=== PATIENT | male | born 1945 | race Caucasian/White ===

== ENCOUNTER 2024-01-28 18:36 | Inpatient (IN) | payer MEDICARE, SELFPAY ==
[2024-01-28] VITALS (9 sets, daily range): BP systolic 120–168; BP diastolic 69–112
--- NOTE | 2024-01-28 16:07 | ED.GENMED ---
History of Present Illness
General
Chief Complaint: Heart Rate Problem
Source: patient and spouse
Exam Limitations: none
Time Seen by Provider: 01/28/24 16:02
Nursing documentation reviewed up to this point in time: agreed with
History of Present Illness
History of Present Illness:
78-year-old male with history of NIDDM, significant arthritis in both his feet on tramadol and meloxicam, noted that both his feet were swollen 3 weeks ago, went to see his PCP Dr. Feng and started on Eliquis as he was found to be in A-fib. He was
also started on metoprolol and his amlodipine was changed to Benadryl. 1 week ago his hydrochlorothiazide was discontinued and he was started on Lasix 40 mg daily.
States his ankle swelling is improving
In past 2 days pt has noted gradually increasing heart rate and blood pressure
Today 2 p.m. BP132/105 HR 150's
3:30 p.m. BP 147/114 HR 130's-150's
Pt denies CP. Does feel SOB especially with exertion.
Has first appt with Cardiology in 2 days
Past History
Past History
ED Past Medical History: Arrthythmia (A fib) and NIDDM
ED Past Surgical History: Tonsilectomy
Social History
Tobacco: Non-smoker
Alcohol: None
Personal:
Living: with family
Review of Systems
Review of Systems
Allergies reviewed?: Yes
All Other Systems: ROS reviewed and negative except as documented in HPI and ROS
Constitutional: Reports fatigue; Denies fever
Respiratory: Reports trouble breathing (COMBS); Denies cough
Cardiac: Denies chest pain, diaphoresis or palpitations
ABD/GI: Denies abdominal pain, nausea or diarrhea
: Reports frequency (on diuretics); Denies dysuria or difficulty voiding
Musculoskeletal: Reports other (chronic pain both feet due to arthritis)
Skin: Reports no symptoms
Neurological: Denies dizzy, headache, weakness or numbness
Phy Exam
Physical Exam
Physical Exam:
GENERAL: No acute distress. A&Ox3.
CONSTITUTIONAL: Afebrile.
EYES: PERRL, conjunctivae normal
Neck: Supple
ENMT: moist mucus membranes, Pharynx nl
RESPIRATORY: Regular respirations, nonlabored, lungs clear.
CARDIOVASCULAR: Irregular rhythm, a fib with RVR rate 130's-150s. no murmurs, no rubs.
GI: Soft, nontender, normal BS
MUSCULOSKELETAL: Moves with ease. Well perfused. +1-2 ankle edema
SKIN: Warm, dry, pink
PSYCH: Normal mood and affect. Well kept, interactive and appropriate
NEUROLOGIC: Awake, alert and oriented. No focal neurological deficits
Course
Orders/Labs/Results
Orders:
Orders
01/28/24 Dinner
2000 calorie (17 carb) Diabetic
At Your Request: Full Participation
Fluid Restriction: 1440 mL/day (48 oz)
Diabetic Diet: Sodium, 2 Gram
01/28/24 15:43
Electrocardiogram (*1) Urgent
Reason for Study: Atrial Fibrillation
01/28/24 16:26
BNP [NT-proBNP] Urgent
Complete Blood Count/With Diff Urgent
Comprehensive Metabolic Panel Urgent
TSH Reflex To Free T4 Urgent
Comment: ADD ON
Troponin I Urgent
01/28/24 16:36
Diltiazem HCl [Cardizem] 20 mg IV NOW STA
CR Chest - 2 Views Urgent
Comment:
Reason For Exam: a fib RVR
01/28/24 16:45
Diltiazem 125 mg/125 ml Nss [Cardizem] 125 mg in 125 ml IV PER PROTOCOL
Currently infusing. Continue current dose and titrate:: Yes
Titrate to keep:: Heart rate 80-100 bpm
Titrate by mg/hr:: 5 mg/hr
Frequency of titrations (minutes):: 15
Maximum dose in mg/hr:: 15
01/28/24 17:49
Furosemide [Lasix] 20 mg IV NOW STA
01/28/24 18:27
Admit/Transfer Patient As Directed
Co-Sign Provider:
Level of Care: Inpatient admission
Assign to:: IVU
Physician / Group: Armandoy
Diagnosis: Afib, CHF
Reason for Hospitalization: Cardizem drip, IV Lasix
Expected length of stay greater than two midnights?: Yes
ELOS- Estimated Length of Stay in days: 3
I certify the patient meets the requirements for IP care: Yes
Furosemide [Lasix] 40 mg IV NOW STA
PRN Pain Medication Management As Directed
May give lesser potent ordered pain med per pt: Yes
preference::
Protocol:: Medication orders for pain may be administered in a
manner that supports deferring to patient preference
when the pt is:
- Requesting an ordered lesser potent pain medication.
Least to most potent pain medications are defined
as: acetaminophen < NSAID < tramadol < opioids
(morphine, oxycodone, hydromorphone).
- Requesting a lesser dose of the same medication IF
ORDERED.
- Requesting a less intrusive route of administration
if both routes are prescribed by the provider (PO <
IV).
01/28/24 18:28
Code Status As Directed
Resuscitation Status: Full Code
01/28/24 20:44
Apixaban [Eliquis] 5 mg PO BID
Dextrose 50%-Water [Dextrose 50% Syringe] 12.5 grams IV [id number] PRN
Glucagon [GlucaGen] 1 mg IM PRN PRN
01/28/24 20:44
Echo 2D MMode Color/Doppler Routine
Reason for Study: heart failure
CARDIOLOGY CONSULT Routine
Consulting Provider: Gael Carias
Was physician already notified: Yes
HF DIETARY CONSULT Routine
HF EDUCATOR CONSULT Routine
Comment:
Activity As Directed
Activity Level: Out of Bed- Chair
Bedside Glucose Monitoring As Directed
Frequency: AC&HS
Additional Instructions:: Change to q6h if pt on TPN, tube feeding or not eating
Intake/ Output As Directed
Frequency: Per unit guidelines
Patient Education As Directed
Type: CHF folder
Comment: give on admission. Document in Interdisciplinary Education record
Sleep Apnea Assessment by RN As Directed
Comment:
Physician Instructions:
Vital Signs As Directed
Frequency: Other
Additional Instructions:: Q12 or per unit guidelines if more frequent.
Weight As Directed
Frequency: Daily
Type of Scale: Standing Scale
Comment: Daily morning weight. If unable to stand, use balanced bed scale.
Weight As Directed
Frequency: Once
Type of Scale: Standing Scale
Comment: Upon Admission. If unable to stand, use balanced bed scale.
Pulse Ox/cont/shift [RESP] Routine
Quantity: 1
Special Instructions: Daily pulse oximetry at rest. If greater than 92% at rest also obtain pulse oximetry
while ambulating as tolerated.
01/28/24 22:00
Atorvastatin [Lipitor] 10 mg PO HS
Tramadol HCl [Ultram] 50 mg PO TID
01/29/24 02:15
Basic Metabolic Panel IN AM
Cardiovascular Evaluation IN AM
Complete Blood Count/No Diff IN AM
Glycohemoglobin (HgbA1c) IN AM
Magnesium IN AM
01/29/24 07:30
Insulin Aspart Corrective Low [Novolog Flexpen-Low Resistance] See Protocol SC AC
01/29/24 08:00
Aspirin Low Dose EC [Aspir Low (Enteric Coated)] 81 mg PO DAILY
Famotidine [Pepcid] 20 mg PO DAILY
Furosemide [Lasix] 40 mg IV DAILY
Lisinopril [Zestril] 40 mg PO DAILY
Metoprolol Xl [Toprol Xl] 25 mg PO DAILY
01/30/24 06:00
Basic Metabolic Panel IN AM
01/31/24 06:00
Basic Metabolic Panel IN AM
Abnormal Lab Results
01/28/24
16:26
Absolute Neuts (auto) 7.0 H 10^3/uL
(1.4-6.5)
Absolute Lymphs (auto) 0.7 L 10^3/uL
(1.2-3.4)
Absolute Monos (auto) 0.8 H 10^3/uL
(0.1-0.6)
Neutrophils % 79.4 H %
(42.2-75.2)
Lymphocytes % 7.7 L %
(20.5-51.1)
Monocytes % 9.5 H %
(1.7-9.3)
BUN 25 H mg/dl
(9-20)
Creatinine 1.4 H mg/dL
(0.7-1.3)
Glucose 192 H mg/dl
(70-99)
Calcium 10.5 H mg/dl
(8.4-10.2)
01/28/24 16:26
01/28/24 16:26
Vital Signs
Initial and Last Documented VS:
Initial Vital Signs
Temp Pulse Resp BP Pulse Ox
97.4 F 150 18 168/110 96
01/28/24 15:49 01/28/24 15:49 01/28/24 15:49 01/28/24 15:49 01/28/24 15:49
Last Documented Vital Signs
Temp Pulse Resp BP Pulse Ox
97.6 F 94 20 116/89 95
01/29/24 19:49 01/29/24 20:00 01/29/24 19:49 01/29/24 19:49 01/29/24 20:10
Associate Professor Of Violin consulted with Physician
Associate Professor Of Violin consulted with physician?: Yes
Name of Physician Consulted: Elise
MDM/Problems Addressed
Differential Diagnosis Includes:
Afib w RVR, MD, CHF, Thyroid disorder
MDM/Problems Addressed:
78-year-old male with history of NIDDM, significant arthritis in both his feet on tramadol and meloxicam, noted that both his feet were swollen 3 weeks ago, went to see his PCP Dr. Feng and started on Eliquis as he was found to be in A-fib. He was
also started on metoprolol and his amlodipine was changed to Benadryl. 1 week ago his hydrochlorothiazide was discontinued and he was started on Lasix 40 mg daily.
States his ankle swelling is improving
In past 2 days pt has noted gradually increasing heart rate and blood pressure
Today 2 p.m. BP132/105 HR 150's
3:30 p.m. BP 147/114 HR 130's-150's
Pt denies CP. Does feel SOB especially with exertion.
Has first appt with Cardiology in 2 days
Case discussed with Dr. Olivares
Cardizem ordered. Pt stable.
5:45 p.m.
In to re evaluate pt.
HR 100-125. BP 123/69
Cardizem increased to 7.5 mg
Lasix IV ordered
CXR showing mild increase in interstitial markings
BNP elevated 2420
Pt states feeling better. Had sinus stuffiness and pressure.
Discussed with Dr. Olivares who agrees with admission, mild fluid overload despite Lasix, Afib with RVR, improving on Cardizem drip, may have to consider cardioversion
Hospitalist notified of admission.
Chronic conditions affecting care: Arrhythmia
*EKG
EKG Intrepretation Date: 01/28/24
Interpretation: abnormal
Heart Rate: 152
Rate: tachycardiac
Rhythm: a-fib
[place]: normal axis
QRS Pattern: normal QRS
Ischemia: no ischemia
*Critical Care Note
Total Time (30-74mins, 75-104mins- exclusive of procedures): Not Applicable
ED Attending Note
-
Portions of this chart may have been created with voice recognition software.� Occasional wrong word or��sound alike� substitutions may have occurred due to the inherent limitations of voice recognition software.
Discharge Plan
Departure
Patient Disposition: Admit
Date of Disposition: 01/28/24
Time of Disposition: 17:53
Admit to: Telemetry
Presentation/result/management discussed w/ accepting MD/DO: Hospitalist
Condition: Fair
Discharge Problem:
Atrial fibrillation with rapid ventricular response, CHF (congestive heart failure)
Interventions
Interventions:
*Risk Screen - Suicide Last Done: 01/28/24 20:59
*General Assessment Last Done: 01/28/24 15:50
*Neglect/Abuse Screening Last Done: 01/28/24 15:50
ED- Fall Risk Assessment Last Done: 01/28/24 16:14
*ED COVID-19 Vaccine History Last Done: 01/28/24 20:54
*Nursing Disposition Last Done: 01/28/24 21:11
ED- Cardiac Assessment Last Done: 01/28/24 16:14
ED- Pulmonary Assessment Last Done: 01/28/24 16:14
Discharge Date and Time
Discharge Date/Time: 01/28/24 21:29
[2024-01-28 16:34] LABS: % Basophils 0.9 % (0-2); % Immature Granulocytes 0.5 % (0-0.5); % Lymphocytes 7.7 % (20.5-51.1); % Monocytes 9.5 % (1.7-9.3); % Neutrophils 79.4 % (42.2-75.2); Absolute Basophils 0.1 10^3/uL (0-0.2); Absolute Eosinophils 0.2 10^3/uL (0-0.7); Absolute Lymphocytes 0.7 10^3/uL (1.2-3.4); Absolute Monocytes 0.8 10^3/uL (0.1-0.6); Hematocrit 45.2 % (39.0-52.0); Hemoglobin 15.4 g/dL (13.0-18.0); Mean Corp Hgb Conc. 34.1 g/dL (33.0-37.0); Mean Corpuscular Hgb 30.3 pg (27.0-31.0); Mean Corpuscular Volume 88.8 fL (80.0-94.0); Mean Platelet Volume 10.2 fL (7.4-10.4); Nucleated Red Blood Cells % 0 % (-); Platelet Count 198 10^3/uL (130-400); Red Blood Cell Count 5.09 10^6/uL (4.70-6.10); White Blood Cell Count 8.8 10^3/uL (4.8-10.8)
[2024-01-28 16:58] LABS: ALT (SGPT) 29 U/L (0-50); AST (SGOT) 29 U/L (17-59); Albumin 4.3 g/dl (3.5-5.0); Alkaline Phosphatase 119 U/L (38-126); Blood Urea Nitrogen 25 mg/dl (9-20); Calcium 10.5 mg/dl (8.4-10.2); Carbon Dioxide 25 mmol/L (22-30); Chloride 103 mmol/L (98-107); Glucose 192 mg/dl (70-99); Potassium 4.7 mmol/L (3.5-5.1); Sodium 143 mmol/L (135-145); Total Bilirubin 1.1 mg/dl (0.2-1.3); Total Protein 7.5 g/dl (6.3-8.2); eGFR 50.81
[2024-01-28] MEDS: CARDIZEM 20 MG IV (17:06)
[2024-01-28] MEDS: CARDIZEM 125 IV (17:06)
[2024-01-28 17:20] LABS: NT-proBNP 2420 pg/ml; Troponin I < 0.012 ng/ml
[2024-01-28 17:51] LABS: TSH Reflex To Free T4 2.16 uIU/ml (0.47-4.68)
--- NOTE | 2024-01-28 18:02 | HPS.HSE ---
Family Physician
-
Family Physician: Yvon Feng
Chief Complaint
-
Elevated Heart Rate
History of Present Illness
Patient is an 78 y/o male past medical history of CKD, DM, HTN and recently diagnosed atrial fibrillation who presents with elevated heart rate and shortness of breath. Patient was diagnosed with a-fib a few weeks ago by his PCP at which time he
was started on metoprolol and Eliquis. Patient had a follow-up appointment last week at which time his HCTZ was switched to Lasix due to increasing lower extremity edema. Today patient noted significantly elevated heart rate which prompted him to
come to the emergency department for evaluation. He is also complaining about persistent lower extremity which he states is better with the Lasix but not yet back baseline, increasing abdominal distention and shortness of breath. He denies fever,
sweats or chills.
Medical History
Past Medical History
Past Medical History: Reports Other
Additional Past Medical History:
Atrial Fibrillation
Essential Hypertension
Hyperlipidemia
Diabetes Mellitus, Type II
CKD Stage IIIA
Charcot Foot
Past Surgical History: Reports Other
Additional Past Surgical History:
Tonsillectomy
Pilonidal Cyst
Social History
Tobacco: Former Smoker (Quit about 25 years ago)
Alcohol: Daily (Patient 1-2 scotches per night)
Family History
Family History: Not pertinent
Allergies / Home Medications
Allergies reflects when Allergies were last updated in [facility].
Home Medications with original date entered in [facility]
Allergy/Medication List:
Allergies
Allergy/AdvReac Type Severity Reaction Status Date / Time
No Known Drug Allergies Allergy Unknown Verified 01/28/24 15:55
Home Medications
apixaban 5 mg tablet (Eliquis) 5 mg PO BID 01/28/24
aspirin 81 mg tablet,delayed release 81 mg PO DAILY 01/28/24
benazepril 40 mg tablet 40 mg PO DAILY 01/28/24
famotidine 20 mg tablet (Pepcid AC Maximum Strength) 20 mg PO DAILY 01/28/24
furosemide 40 mg tablet (Lasix) 20 mg PO DAILY 01/28/24
meloxicam 7.5 mg tablet 7.5 mg PO DAILY 01/28/24
metoprolol succinate 25 mg tablet,extended release 24 hr 25 mg PO DAILY 01/28/24
simvastatin 5 mg tablet 5 mg PO HS 01/28/24
tramadol 50 mg tablet 50 mg PO TID 01/28/24
Review of Systems
-
A 12 point ROS was completed and negative except as noted: Yes
Constitutional: Reports Weight Gain; Denies Fever or Chills
Respiratory: Reports Trouble Breathing
Cardiac: Denies Chest Pain or Palpitations
Abdomen/GI: Denies Nausea, Vomiting, Diarrhea or Constipated
Physical Exam
Vital Signs
Vital Signs
Temp Pulse Resp BP Pulse Ox
97.4 F 150 18 168/110 96
01/28/24 15:49 01/28/24 15:49 01/28/24 15:49 01/28/24 15:49 01/28/24 15:49
Physical Exam
General: Comfortable and Conversant
HEENT: Anicteric and Moist mucous membranes
Respiratory: Rales (Faint at bilateral bases)
Cardiac: S1/S2, Irregular Rhythm and Tachycardia
GI: Soft, Non Tender and Other (Slightly distended / Protuberant)
Rectal: Deferred by Provider
Musculoskeletal: No Clubbing, No Cyanosis and Other (+1 edema bilateral lower extremities)
Skin: Warm and Dry
Neuro: Awake, Alert, Oriented and Nonfocal/grossly intact
Psych: Calm
Laboratory Results
-
01/28/24 16:26
01/28/24 16:26
Laboratory Results
Total Bilirubin 1.1 mg/dl (0.2-1.3) 01/28/24 16:26
AST 29 U/L (17-59) 01/28/24 16:26
ALT 29 U/L (0-50) 01/28/24 16:26
Alkaline Phosphatase 119 U/L (38-126) 01/28/24 16:26
Troponin I < 0.012 ng/ml 01/28/24 16:26
Chest X-Ray:
Mild cardiomegaly without associated pulmonary edema
Data Reviewed
-
Diagnostic Radiology: Report Reviewed by me
Lab Data: Labs Reviewed by me
Impression/Plan
-
Atrial Fibrillation with Rapid Ventricular Response
-Consult Cardiology
-Continue Cardizem drip
-Continue Toprol XL as prior to admission
-Continue Eliquis
New Onset Heart Failure (unknown type), likely related to uncontrolled heart rate
-Check Echocardiogram
-Continue Lasix 40mg IV Daily
-Monitor Is&Os and Daily Weights
Essential Hypertension
-Continue benazepril with hold parameters
Hyperlipidemia
-Continue simvastatin
Diabetes Mellitus, Type II
-Patient does not take any diabetic medications
-Continue diabetic diet
-Check Hgba1c
-Monitor sugars and continue coverage insulin
CKD Stage IIIA
-Monitor creatinine closely while on diuretics
DVT proph: Eliquis
Code Status: Full Code
[2024-01-28] MEDS: LASIX 20 MG IV (18:23)
[2024-01-28] MEDS: LASIX 40 MG IV (19:09)
[2024-01-28] MEDS: ELIQUIS PO (21:22)
[2024-01-28] MEDS: LIPITOR 10 MG PO (21:26)
[2024-01-28] MEDS: ULTRAM 50 MG PO (21:28)
[2024-01-28 21:35] LABS: Glucose - Point of Care 184 mg/dl (70-99)
--- NOTE | 2024-01-29 01:14 | PTCARENOTE ---
Rec'd pt from ED. Oriented pt to room. Pt answered all admission questions approp. Tele- afib. HR 120-130s. Cardizem gtt infusing at 15ml/hr. No c/o pain/discomfort. Pt voiding clear yellow urine. Plan of care reviewed w/ pt. Verbalizes
understanding. Currently in bed; call cleve w/in reach.
[2024-01-29] MEDS: CARDIZEM 125 IV ×3 (02:03→18:04)
[2024-01-29 02:07] VITALS: BP 112/93
[2024-01-29 02:29] LABS: Hemoglobin 13.9 g/dL (13.0-18.0); Mean Corp Hgb Conc. 34.8 g/dL (33.0-37.0); Mean Corpuscular Hgb 30.2 pg (27.0-31.0); Mean Corpuscular Volume 86.8 fL (80.0-94.0); Mean Platelet Volume 10.1 fL (7.4-10.4); Platelet Count 171 10^3/uL (130-400); Red Blood Cell Count 4.61 10^6/uL (4.70-6.10); Red Cell Dist. Width 13.1 % (11.5-14.5); White Blood Cell Count 7.9 10^3/uL (4.8-10.8)
[2024-01-29 02:59] LABS: Blood Urea Nitrogen 25 mg/dl (9-20); Calcium 10.2 mg/dl (8.4-10.2); Carbon Dioxide 26 mmol/L (22-30); Chloride 104 mmol/L (98-107); Glucose 168 mg/dl (70-99); HDL Cholesterol 56 mg/dl; LDL Cholesterol, Calculated 29 mg/dl; Magnesium 1.9 mg/dl (1.6-2.3); Potassium 4.1 mmol/L (3.5-5.1); Sodium 143 mmol/L (135-145); Total Cholesterol 101 mg/dl (50-199); Triglyceride 81 mg/dl (10-149); Very Low Density Lipoprotein 16 mg/dl (0-30); eGFR 55.53
[2024-01-29 07:47] VITALS: BP 117/89
[2024-01-29 07:51] LABS: Glucose - Point of Care 173 mg/dl (70-99)
[2024-01-29] MEDS: PEPCID 20 MG PO (08:25)
[2024-01-29] MEDS: ULTRAM 50 MG PO ×3 (08:25→22:16)
[2024-01-29] MEDS: TOPROL XL 25 MG PO (08:25)
[2024-01-29] MEDS: ZESTRIL 40 MG PO (08:25)
[2024-01-29] MEDS: ASPIR LOW (ENTERIC COATED) 81 MG PO (08:26)
[2024-01-29] MEDS: LASIX 40 MG IV (08:26)
[2024-01-29] MEDS: ELIQUIS 5 MG PO ×2 (08:29→20:10)
[2024-01-29] MEDS: NOVOLOG FLEXPEN-LOW RESISTANCE 1 UNITS SC ×2 (08:57→12:39)
--- NOTE | 2024-01-29 09:12 | CON.CAR ---
Consultation
Consultation Request
Date/Time Consultation Requested: 01/29/24 9 PM
Date/Time Consultation Performed: 01/30/2024 8 AM
Requesting Provider: Hospitalist
Performing Provider: Dr. Carias
Reason for Consultation: A-fib and shortness of breath
Medical History
-
History of Present Illness:
Primary care physician Dr. Feng
78-year-old male patient with recently diagnosed A-fib, diabetes, hypertension and CKD who presents with elevated heart rate and shortness of breath. Patient presented to his PCP because he says the arthritis in his feet was really bothering him.
Patient had also noticed that his heart was racing seen by PCP and was noted to be in A-fib. Started on metoprolol and Eliquis. There was a little bit of edema at that time and amlodipine was discontinued.. Patient seen in follow-up in the last
week HCTZ was switched to Lasix due to increased lower extremity edema. Since having A-fib patient's had some exertional shortness of breath no orthopnea. Yesterday they noted that his heart rates were quite elevated and after further discussion
with his decision was made to go to the ER. No acute change in shortness of breath no chest discomfort. He has some intermittent abdominal discomfort but it is not exertional. Tolerating Eliquis with no bleeding issues. He has been on it at
least a couple weeks patient cannot give me the exact start date he will try and determine this.
Review of systems otherwise unremarkable
Past medical history
Persistent atrial fibrillation recent diagnosis
Hypertension
Diabetes CKD
BECKA
Social history former smoker quit 25 years ago
Family history negative for premature CAD
ECG tracing reviewed 01/28/2024 A-fib with RVR heart rate in the 150s
Past Medical History
Past Medical History: Other (As noted)
Social History
Tobacco: Former Smoker
Family History
Family History: CAD (Negative)
Allergies / Home Medications
Allergy/AdvReac Type Severity Reaction Status Date / Time
No Known Drug Allergies Allergy Unknown Verified 01/28/24 15:55
�Medication �Instructions �Recorded �Confirmed �Type
apixaban 5 mg tablet (Eliquis) 5 mg PO BID Blood Clot 01/28/24 01/28/24 History
Prevention/Tx
aspirin 81 mg tablet,delayed 81 mg PO DAILY Blood Clot 01/28/24 01/28/24 History
release Prevention/Tx
benazepril 40 mg tablet 40 mg PO DAILY Blood Pressure 01/28/24 01/28/24 History
famotidine 20 mg tablet (Pepcid AC 20 mg PO DAILY Gastrointestinal 01/28/24 01/28/24 History
Maximum Strength) Issue
furosemide 40 mg tablet (Lasix) 20 mg PO DAILY Fluid 01/28/24 01/28/24 History
Retention/Swelling
meloxicam 7.5 mg tablet 7.5 mg PO DAILY Pain 01/28/24 01/28/24 History
metoprolol succinate 25 mg 25 mg PO DAILY Heart Failure 01/28/24 01/28/24 History
tablet,extended release 24 hr
simvastatin 5 mg tablet 5 mg PO HS High Cholesterol 01/28/24 01/28/24 History
tramadol 50 mg tablet 50 mg PO TID Pain 01/28/24 01/28/24 History
Review of Systems
-
All other systems: Negative unless noted
Physical Exam
Vital Signs
Temp Pulse Resp BP Pulse Ox
97.3 F 108 20 117/89 94
01/29/24 07:45 01/29/24 08:26 01/29/24 07:45 01/29/24 08:26 01/29/24 07:45
Lab Results
01/29/24 02:15
01/29/24 02:15
Troponin I < 0.012 ng/ml 01/28/24 16:26
Hei-P-Itdipwuekkz Pept 2420 pg/ml 01/28/24 16:26
Physical Exam
General: Well Developed and Well Nourished
HEENT: Normocephalic
Respiratory: Clear and Other (No wheezes or rhonchi)
Cardiac: Irregular Rhythm
GI: Soft, Non Tender, Non Distended, Normal Bowel Sounds and Other (No mass no Passman megaly)
Musculoskeletal: No Clubbing, No Cyanosis and Edema (Mild ankle edema)
Skin: Warm, Dry and Rash (No rash)
Neuro: Awake and Alert
Hematologic/Lymphatic: No Lymphadenopathy
Psych: Calm
Impression / Plan
-
A-fib with RVR
CHADSVASC 5 (Age greater than 75, hypertension, diabetes, CHF)
Anticoagulation with Eliquis
Echocardiogram 01/30/2024
FELISHA cardioversion this admission if it is determined that he is consistently been on Eliquis greater than 3 weeks then could just consider cardioversion.
Acute left heart failure -mild
-Minimal edema. mildly elevated proBNP. No overt evidence of heart failure by chest x-ray
-Suspect related to A-fib with RVR. LV function unknown.
-Await echo
-Treatment of A-fib
-Diuresis with close monitoring of renal function.
Hypertension diabetes
CKD by history. Creatinine 1.4 on admission now 1.3 continue to monitor with diuretic
Data Reviewed
-
EKG: Tracing Personally Visualized and interpreted and Report Reviewed by me
Radiology: Report Reviewed by me (Chest x-ray without overt evidence of heart failure)
Medical Tests (Nuc Med, Echo etc): Report Reviewed by me
Labs: Labs Reviewed by me and Discussed with Nurse
[2024-01-29 11:38] VITALS: BP 118/95
[2024-01-29 12:11] LABS: Glucose - Point of Care 185 mg/dl (70-99)
[2024-01-29 12:22] LABS: Glycohemoglobin (HgbA1c) 6.8 % (4.0-5.6)
--- NOTE | 2024-01-29 13:34 | W.PN.HOSP.TC ---
Today's Communication/Plan
-
see outlined plan below
Assessment / Plan
Assessment / Plan
Assessment:
Parox Afib with RVR
- on Cardizem drip
- continue Toprol XL
- continue Eliquis
- NPO p MN for FELISHA/CV
- CBC Cards
New Onset Heart Failure (unknown type), likely related to uncontrolled heart rate so presuming diastolic
- Echo Tuesday
- continue IV Lasix - requires intensive monitoring of Is&Os and Daily Weights, lytes
Essential Hypertension
- continue benazepril with hold parameters
Hyperlipidemia
- continue simvastatin
Diabetes Mellitus, Type II
- Patient does not take any diabetic medications
- Continue diabetic diet
- Hgba1c: 6.8%
- Monitor sugars and continue coverage insulin
CKD Stage IIIA
- Monitor creatinine closely while on diuretics
DVT proph: Eliquis
Code Status: Full Code
Anticipated Discharge: > 48 hours
Subjective/Interval History
-
Date of Service: January 29, 2024
resting comfortably, no complaints presently
in rate controlled Afib
Objective Data
-
Labs:
Laboratory Results
01/29/24
02:15
WBC 7.9
Hgb 13.9
Hct 40.0
Plt Count 171
Sodium 143
Potassium 4.1
Chloride 104
Carbon Dioxide 26
BUN 25 H
Creatinine 1.3
Glucose 168 H
Calcium 10.2
Vital Signs:
Vital Signs
Temp Pulse Resp BP Pulse Ox
97.5 F 130 20 117/89 98
01/29/24 11:36 01/29/24 10:45 01/29/24 11:36 01/29/24 08:26 01/29/24 11:36
I&O
01/28/24 01/29/24 01/30/24
06:59 06:59 06:59
Intake Total 100 / 100
Balance 100 / 100
Physical Exam
-
General: No Apparent Distress
HEENT: Normocephalic and Atraumatic
Respiratory: Negative Wheezes
Cardiac: Irregular Rhythm
Genito-urinary: No Costovertebral Tender
Musculoskeletal: Edema, Right Lower Extrem and Edema, Left Lower Extrem
Neuro: AO x 3
Psych: Calm
Data Reviewed
-
Total Time Spent with Patient (in minutes): 51
Labs: Labs Reviewed by me
[2024-01-29 15:23] VITALS: BP 110/80
[2024-01-29 16:29] LABS: Glucose - Point of Care 202 mg/dl (70-99)
--- NOTE | 2024-01-29 16:45 | PTCARENOTE ---
received patient this am , monitor shows Afib with IV Cardizem @ 15ml/hr as ordered via left arm, site has blood around insertion site but very good blood return. VSS, explained to patient his HgbA1C is 6.8, verbalized understanding of watching his
BS. patient is aware that he is NPO after MN for FELISHA/CV.
[2024-01-29] MEDS: NOVOLOG FLEXPEN-LOW RESISTANCE 2 UNITS SC (16:59)
[2024-01-29 19:49] VITALS: BP 116/89
--- NOTE | 2024-01-29 20:56 | PTCARENOTE ---
Rec'd pt at handoff. AOX3 and pleasant. Cardizem gtt infusing at 15ml/hr. Tele remains afib. HR 80-100s. Pt has no complaints of pain/discomfort at this time. Plan of care reviewed w/ pt. Verbalizes understanding. Aware of NPO status after midnight
for FELISHA/CV. Currently in bed; call cleve w/in reach.
[2024-01-29 22:13] VITALS: BP 119/100
[2024-01-29] MEDS: LIPITOR 10 MG PO (22:17)
[2024-01-29 22:20] LABS: Glucose - Point of Care 177 mg/dl (70-99)
[2024-01-30] VITALS (8 sets, daily range): BP systolic 109–133; BP diastolic 72–88; BMI 31.7
[2024-01-30] MEDS: CARDIZEM 125 IV ×2 (01:59→10:08)
[2024-01-30 02:43] LABS: Hematocrit 39.3 % (39.0-52.0); Hemoglobin 13.7 g/dL (13.0-18.0); Mean Corp Hgb Conc. 34.9 g/dL (33.0-37.0); Mean Corpuscular Hgb 30.4 pg (27.0-31.0); Mean Corpuscular Volume 87.3 fL (80.0-94.0); Mean Platelet Volume 10.5 fL (7.4-10.4); Platelet Count 181 10^3/uL (130-400); Red Cell Dist. Width 13.2 % (11.5-14.5); White Blood Cell Count 7.5 10^3/uL (4.8-10.8)
[2024-01-30 02:58] LABS: Blood Urea Nitrogen 31 mg/dl (9-20); Calcium 9.7 mg/dl (8.4-10.2); Carbon Dioxide 26 mmol/L (22-30); Chloride 102 mmol/L (98-107); Estimated Creatinine Clearance 50 ml/min; Glucose 148 mg/dl (70-99); Potassium 3.8 mmol/L (3.5-5.1); Sodium 139 mmol/L (135-145); eGFR 50.81
[2024-01-30 06:10] LABS: Glucose - Point of Care 144 mg/dl (70-99)
[2024-01-30] MEDS: NOVOLOG FLEXPEN-LOW RESISTANCE SC (06:11)
--- NOTE | 2024-01-30 08:21 | W.PN.HOSP.TC ---
Addendum entered and electronically signed by Shlomo Handley DO 01/30/24 11:59:
Cardiology service recommends discharge home today with outpatient follow-up.
Original Note:
Today's Communication/Plan
-
FELISHA/cardioversion
Assessment / Plan
Assessment / Plan
Gen-AAOx3, NAD
HEENT-NC, AT, anicteric, clear oral mm
Neck-supple
CV-irregular, no M, +S1/S2
Lungs-clear B/L
Abd-soft, NT, ND
Ext-no edema
Musculoskeletal-no cyanosis, clubbing
Skin-warm and dry
Neuro-grossly non-focal
Psych-calm, cooperative
Parox Afib with RVR
- on Cardizem drip
- continue Toprol XL
- continue Eliquis
- NPO p MN for FELISHA/CV
- CBC Cards
New Onset Heart Failure (unknown type), likely related to uncontrolled heart rate so presuming diastolic
- Echo Tuesday
- continue IV Lasix - requires intensive monitoring of Is&Os and Daily Weights, lytes
Essential Hypertension
- continue benazepril with hold parameters
Hyperlipidemia
- continue simvastatin
Diabetes Mellitus, Type II
- Patient does not take any diabetic medications
- Continue diabetic diet
- Hgba1c: 6.8%
- Monitor sugars and continue coverage insulin
CKD Stage IIIA
- Monitor creatinine closely while on diuretics
Obesity due to excess calories
DVT proph: Eliquis
Code Status: Full Code
Anticipated Discharge: Within 24 hours
Subjective/Interval History
-
Date of Service: January 30, 2024
Patient seen and examined. No complaints.
Objective Data
-
Labs:
Laboratory Results
01/30/24
02:08
WBC 7.5
Hgb 13.7
Hct 39.3
Plt Count 181
Sodium 139
Potassium 3.8
Chloride 102
Carbon Dioxide 26
BUN 31 H
Creatinine 1.4 H
Glucose 148 H
Calcium 9.7
Vital Signs:
Vital Signs
Temp Pulse Resp BP Pulse Ox
97.3 F 85 18 109/86 93
01/30/24 07:29 01/30/24 02:30 01/30/24 07:29 01/30/24 02:02 01/30/24 02:11
I&O
01/29/24 01/30/24 01/31/24
06:59 06:59 06:59
Intake Total 100 / 100 420 / 420
Balance 100 / 100 420 / 420
Review of Systems
-
History Source: Patient
All other systems: Reviewed and negative
[2024-01-30] MEDS: TOPROL XL 25 MG PO (08:23)
[2024-01-30] MEDS: ASPIR LOW (ENTERIC COATED) 81 MG PO (08:23)
[2024-01-30] MEDS: ZESTRIL 40 MG PO (08:24)
[2024-01-30] MEDS: ULTRAM 50 MG PO ×2 (08:24→15:44)
[2024-01-30] MEDS: ELIQUIS 5 MG PO (08:24)
[2024-01-30] MEDS: PEPCID 20 MG PO (08:27)
--- NOTE | 2024-01-30 09:45 | CARDSERVLU ---
Echocardiogram with Lumason completed after protocol screening completed. Allergies verified.
Patent IV site: __Rt FA___
IV site flushed with 0.9% NaCl pre and post administration.
Diluted bolus method utilized to enhance visualization of ventricular de santiago.
Total volume given: __2.0__ mL
Patient tolerated all procedures well without complications.
--- NOTE | 2024-01-30 09:55 | PTCARENOTE ---
received patient this am, patient remains NPO for FELISHA/CV. monitor shows Afib, VSS. IV Cardizem @ 15ml/hr via right ant. without difficulties. Echo completed at bedside.
--- NOTE | 2024-01-30 10:55 | W.PN.CD ---
Today's Communication / Plan
-
FELISHA/cardioversion today
Metoprolol for rate control
Eliquis for anticoagulation
Switch to p.o. Lasix
Impression / Plan
-
A-fib with RVR
CHADSVASC 5 (Age greater than 75, hypertension, diabetes, CHF)
Anticoagulation with Eliquis. Metoprolol 25 mg daily for rate control.
Echocardiogram 01/30/2024
FELISHA cardioversion today
Acute left heart failure -mild
-Minimal edema. mildly elevated proBNP. No overt evidence of heart failure by chest x-ray
-Suspect related to A-fib with RVR. LV function unknown.
-Await echo
-Treatment of A-fib
-Diuresis with close monitoring of renal function.
Hypertension diabetes
CKD by history. Creatinine 1.4 on admission, stable continue to monitor with diuretic
Subjective: Patient feels improved compared to presentation. Lower extremity edema has improved. Patient is hooked up to monitor which shows atrial fibrillation.
Physical Exam
Vital Signs/Labs
Vital Signs
Temp Pulse Resp BP Pulse Ox
97.3 F 90 18 120/88 96
01/30/24 07:29 01/30/24 09:30 01/30/24 07:29 01/30/24 08:24 01/30/24 08:30
01/29/24 01/30/24 01/31/24
06:59 06:59 06:59
Actual Weight 101.7 kg 100.2 kg
01/30/24 02:08
01/30/24 02:08
Magnesium 1.9 mg/dl (1.6-2.3) 01/29/24 02:15
Triglycerides 81 mg/dl (10-149) 01/29/24 02:15
LDL Cholesterol, Calc 29 mg/dl 01/29/24 02:15
VLDL Cholesterol, Calc 16 mg/dl (0-30) 01/29/24 02:15
HDL Cholesterol 56 mg/dl 01/29/24 02:15
01/28/24
16:26
Utj-W-Npctafnjxjm Pept 2420
LAB Results
01/28/24
16:26
Troponin I < 0.012
Physical Exam
Constitutional: No acute distress and Comfortable
Cardiovascular: Rhythm/rate is irregular, Pedal edema present (1+ pitting edema bilaterally) and Murmur/rub/gallop absent
Respiratory: Respiratory effort normal and Lungs clear to auscul.
Data Reviewed
-
Date of Service: January 30, 2024
EKG: Tracing Personally Visualized and interpreted
Labs: Labs Reviewed by me
Total Time Spent with Patient (in minutes): 35
--- NOTE | 2024-01-30 12:02 | W.DS.TRANS ---
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
-
Discharge Instructions:
Sleep Apnea Risk Intermediate
Discharge Diagnosis/Procedures Rapid atrial fibrillation, heart failure
Diet Low Sodium,Diabetic, Carb Controlled
Activity As tolerated
Driving Restrictions As prior to admission
Bathing Restrictions None
Instructions: *[facility] Heart Failure Instructions
Stand-Alone Forms:
Changes to Home Medications: No
Discharge Medications:
DC Medications w/original date entered in [facility]
apixaban 5 mg tablet (Eliquis) 5 mg PO BID Blood Clot Prevention/Tx 01/28/24
aspirin 81 mg tablet,delayed release 81 mg PO DAILY Blood Clot Prevention/Tx 01/28/24
benazepril 40 mg tablet 40 mg PO DAILY Blood Pressure 01/28/24
famotidine 20 mg tablet (Pepcid AC Maximum Strength) 20 mg PO DAILY Gastrointestinal Issue 01/28/24
metoprolol succinate 25 mg tablet,extended release 24 hr 25 mg PO DAILY Heart Failure 01/28/24
simvastatin 5 mg tablet 5 mg PO HS High Cholesterol 01/28/24
tramadol 50 mg tablet 50 mg PO TID Pain 01/28/24
furosemide 40 mg tablet 40 mg PO DAILY #30 tabs 01/30/24
Home Medication Changes
Pending Results: No
--- NOTE | 2024-01-30 12:42 | PTCARENOTE ---
patient arrived from s/p CV, monitor shows SB, o2 sat 92% on 4LNC, lung vera diminished. family at bedside.
--- NOTE | 2024-01-30 13:02 | CM ---
Chart reviewed. Patient is independent of ADLS, lives with his in a 4 [address], elevator, 4 JONAS, 0 DME. Plan is for the patient to return home. CM to follow
[2024-01-30] MEDS: LASIX 40 MG PO (13:27)
[2024-01-30 13:58] LABS: Glucose - Point of Care 163 mg/dl (70-99)
[2024-01-30] MEDS: NOVOLOG FLEXPEN-LOW RESISTANCE 1 UNITS SC (13:58)
[2024-01-30] MEDS: FLUAD (65 yr+) 2024-2025 FORMULA 0.5 ML IM (14:03)
[2024-01-30] MEDS: LASIX IV (14:20)
--- NOTE | 2024-01-30 14:36 | PTCARENOTE ---
patient is now on 2 LNC, o2 sat 95%
--- NOTE | 2024-01-30 15:37 | PTCARENOTE ---
presently on RA 94%. ambulated to BR without assistance, lisa well.
--- NOTE | 2024-01-30 15:53 | PTCARENOTE ---
Addendum entered by Daphney Park RN 01/30/24 15:55:
flu vaccine given as ordered.
Original Note:
D/C instructions given top patient and step daughter, both verbalizes understanding. INT D/C'd, telemetry D/C'd personal belongings packed and sent home with patient. D/C to home via wc accompanied by staff.
== END 2024-01-30 16:23 | disposition home or self-care (01) | DRG 308 ==
LOC: IVU 18:36
PROVIDERS: Internal Medicine; Physician Assistant Medical; Registered Nurse; Student in an Organized Health Care Education/Training Program; ADMITTING PHYSICIAN Internal Medicine; ATTENDING PHYSICIAN Hospitalist; CONSULT PHYSICIAN Internal Medicine Cardiovascular Disease; EMERGENCY PHYSICIAN Emergency Medicine; FAMILY PHYSICIAN Family Medicine
PROC: 3E02340 Introduction of Influenza Vaccine into Muscle, Percutaneous Approach (ICD-10-PCS; 2024-01-30)
PROC: 5A2204Z Restoration of Cardiac Rhythm, Single (ICD-10-PCS; 2024-01-30)
PROC: B24BZZ4 Ultrasonography of Heart with Aorta, Transesophageal (ICD-10-PCS; 2024-01-30)
DX: I48.0 Paroxysmal atrial fibrillation (principal); I50.31 Acute diastolic (congestive) heart failure; Q21.12 Patent foramen ovale; E11.22 Type 2 diabetes mellitus with diabetic chronic kidney disease; N18.31 Chronic kidney disease, stage 3a; I12.9 Hypertensive chronic kidney disease with stage 1 through stage 4 chronic kidney disease, or unspecified chronic kidney disease; E78.5 Hyperlipidemia, unspecified; E11.610 Type 2 diabetes mellitus with diabetic neuropathic arthropathy; G47.33 Obstructive sleep apnea (adult) (pediatric); I07.1 Rheumatic tricuspid insufficiency; E66.09 Other obesity due to excess calories; Z68.31 Body mass index [BMI] 31.0-31.9, adult; Z23 Encounter for immunization; Z87.891 Personal history of nicotine dependence; Z79.01 Long term (current) use of anticoagulants; Z79.82 Long term (current) use of aspirin; Z79.899 Other long term (current) drug therapy
CPT/HCPCS: 71046; 80048; 80053; 80061; 82962; 83036; 83735; 83880; 84443; 84484; 85025; 85027; 90662; 92960; 93005; 93306; 93312; 93320; 93325; 96365; 96366; 96375; 99285; G0008; Q9950

== ENCOUNTER → 2024-02-20 16:37 | Outpatient (REF) | payer MEDICARE, SELFPAY | LOC: HWRAD 16:37 | PROVIDERS: ATTENDING PHYSICIAN Family Medicine | DX: R10.84 Generalized abdominal pain (principal) | CPT/HCPCS: 74018 ==

== ENCOUNTER 2024-03-01 17:46 | Inpatient (IN) | payer MEDICARE, OTHER, SELFPAY ==
[2024-03-01] VITALS (12 sets, daily range): BP systolic 107–162; BP diastolic 77–121; BMI 34.4; BMI 34.0
[2024-03-01 14:09] LABS: % Basophils 0.8 % (0-2); % Eosinophils 1.8 % (0-6); % Immature Granulocytes 0.5 % (0-0.5); % Monocytes 10.5 % (1.7-9.3); % Neutrophils 74.4 % (42.2-75.2); Absolute Basophils 0.1 10^3/uL (0-0.2); Absolute Eosinophils 0.2 10^3/uL (0-0.7); Absolute Monocytes 0.9 10^3/uL (0.1-0.6); Absolute Neutrophils 6.4 10^3/uL (1.4-6.5); Hematocrit 48.6 % (39.0-52.0); Mean Corp Hgb Conc. 32.9 g/dL (33.0-37.0); Mean Corpuscular Hgb 29.6 pg (27.0-31.0); Mean Corpuscular Volume 89.8 fL (80.0-94.0); Mean Platelet Volume 10.8 fL (7.4-10.4); Nucleated Red Blood Cells % 0 % (-); Platelet Count 175 10^3/uL (130-400); Red Blood Cell Count 5.41 10^6/uL (4.70-6.10); Red Cell Dist. Width 13.3 % (11.5-14.5); White Blood Cell Count 8.6 10^3/uL (4.8-10.8)
[2024-03-01 14:51] LABS: NT-proBNP 3330 pg/ml
[2024-03-01 14:59] LABS: ALT (SGPT) 22 U/L (0-50); AST (SGOT) 24 U/L (17-59); Albumin 4.4 g/dl (3.5-5.0); Alkaline Phosphatase 136 U/L (38-126); Blood Urea Nitrogen 30 mg/dl (9-20); Calcium 10.3 mg/dl (8.4-10.2); Carbon Dioxide 29 mmol/L (22-30); Chloride 97 mmol/L (98-107); Glucose 206 mg/dl (70-99); Potassium 4.2 mmol/L (3.5-5.1); Sodium 139 mmol/L (135-145); Total Bilirubin 1.5 mg/dl (0.2-1.3); Total Protein 7.4 g/dl (6.3-8.2); eGFR 46.77
--- NOTE | 2024-03-01 15:24 | ED.GENMED ---
History of Present Illness
<Justine Dixon PA-C - Last Filed: 03/01/24 17:03>
General
Chief Complaint: Heart Rate Problem
Source: patient
Exam Limitations: none
Time Seen by Provider: 03/01/24 14:53
Nursing documentation reviewed up to this point in time: agreed with
History of Present Illness
History of Present Illness:
78-year-old male with a past medical history of A-fib on Eliquis, CHF, diabetes, presents emergency department today with concerns of increasing lower extremity swelling, weight gain shortness of breath for past 2 weeks. Patient reports that he had
a cardiology appointment today with Dr. Carias because of his ongoing symptoms. In office today, patient was noted to have heart rate in the 140s. Of note, Dr. Carias reports that patient had a cardioversion in January but his rapid A-fib recurs
and persists despite increasing his medical therapy. Patient denies chest pain, dizziness, lightheadedness, syncopal episodes fevers, chills, nausea, vomiting, abdominal pain. Patient reports that patient has had the symptoms on and off since he
was diagnosed with A-fib 2 months ago but the symptoms got an acutely worse the past 2 weeks.
Past History
<Justine Dixon PA-C - Last Filed: 03/01/24 17:03>
Past History
ED Past Medical History: Arrthythmia (A fib) and NIDDM
ED Past Surgical History: Tonsilectomy
Social History
Tobacco: Non-smoker
Alcohol: None
Personal:
Living: with family
Review of Systems
<Justine Dixon PA-C - Last Filed: 03/01/24 17:03>
Review of Systems
All Other Systems: ROS reviewed and negative except as documented in HPI and ROS
Phy Exam
<Justine Dixon PA-C - Last Filed: 03/01/24 17:03>
Physical Exam
Physical Exam:
General: Patient is well appearing and in no acute distress; non-toxic
Skin: Warm and dry, no rashes or lesions
Head: Normocephalic, atraumatic
Eyes: Sclera non-icteric. EOMs intact. PERRLA.
Cardiac: Heart rate tachycardic, irregularly irregular
Peripheral Vascular: Bilateral lower extremity pitting edema noted
Pulm: Normal respiratory effort, no wheezes, rales, rhonchi
Abdomen: No abdominal tenderness to palpation
Neuro: CN II-XII intact, no focal neurologic deficits.
Psychiatric: Appropriate mood and affect.
Course
<Justine Dixon PA-C - Last Filed: 03/01/24 17:03>
Orders/Labs/Results
Orders:
Orders
03/01/24 13:49
Electrocardiogram (*1) Urgent
Reason for Study: Atrial Fibrillation
EKG- Treatment ONCE
03/01/24 13:58
Complete Blood Count/With Diff Urgent
Comprehensive Metabolic Panel Urgent
NT-proBNP Urgent
Troponin I Urgent
Comment: ADD ON
03/01/24 15:04
Add On- LAB Urgent
Tests Added?: troponin
03/01/24 15:20
Diltiazem HCl [Cardizem] 5 mg IV NOW STA
CR Chest Portable - 1 View Urgent
Comment:
Reason For Exam: shortness of breath
Reason Study Needs to be Portable: Patient Unstable
03/01/24 15:24
Add On- LAB Urgent
Tests Added?: troponin
03/01/24 15:30
Diltiazem 125 mg/125 ml Nss [Cardizem] 125 mg in 125 ml IV PER PROTOCOL
Initial dose in mg/hr, then titrate:: 5
Titrate to keep:: Heart rate 80-100 bpm
Titrate by mg/hr:: 5 mg/hr
Frequency of titrations (minutes):: 15
Maximum dose in mg/hr:: 15
03/01/24 16:33
Furosemide [Lasix] 40 mg IV NOW STA
Abnormal Lab Results
03/01/24
13:58
MCHC 32.9 L g/dL
(33.0-37.0)
MPV 10.8 H fL
(7.4-10.4)
Absolute Lymphs (auto) 1.0 L 10^3/uL
(1.2-3.4)
Absolute Monos (auto) 0.9 H 10^3/uL
(0.1-0.6)
Lymphocytes % 12.0 L %
(20.5-51.1)
Monocytes % 10.5 H %
(1.7-9.3)
Chloride 97 L mmol/L
(98-107)
BUN 30 H mg/dl
(9-20)
Creatinine 1.5 H mg/dL
(0.7-1.3)
Glucose 206 H mg/dl
(70-99)
Calcium 10.3 H mg/dl
(8.4-10.2)
Total Bilirubin 1.5 H mg/dl
(0.2-1.3)
Alkaline Phosphatase 136 H U/L
(38-126)
03/01/24 13:58
03/01/24 13:58
Vital Signs
Initial and Last Documented VS:
Initial Vital Signs
Temp Pulse Resp BP Pulse Ox
98.2 F 142 18 162/111 93
03/01/24 13:46 03/01/24 13:46 03/01/24 13:46 03/01/24 13:46 03/01/24 13:46
Last Documented Vital Signs
Temp Pulse Resp BP Pulse Ox
98.2 F 116 24 118/97 92
03/01/24 13:46 03/01/24 16:30 03/01/24 16:30 03/01/24 16:28 03/01/24 16:30
<Yvon Anand, DO - Last Filed: 03/01/24 15:31>
Orders/Labs/Results
Orders:
Orders
03/01/24 13:49
Electrocardiogram (*1) Urgent
Reason for Study: Atrial Fibrillation
EKG- Treatment ONCE
03/01/24 13:58
Complete Blood Count/With Diff Urgent
Comprehensive Metabolic Panel Urgent
NT-proBNP Urgent
Troponin I Urgent
Comment: ADD ON
03/01/24 15:04
Add On- LAB Urgent
Tests Added?: troponin
03/01/24 15:20
Diltiazem HCl [Cardizem] 5 mg IV NOW STA
CR Chest Portable - 1 View Urgent
Comment:
Reason For Exam: shortness of breath
Reason Study Needs to be Portable: Patient Unstable
03/01/24 15:24
Add On- LAB Urgent
Tests Added?: troponin
03/01/24 15:30
Diltiazem 125 mg/125 ml Nss [Cardizem] 125 mg in 125 ml IV PER PROTOCOL
Initial dose in mg/hr, then titrate:: 5
Titrate to keep:: Heart rate 80-100 bpm
Titrate by mg/hr:: 5 mg/hr
Frequency of titrations (minutes):: 15
Maximum dose in mg/hr:: 15
03/01/24 16:33
Furosemide [Lasix] 40 mg IV NOW STA
Abnormal Lab Results
03/01/24
13:58
MCHC 32.9 L g/dL
(33.0-37.0)
MPV 10.8 H fL
(7.4-10.4)
Absolute Lymphs (auto) 1.0 L 10^3/uL
(1.2-3.4)
Absolute Monos (auto) 0.9 H 10^3/uL
(0.1-0.6)
Lymphocytes % 12.0 L %
(20.5-51.1)
Monocytes % 10.5 H %
(1.7-9.3)
Chloride 97 L mmol/L
(98-107)
BUN 30 H mg/dl
(9-20)
Creatinine 1.5 H mg/dL
(0.7-1.3)
Glucose 206 H mg/dl
(70-99)
Calcium 10.3 H mg/dl
(8.4-10.2)
Total Bilirubin 1.5 H mg/dl
(0.2-1.3)
Alkaline Phosphatase 136 H U/L
(38-126)
03/01/24 13:58
03/01/24 13:58
Vital Signs
Initial and Last Documented VS:
Initial Vital Signs
Temp Pulse Resp BP Pulse Ox
98.2 F 142 18 162/111 93
03/01/24 13:46 03/01/24 13:46 03/01/24 13:46 03/01/24 13:46 03/01/24 13:46
Last Documented Vital Signs
Temp Pulse Resp BP Pulse Ox
98.2 F 116 24 118/97 92
03/01/24 13:46 03/01/24 16:30 03/01/24 16:30 03/01/24 16:28 03/01/24 16:30
Betolt;Justine Dixon PA-C - Last Filed: 03/01/24 17:03>
MDM/Problems Addressed
Differential Diagnosis Includes:
Differential include rapid A-fib, CHF exacerbation, pneumonia, PE, pneumothorax
MDM/Problems Addressed:
78-year-old male with past medical history of A-fib on Eliquis, CHF presents emergency department today with concerns of increased shortness of breath, and lower extremity edema over the past [address] Seaman office today who sent
him for the ER for further evaluation and admission to hospital considering his increasing symptoms despite increasing medical therapy as well as current rapid A-fib and low or pulse ox at home. Patient was started on a Cardizem drip and given 40
mg of Lasix through the IV. Chest x-ray performed shows some increased interstitial edema but no obvious pneumothorax, no pleural effusion. Patient referred for mission by hospitalist..
<Justine Dixon PA-C - Last Filed: 03/01/24 17:03>
*Radiology
Radiology exam reviewed: preliminary read by ED provider (no pneumothorax, no pleural effusion)
*Pulse Oximetry
Patient hypoxic: no
*EKG
Interpreted by ED Provider?: Yes
EKG Intrepretation Date: 03/01/24
Interpretation: abnormal
Comparison EKG: changes noted
Heart Rate: 141
Rate: tachycardiac
Rhythm: a-fib
Sherwood: normal axis
*Carbonation Tester Interpretation
Rate: tachycardiac
Heart Rate: 110
Rhythm: a-fib
*Critical Care Note
Total Time (30-74mins, 75-104mins- exclusive of procedures): Not Applicable
Data Reviewed
Review of Other/Old Records Reveals: Records (This reviewed recent discharge summary from 01/31/2024, patient admitted and had FELISHA guided cardioversion, reviewed previous echo from 01/30/2024)
Source: patient and records
Prescriptions/Medications Considered But Not Given:
n/a
Further Testing Considered But Not Given:
n/a
<Justine Dixon PA-C - Last Filed: 03/01/24 17:03>
Patient Management
Escalation/DeEscalation of care consider admission/obs:
Admit indicated
ED Attending Note
<Justine Dixon PA-C - Last Filed: 03/01/24 17:03>
-
Portions of this chart may have been created with voice recognition software.� Occasional wrong word or��sound alike� substitutions may have occurred due to the inherent limitations of voice recognition software.
<Yvon Anand DO - Last Filed: 03/01/24 15:31>
ED Attending Note
Patient seen and examined by attending physician: Yes
I performed a history and physical exam of patient and discussed management with resident, I reviewed resident's note and agree with documented findings and plan of care.: Yes
ED Attending Note:
I have reviewed and agree with history plan by Justine Dixon. My exam revealed 78-year-old male
Physical Exam
General: Afebrile, BP 119/80
Neck: supple. no meningeal signs. normal posterior pharynx
Heart: s1/s2 tachycardia, irregular rhythm, no murmur. equal radial
pulses.
HEENT: Pupils equal round reactive to light, EOMI
Lungs: no acute respiratory distress. clear bilaterally
Abdomen: normal bowel sounds. not tender. no CVAT
Neuro: alert and oriented. no focal neurological deficits cranial nerves II through XII intact
Skin: no rash
Psychiatric: well kept. interactive and cooperative
Extremities: Bilateral tibial edema. no calf tenderness. negative homans. good distal pulses
Discharge Plan
Departure
Patient Disposition: Admit
Date of Disposition: 03/01/24
Time of Disposition: 16:44
Admit to: IMU
Presentation/result/management discussed w/ accepting MD/DO: Hospitalist
Patient with high blood pressure during this ER visit?: Yes
Condition: Fair
Discharge Problem:
Atrial fibrillation with rapid ventricular response, CHF (congestive heart failure)
Prescriptions:
No Action
metoprolol succinate 25 mg Tablet Extended Release 24 Hr
25 mg PO DAILY
benazepril 40 mg Tablet
40 mg PO DAILY
Eliquis 5 mg Tablet
5 mg PO BID
famotidine [Pepcid AC Maximum Strength] 20 mg Tablet
20 mg PO DAILY
simvastatin 5 mg Tablet
5 mg PO HS
aspirin 81 mg Tablet,Delayed Release (Dr/Ec)
81 mg PO DAILY
tramadol 50 mg Tablet
50 mg PO TID
furosemide 40 mg Tablet
40 mg PO DAILY Qty: 30 0RF
Referrals:
Yvon Feng MD [Family Provider] -
Interventions
Interventions:
*Risk Screen - Suicide Last Done: 03/01/24 13:46
*General Assessment Last Done: 03/01/24 13:46
*Neglect/Abuse Screening Last Done: 03/01/24 13:46
ED- Fall Risk Assessment Last Done: 03/01/24 15:13
*ED COVID-19 Vaccine History Last Done: 03/01/24 13:46
ED- Cardiac Assessment Last Done: 03/01/24 15:13
ED- Pulmonary Assessment Last Done: 03/01/24 15:13
Discharge Date and Time
Print Language: MALDIVIAN
[2024-03-01] MEDS: CARDIZEM 5 MG IV (15:33)
[2024-03-01] MEDS: CARDIZEM 125 IV (15:34)
[2024-03-01 16:17] LABS: Troponin I < 0.012 ng/ml
[2024-03-01] MEDS: LASIX 40 MG IV (17:14)
--- NOTE | 2024-03-01 18:00 | HPS.HSE ---
Family Physician
-
Family Physician: Yvon Feng
Chief Complaint
-
Shortness of breath; palpitations
History of Present Illness
Otilio Claros, age 78, has been experiencing intermittent palpitations, weight gain, worsening shortness of breath and bilateral lower extremity edema for the past few days. He went to Dr. Carias's office today and was recommended to go to the "[facility]. He was found to be in atrial fibrillation with rapid ventricular response and acute on chronic heart failure with preserved ejection fraction. He was recently admitted in January 2024 with new-onset heart failure after being diagnosed with
atrial fibrillation in December 2023. During that admission, he was successfully cardioverted, however the patient states that he likely went into atrial fibrillation again a couple of days after discharge.
Medical History
Past Medical History
Past Medical History: Reports Other (Atrial Fibrillation; Essential Hypertension; Hyperlipidemia; CKD Stage IIIA; history of type II DM)
Past Surgical History: Reports Other (Tonsillectomy; Pilonidal Cyst)
Social History
Tobacco: Former Smoker (Quit about 25 years ago)
Alcohol: Daily (Patient 1-2 scotches per night)
Drug: None
Personal:
Living: With Family
Employment: Retired
Family History
Family History: Not pertinent
Allergies / Home Medications
Allergies reflects when Allergies were last updated in [facility].
Home Medications with original date entered in [facility]
Allergy/Medication List:
Allergies
Allergy/AdvReac Type Severity Reaction Status Date / Time
No Known Drug Allergies Allergy Unknown Verified 03/01/24 13:47
Home Medications
apixaban 5 mg tablet (Eliquis) 5 mg PO BID Blood Clot Prevention/Tx 01/28/24
aspirin 81 mg tablet,delayed release 81 mg PO DAILY Blood Clot Prevention/Tx 01/28/24
simvastatin 5 mg tablet 5 mg PO HS High Cholesterol 01/28/24
tramadol 50 mg tablet 50 mg PO TID Pain 01/28/24
furosemide 40 mg tablet 40 mg PO DAILY #30 tabs 01/30/24
benazepril 20 mg tablet 20 mg PO DAILY 03/01/24
magnesium oxide 400 mg PO DAILY 03/01/24
metoprolol succinate 50 mg tablet,extended release 24 hr 50 mg PO BID 03/01/24
omeprazole 20 mg capsule,delayed release 20 mg PO DAILY 03/01/24
polyethylene glycol 3350 17 gram oral powder packet (Miralax) 17 g PO Q48H 03/01/24
Review of Systems
-
Constitutional: Reports No Symptoms
EENT: Reports No Symptoms
Respiratory: Reports Trouble Breathing
Cardiac: Reports Palpitations
Abdomen/GI: Reports No Symptoms
: Reports No Symptoms
Musculoskeletal: Reports No Symptoms
Skin: Reports No Symptoms
Neurological: Reports No Symptoms
Endocrine: Reports No Symptoms
Hematologic/Lymphatic: Reports No Symptoms
Psych: Reports No Symptoms
Physical Exam
Vital Signs
Vital Signs
Temp Pulse Resp BP Pulse Ox
98.2 F 119 24 109/86 94
03/01/24 13:46 03/01/24 17:45 03/01/24 17:45 03/01/24 17:14 03/01/24 17:30
Physical Exam
General: No Apparent Distress and Comfortable
HEENT: NormoCephalic, Anicteric, Moist mucous membranes, Atraumatic and No Ptosis
Respiratory: Crackles (bilateral bases)
Cardiac: S1/S2, Irregular Rhythm and Tachycardia
GI: Soft, Non Tender, Non Distended and No Hepatosplenomegaly
Genito-urinary: No costovertebral tender
Musculoskeletal: No Clubbing, No Cyanosis, Edema, Left Lower Extremity (2+) and Edema, Right Lower Extremity (2+)
Skin: Warm, Dry and IV/Catheter Site
Neuro: Awake, Alert, Oriented and No Motor Deficits
Hematologic/Lymphatic: No Lymphadenopathy
Psych: Calm and Intact Judgment/Insight
Laboratory Results
-
03/01/24 13:58
03/01/24 13:58
Laboratory Results
Total Bilirubin 1.5 mg/dl (0.2-1.3) H 03/01/24 13:58
AST 24 U/L (17-59) 03/01/24 13:58
ALT 22 U/L (0-50) 03/01/24 13:58
Alkaline Phosphatase 136 U/L (38-126) H 03/01/24 13:58
Troponin I < 0.012 ng/ml 03/01/24 13:58
Impression/Plan
-
Impression and plan
Atrial fibrillation with rapid ventricular response
- Cardioverted during the previous admission; reportedly went back into atrial fibrillation a couple of days later.
- Admit to IVU.
- Diltiazem drip and continue metoprolol.
- Continue apixaban.
- Cardiology consultation.
Acute on chronic heart failure with preserved ejection fraction
- pro-BNP 3330 this admission (up from 2420 last month).
- Echocardiogram in January 2024 with LVEF of 50-55%.
- IV furosemide 40 mg BID.
- Monitor daily weights, I&Os, fluid and sodium restrictions.
- Follow BMP and Mg.
Essential hypertension
- Continue benazepril and metoprolol.
Hyperlipidemia
- Continue simvastatin.
Chronic kidney disease, stage IIIa
- Follow BMP.
Diet-controlled type II diabetes mellitus
- A1c of 6.8 in January 2024.
- Cover with SSI.
Chronic constipation
- Continue polyethylene glycol.
Thromboprophylaxis
- Apixaban.
Code status
- Full.
--- NOTE | 2024-03-01 18:08 | W.PN.UPDATE ---
Update Note
Progress Note Update
Seen and examined by me independently in collaboration with the medical student Kalin.
Past medical history/social history/medication/allergies reviewed.
Lab data and imaging data reviewed.
78-year-old with a recent diagnosis of atrial fibrillation and episode of heart failure presents back with uncontrolled atrial fibrillation with another episode of acute heart failure. Known to have normal EF. Failed electrical cardioversion.
Currently on beta-conchis for rate control and Eliquis for stroke prophylaxis.
Admit to IVU. Start on IV Cardizem drip and titrate as needed for heart rate control. Start on IV Lasix and follow response and weights.
Consult cardiology for further management. Might need to consider anti arrhythmic agents.
Full code.
[2024-03-01] MEDS: LIPITOR 10 MG PO (20:33)
[2024-03-01] MEDS: ULTRAM 50 MG PO (20:34)
[2024-03-01] MEDS: TOPROL XL 50 MG PO (20:34)
[2024-03-01] MEDS: ELIQUIS 2.5 MG PO (20:51)
[2024-03-01 21:23] LABS: Troponin I < 0.012 ng/ml
[2024-03-01 23:07] LABS: Glucose - Point of Care 194 mg/dl (70-99)
[2024-03-02] VITALS (10 sets, daily range): BP systolic 104–156; BP diastolic 74–115; PULSE 91; O2SAT 94; BMI 33.9
--- NOTE | 2024-03-02 01:48 | PTCARENOTE ---
Pt admitted to room 2245. AAOx3. Afib with HR 110-130 on Cardizem gtt. Pt ambulates independently in the room. Oriented to room, call poon in reach
[2024-03-02] MEDS: TYLENOL 650 MG PO ×3 (02:27→23:20)
[2024-03-02] MEDS: CARDIZEM 125 IV (02:41)
[2024-03-02 02:56] LABS: Hematocrit 43.3 % (39.0-52.0); Hemoglobin 14.9 g/dL (13.0-18.0); Mean Corp Hgb Conc. 34.4 g/dL (33.0-37.0); Mean Corpuscular Volume 87.1 fL (80.0-94.0); Mean Platelet Volume 10.9 fL (7.4-10.4); Platelet Count 162 10^3/uL (130-400); Red Blood Cell Count 4.97 10^6/uL (4.70-6.10); Red Cell Dist. Width 13.4 % (11.5-14.5); White Blood Cell Count 8.4 10^3/uL (4.8-10.8)
[2024-03-02 03:34] LABS: Troponin I < 0.012 ng/ml
[2024-03-02] MEDS: BenGay-Like 1 APPLIC TOPICAL (05:42)
[2024-03-02 07:19] LABS: Glucose - Point of Care 174 mg/dl (70-99)
--- NOTE | 2024-03-02 08:02 | W.PN.HOSP.TC ---
Addendum entered and electronically signed by Fady Jones MD 03/02/24 15:28:
Seen and examined by me independently in collaboration with the biomedical equipment technician Kalin.
Lab data and imaging data reviewed.
Addendum as below :
Patient says he is feeling improved. Denies shortness of breath at rest or palpitations. No chest pain.
Afebrile. Hemodynamically stable. Heart rate in low 100s and in A-fib. Stable on room air.
Chest bilateral basilar crackles. No wheeze.
Bilateral lower extremity edema noted.
Acute on chronic heart failure with preserved EF in the setting of rapid atrial fibrillation
Atrial fibrillation-failed prior electrical cardioversion.
Start on Tikosyn load per cardiology. Follow QTc.
Continue with current dose of Lasix and follow weights.
Original Note:
Today's Communication/Plan
-
* Continue dofetilide and metoprolol.
* Apixaban 2.5 mg.
* IV diuresis.
* Follow electrolytes, I&O and daily weights.
Assessment / Plan
Assessment / Plan
Assessment
Otilio Claros, age 78, has been experiencing intermittent palpitations, weight gain, worsening shortness of breath and bilateral lower extremity edema for the past few days. He went to Dr. Carias's office today and was recommended to go to the "[facility]. He was found to be in atrial fibrillation with rapid ventricular response and acute on chronic heart failure with preserved ejection fraction. He was recently admitted in January 2024 with new-onset heart failure after being diagnosed with
atrial fibrillation in December 2023. During that admission, he was successfully cardioverted, however the patient states that he likely went into atrial fibrillation again a couple of days after discharge.
Impression and plan
Atrial fibrillation with rapid ventricular response
- Cardioverted during the previous admission; reportedly went back into atrial fibrillation a couple of days later.
- Admit to IVU.
- Status-post diltiazem drip.
- Start dofetilide and continue metoprolol.
- Continue apixaban 2.5 mg (age 78; serum creatinine 1.5).
- Cardiology consultation.
Acute on chronic heart failure with preserved ejection fraction
- pro-BNP 3330 this admission (up from 2420 last month).
- Echocardiogram in January 2024 with LVEF of 50-55%.
- IV furosemide 40 mg BID.
- Monitor daily weights, I&Os, fluid and sodium restrictions.
- Follow BMP and Mg.
Essential hypertension
- Continue benazepril and metoprolol.
Hyperlipidemia
- Continue simvastatin.
Chronic kidney disease, stage IIIa
- Follow BMP.
Diet-controlled type II diabetes mellitus
- A1c of 6.8 in January 2024.
- Cover with SSI.
Chronic constipation
- Continue polyethylene glycol.
Thromboprophylaxis
- Apixaban.
Code status
- Full.
Anticipated Discharge: 24 - 48 hours
Subjective/Interval History
-
Date of Service: March 02, 2024
Feeling better after diuresis and starting dofetilide.
Objective Data
-
Labs:
Laboratory Results
03/02/24 03/02/24
02:33 07:41
WBC 8.4
Hgb 14.9
Hct 43.3
Plt Count 162
Sodium Pending
Potassium Pending
Chloride Pending
Carbon Dioxide Pending
BUN Pending
Creatinine Pending
Glucose Pending
Calcium Pending
Vital Signs:
Vital Signs
Temp Pulse Resp BP Pulse Ox
98.7 F 96 20 109/77 93
03/02/24 07:10 03/02/24 07:30 03/02/24 07:10 03/02/24 07:12 03/02/24 07:10
I&O
03/01/24 03/02/24 03/03/24
06:59 06:59 06:59
Intake Total 360 / 360
Output Total 600 / 600
Balance -240 / -240
Review of Systems
-
History Source: Patient
Constitutional: Reports No Symptoms
EENT: Reports No Symptoms Reported
Respiratory: Reports Trouble Breathing (improved)
Cardiac: Reports No Symptoms
Abdomen/GI: Reports No Symptoms
Genitourinary: Reports No Symptoms
Musculoskeletal: Reports No Symptoms
Skin: Reports No Symptoms
Neuro: Reports No Symptoms
Endocrine: Reports No Symptoms
Hematologic / Lymphatic: Reports No Symptoms
Allergy / Immunology: Reports No Symptoms
Physical Exam
-
General: No Apparent Distress and Comfortable
HEENT: Normocephalic, Atraumatic, Moist Mucous Membranes, Anicteric and No Ptosis
Respiratory: Crackles (bilateral bases, improved)
Cardiac: S1/S2, Irregular Rhythm and Tachycardic
GI: Soft, Nontender and Nondistended
Genito-urinary: No Costovertebral Tender
Musculoskeletal: No Clubbing, No Cyanosis, Edema, Right Lower Extrem (1+) and Edema, Left Lower Extrem (1+)
Skin: Warm, Dry and IV Access / Catheter Site
Neuro: Awake, Alert, Oriented and No Motor Deficits
Hematologic / Lymphatic: No Lymphadenopathy
Psych: Calm and Intact Judgement/Insight
--- NOTE | 2024-03-02 08:05 | W.PN.CD ---
Addendum entered and electronically signed by Javed Rebollar MD 03/02/24 12:14:
I saw and examined the patient.
The SALES REPRESENTATIVE [employer]'s note was reviewed and I agree with the note.
Comment: will start tikosyn 250 mcg q12hr
Original Note:
Today's Communication / Plan
-
continue diuresis and Toprol.
Eliquis dose reduced to 2.5mg due to age and creatinine 1.5.
discussed anti-arrhythmic meds with EP cardiology and will initiate Tikosyn 250mcg Q12h.
Impression / Plan
-
See full cardiology consult scanned into his chart.
Technical Services Analyst: Dr. Carias
Afib - rapid ventricular response.
- rates 140s and now improved with IV Cardizem.
- failed FELISHA/cardioversion 01/30/24.
- Eliquis now 2.5mg BID due to age and creatinine 1.5.
- discussed with EP cardiology and recommend initiating Tikosyn 250mcg Q12h.
- has outpatient appointment (03/14/24) with EP cardiology to discuss possible PVI.
- continue Toprol 50mg BID.
- FELISHA 01/30/24: EF 50-55%, mildly dilated RV with mildly reduced function, JESUS, severe TR, no NHI thrombus, small PFO present.
HFpEF - acute on chronic.
- agree with IV Lasix and monitor renal function/electrolytes.
- FELISHA as above.
- CXR with mild interstitial cardiogenic pulmonary edema, moderate cardiomegaly, mild left to right mediastinal shift which appears chronic and unchanged.
Tricuspid regurgitation - severe on recent FELISHA.
- diuresis as above.
HTN - stable on Toprol.
- monitor with IV Cardizem.
Physical Exam
Vital Signs/Labs
Vital Signs
Temp Pulse Resp BP Pulse Ox
98.7 F 96 20 109/77 93
03/02/24 07:10 03/02/24 07:30 03/02/24 07:10 03/02/24 07:12 03/02/24 07:10
03/01/24 03/02/24 03/03/24
06:59 06:59 06:59
Actual Weight 216 lb 4.375 oz
03/02/24 02:33
Magnesium 2.0 mg/dl (1.6-2.3) 03/02/24 02:33
03/01/24
13:58
Mtv-X-[id number] Pept 3330
LAB Results
03/01/24 03/01/24 03/02/24
13:58 20:47 02:33
Troponin I < 0.012 < 0.012 < 0.012
03/02/24
07:40
Troponin I Cancelled
Physical Exam
Constitutional: No acute distress and Comfortable
EENT: Anicteric and Moist mucous membranes
Cardiovascular: Rhythm/rate is irregular and Pedal edema present (mild b/l LE)
Respiratory: Respiratory effort normal and Lungs clear to auscul.
GI: Soft, Non tender and Normal bowel sounds
Neuro/Psych: AO x 3
Other: Skin (warm, dry)
Data Reviewed
-
Date of Service: March 02, 2024
Medical Decision Making: External Notes and Reviewed Test Results
EKG: Tracing Personally Visualized and interpreted (afib with RVR 141 bpm)
X-Ray/CT/US/MRI/NUC/PET: Report Reviewed by me (CXR)
Labs: Labs Reviewed by me
Old Records: Reviewed
[2024-03-02] MEDS: NOVOLOG FLEXPEN-LOW RESISTANCE 1 UNITS SC ×3 (08:26→16:19)
[2024-03-02] MEDS: MIRALAX 17 GRAMS PO (08:33)
[2024-03-02] MEDS: ASPIR LOW (ENTERIC COATED) 81 MG PO (08:34)
[2024-03-02] MEDS: PROTONIX 40 MG PO (08:34)
[2024-03-02] MEDS: ULTRAM 50 MG PO ×3 (08:34→21:05)
[2024-03-02] MEDS: ELIQUIS 2.5 MG PO ×2 (08:35→21:05)
[2024-03-02] MEDS: MAG-TAB SR 84 MG PO (08:35)
[2024-03-02] MEDS: TOPROL XL 50 MG PO ×2 (08:35→21:04)
[2024-03-02] MEDS: LASIX 40 MG IV ×2 (08:36→16:14)
--- NOTE | 2024-03-02 08:48 | W.CARD.TIKOS ---
Initiate Tikosyn
-
I verify that the patient has not taken any verapamil (Isoptin/Calan), ketoconazole (Nizoral), cimetidine (Tagamet), trimethoprim (Trimpex), trimethoprim/sulfamethoxazole (Bactrim), megesterol (Megace), prochlorperazine (Compazine),
hydrochlorothiazide (HCTZ), dolutegravir (Tivicay) or any Class I or Class III anti-arrhythmic within the last three days
AND
I verify that the patient has not taken amiodarone within the last THREE months, or that the patient's amiodarone plasma concentration is <0.3 mcg/mL.
Creatinine 1.5 mg/dL (0.7-1.3) H 03/01/24 13:58
Does patient have a Ventricular Conduction Abnormality: No
I have assessed the baseline QTc interval (using QT for heart rate less than 60 bpm) and deemed the patient is appropriate for Dofetilide therapy. I understand that Tikosyn is contraindicated if the QTc is >440msec (500msec in patients with
ventricular conduction abnormalities).
Baseline QTc (in msec): 398
QTc interval is greater than 440msec without conduction abnormality OR greater than 500msec with a conduction abnormality, but acceptable to proceed per Cardiology attending.
Ordering Physician: Javed Rebollar
[2024-03-02 09:06] LABS: Blood Urea Nitrogen 28 mg/dl (9-20); Calcium 10.1 mg/dl (8.4-10.2); Carbon Dioxide 27 mmol/L (22-30); Chloride 101 mmol/L (98-107); Estimated Creatinine Clearance 47 ml/min; Glucose 174 mg/dl (70-99); Potassium 3.9 mmol/L (3.5-5.1); Sodium 141 mmol/L (135-145); eGFR 50.81
--- NOTE | 2024-03-02 09:24 | PTCARENOTE ---
Assumed care of pt from night RN. Pt received awake and alert, Ox3. VSS, CM shows AF 100's, Cardizem presently running at 10 mg/hr. POX 93-95% on RA. Pt will be starting Tikosyn per Cards, initial EKG shows QT/QTC as 278/358. Chemistry drawn as
ordered, results unremarkable. Tylenol 650 mg given as per JUN for H/A.
[2024-03-02] MEDS: TIKOSYN 250 MCG PO ×2 (09:52→21:05)
--- NOTE | 2024-03-02 10:24 | PTOTSP ---
pt currently demonstrates ability to complete simple ADLs, functional transfers, ambulation with supervision to no assistance. pt reports he does get short of breath with activity, is able to sit and rest to recover. no acute OT needs identified at
this time, will sign off.
--- NOTE | 2024-03-02 11:46 | CM ---
Chart reviewed. Patient is independent of ADLS, lives with his in a 4 [address], elevator inside, 4 JONAS, 0 DME. Plan is for the patient to return home. CM to follow
--- NOTE | 2024-03-02 11:47 | CM ---
Pricing on Dofetilide 250 mcq BID for 30 days through the patient's [facility], ID#[id number], is $35 a month.
Patient's [facility] does not have it in stock. They will be able to get it in 24 hours. Patient will need a 3 day supply to go. Reminder placed in the patient' red discharge folder.
[2024-03-02 12:15] LABS: Glucose - Point of Care 192 mg/dl (70-99)
[2024-03-02 16:19] LABS: Glucose - Point of Care 194 mg/dl (70-99)
[2024-03-02] MEDS: LIPITOR 10 MG PO (21:05)
--- NOTE | 2024-03-03 03:19 | PTCARENOTE ---
QTC #2 read 517.
[2024-03-03 05:01] VITALS: BP 107/75
[2024-03-03 05:15] LABS: Hematocrit 44.9 % (39.0-52.0); Hemoglobin 14.6 g/dL (13.0-18.0); Mean Corp Hgb Conc. 32.5 g/dL (33.0-37.0); Mean Corpuscular Hgb 29.7 pg (27.0-31.0); Mean Corpuscular Volume 91.3 fL (80.0-94.0); Mean Platelet Volume 10.6 fL (7.4-10.4); Platelet Count 138 10^3/uL (130-400); Red Blood Cell Count 4.92 10^6/uL (4.70-6.10); Red Cell Dist. Width 13.4 % (11.5-14.5); White Blood Cell Count 5.7 10^3/uL (4.8-10.8)
[2024-03-03 05:38] LABS: Blood Urea Nitrogen 36 mg/dl (9-20); Carbon Dioxide 28 mmol/L (22-30); Chloride 100 mmol/L (98-107); Estimated Creatinine Clearance 47 ml/min; Glucose 189 mg/dl (70-99); Potassium 3.7 mmol/L (3.5-5.1); Sodium 140 mmol/L (135-145); eGFR 50.81
[2024-03-03 06:00] VITALS: BMI 34.3
[2024-03-03 07:17] LABS: Glucose - Point of Care 142 mg/dl (70-99)
[2024-03-03 07:59] VITALS: BP 116/74
[2024-03-03] MEDS: NOVOLOG FLEXPEN-LOW RESISTANCE SC ×2 (08:00→12:20)
[2024-03-03] MEDS: ULTRAM 50 MG PO ×3 (08:04→21:01)
[2024-03-03] MEDS: PROTONIX 40 MG PO (08:04)
[2024-03-03] MEDS: ELIQUIS 2.5 MG PO ×2 (08:04→19:37)
[2024-03-03] MEDS: TOPROL XL 50 MG PO ×2 (08:04→19:37)
[2024-03-03] MEDS: ASPIR LOW (ENTERIC COATED) 81 MG PO (08:04)
[2024-03-03] MEDS: MAG-TAB SR 84 MG PO (08:05)
[2024-03-03] MEDS: LASIX 40 MG IV (08:05)
--- NOTE | 2024-03-03 08:58 | PTCARENOTE ---
Assumed care of pt from night RN. Pt received awake and alert, Ox3. VSS, CM shows SB 60's, POX 97% on RA. Tikosyn dose #3 decreased to 125 mg this am. He denies any pain or discomfort, ambulating in room freely.
[2024-03-03] MEDS: TIKOSYN 125 MCG PO ×2 (09:04→09:34)
[2024-03-03 09:26] LABS: Iron 50 ug/dl (49-181)
--- NOTE | 2024-03-03 09:30 | PTCARENOTE ---
Tikosyn dose increased to 250 mcg, so an addition 125 mcg was given as per JUN. Repeat EKG showed QTc of 508.
[2024-03-03 09:36] LABS: Percent Saturation 13 % (20-50); Total Iron Binding Capacity 358 ug/dl (261-462)
--- NOTE | 2024-03-03 09:36 | W.PN.CD ---
Today's Communication / Plan
-
Cont dofetilide 250 mcg bid
K > 4 Mag > 2
Impression / Plan
-
See full cardiology consult scanned into his chart.
Media Relations Intern: Dr. Carias
Afib - rapid ventricular response.
- NOW is SR after dofetilide
- failed FELISHA/cardioversion 01/30/24.
- Eliquis now 2.5mg BID due to age and creatinine 1.5.
- Cont tikosyn 250 mcg bid with ECG thereafter, if QTc remains > 500 after today will stop and switch to amio
- has outpatient appointment (03/14/24) with EP cardiology to discuss possible PVI.
- continue Toprol 50mg BID.
- FELISHA 01/30/24: EF 50-55%, mildly dilated RV with mildly reduced function, JESUS, severe TR, no NHI thrombus, small PFO present.
HFpEF - acute on chronic.
- agree with IV Lasix daily today
- ensure K > 4 and Mag > 2
- FELISHA as above.
- CXR with mild interstitial cardiogenic pulmonary edema, moderate cardiomegaly, mild left to right mediastinal shift which appears chronic and unchanged.
Tricuspid regurgitation - severe on recent FELISHA.
- diuresis as above.
HTN - stable on Toprol.
- monitor with IV Cardizem.
Subjective: feels better today back in SR
Physical Exam
Vital Signs/Labs
Vital Signs
Temp Pulse Resp BP Pulse Ox
98.5 F 64 16 116/74 97
03/03/24 07:58 03/03/24 08:00 03/03/24 07:58 03/03/24 07:59 03/03/24 08:53
03/02/24 03/03/24 03/04/24
06:59 06:59 06:59
Actual Weight 216 lb 4.375 oz 218 lb 14.704 oz
03/03/24 05:05
03/03/24 05:05
Magnesium 2.0 mg/dl (1.6-2.3) 03/02/24 02:33
03/01/24
13:58
Yup-J-Orlygybhbvs Pept 3330
LAB Results
03/01/24 03/01/24 03/02/24
13:58 20:47 02:33
Troponin I < 0.012 < 0.012 < 0.012
03/02/24
07:40
Troponin I Cancelled
Physical Exam
Constitutional: No acute distress and Comfortable
Cardiovascular: Rhythm & rate is regular and Pedal edema is absent
Respiratory: Respiratory effort normal and Lungs clear to auscul.
GI: Soft
Neuro/Psych: Alert and Oriented
Data Reviewed
-
Date of Service: March 03, 2024
EKG: Tracing Personally Visualized and interpreted (sr)
Echo: Report Reviewed by me
Labs: Labs Reviewed by me
[2024-03-03 11:28] VITALS: BP 126/84
[2024-03-03 11:38] LABS: Ferritin 26.8 ng/ml (17.9-464.0)
[2024-03-03 12:16] LABS: Glucose - Point of Care 136 mg/dl (70-99)
--- NOTE | 2024-03-03 13:26 | W.PN.HOSP.TC ---
Addendum entered and electronically signed by Fady Jones MD 03/03/24 16:13:
Seen and examined by me independently in collaboration with the medical education specialist Kalin.
Lab data and imaging data reviewed.
Addendum as below :
He subjectively feels better on Tikosyn. He is in sinus rhythm now. QTc being closely monitored by medical examiner. It is slightly prolonged.
Patient denies shortness of breath but still has persistent basal crackles and weight has not moved much. Continue with IV Lasix.
With regards to intermittent restless legs optimize iron stores. Iron studies suggest deficiency; no anemia. Start on IV Iron and if still symptomatic , will consider pharmacotherapy.
Original Note:
Today's Communication/Plan
-
* Titrate dofetilide
* Continue metoprolol and apixaban 2.5 mg.
* IV diuresis and ferric gluconate.
* Follow electrolytes, I&O and daily weights.
Assessment / Plan
Assessment / Plan
Assessment
Otilio Claros, age 78, has been experiencing intermittent palpitations, weight gain, worsening shortness of breath and bilateral lower extremity edema for the past few days. He went to Dr. Carias's office today and was recommended to go to the "[facility]. He was found to be in atrial fibrillation with rapid ventricular response and acute on chronic heart failure with preserved ejection fraction. He was recently admitted in January 2024 with new-onset heart failure after being diagnosed with
atrial fibrillation in December 2023. During that admission, he was successfully cardioverted, however the patient states that he likely went into atrial fibrillation again a couple of days after discharge.
Impression and plan
Atrial fibrillation with rapid ventricular response
- In sinus rhythm after starting dofetilide.
- Status-post diltiazem drip.
- Continue metoprolol.
- Titrate dofetilide for goal QTc per cardiology.
- Continue apixaban 2.5 mg (age 78; serum creatinine 1.5).
- Cardiology following.
Acute on chronic heart failure with preserved ejection fraction
- pro-BNP 3330 this admission (up from 2420 last month).
- Echocardiogram in January 2024 with LVEF of 50-55%.
- IV furosemide 40 mg BID.
- Monitor daily weights, I&Os, fluid and sodium restrictions.
- Follow BMP and Mg.
Iron deficiency
- Low iron stores.
- IV ferric gluconate today and tomorrow.
Intermittent restless leg syndrome
- Not flaring up this admission.
- Can monitor response after iron transfusions to guide management outpatient.
Essential hypertension
- Continue benazepril and metoprolol.
Hyperlipidemia
- Continue simvastatin.
Chronic kidney disease, stage IIIa
- Follow BMP.
Diet-controlled type II diabetes mellitus
- A1c of 6.8 in January 2024.
- Cover with SSI.
Chronic constipation
- Continue polyethylene glycol.
Thromboprophylaxis
- Apixaban.
Code status
- Full.
Anticipated Discharge: 24 - 48 hours
Subjective/Interval History
-
Date of Service: March 03, 2024
Feeling much better after starting dofetilide.
Objective Data
-
Labs:
Laboratory Results
03/03/24
05:05
WBC 5.7
Hgb 14.6
Hct 44.9
Plt Count 138
Sodium 140
Potassium 3.7
Chloride 100
Carbon Dioxide 28
BUN 36 H
Creatinine 1.4 H
Glucose 189 H
Calcium 10.0
Vital Signs:
Vital Signs
Temp Pulse Resp BP Pulse Ox
98.0 F 62 18 126/84 98
03/03/24 11:27 03/03/24 11:28 03/03/24 11:27 03/03/24 11:28 03/03/24 11:27
I&O
03/02/24 03/03/24 03/04/24
06:59 06:59 06:59
Intake Total 360 / 360
Output Total 600 / 600 200 / 200
Balance -240 / -240 -200 / -200
Review of Systems
-
History Source: Patient
Constitutional: Reports No Symptoms
EENT: Reports No Symptoms Reported
Respiratory: Reports No Symptoms
Cardiac: Reports No Symptoms
Abdomen/GI: Reports No Symptoms
Genitourinary: Reports No Symptoms
Musculoskeletal: Reports No Symptoms
Skin: Reports No Symptoms
Neuro: Reports No Symptoms
Endocrine: Reports No Symptoms
Hematologic / Lymphatic: Reports No Symptoms
Allergy / Immunology: Reports No Symptoms
Physical Exam
-
General: No Apparent Distress and Comfortable
HEENT: Normocephalic, Atraumatic, Moist Mucous Membranes, Anicteric and No Ptosis
Respiratory: Crackles (bilateral basal, faint) and Non Labored Respirations
Cardiac: Regular Rhythm and S1/S2
GI: Soft, Nontender and Nondistended
Genito-urinary: No Costovertebral Tender
Musculoskeletal: No Clubbing, No Cyanosis, Edema, Right Lower Extrem (1+) and Edema, Left Lower Extrem (1+)
Skin: Warm, Dry and IV Access / Catheter Site
Neuro: Awake, Alert, Oriented and No Motor Deficits
Hematologic / Lymphatic: No Lymphadenopathy
Psych: Calm and Intact Judgement/Insight
--- NOTE | 2024-03-03 15:00 | PTCARENOTE ---
Assumed care of patient. VSS. Patient OOB to chair. Call light in reach. will continue to monitor.
[2024-03-03 15:39] VITALS: BP 131/82
[2024-03-03] MEDS: FERRLECIT 110 MG IV (16:10)
[2024-03-03 17:24] LABS: Glucose - Point of Care 153 mg/dl (70-99)
[2024-03-03] MEDS: NOVOLOG FLEXPEN-LOW RESISTANCE 1 UNITS SC (17:25)
[2024-03-03 19:28] VITALS: BP 132/87
[2024-03-03] MEDS: TIKOSYN 250 MCG PO (21:00)
[2024-03-03] MEDS: LIPITOR 10 MG PO (21:01)
[2024-03-03 21:05] LABS: Glucose - Point of Care 155 mg/dl (70-99)
[2024-03-03 22:55] VITALS: BP 145/97
--- NOTE | 2024-03-04 00:31 | PTCARENOTE ---
QTc following Tiksoyn dose # 4 498 ms. Pt. remains in NSR 50's-60's.
[2024-03-04 02:57] VITALS: BP 121/90
[2024-03-04 03:13] VITALS: BMI 33.6
[2024-03-04 03:50] LABS: Blood Urea Nitrogen 36 mg/dl (9-20); Calcium 9.5 mg/dl (8.4-10.2); Carbon Dioxide 27 mmol/L (22-30); Chloride 100 mmol/L (98-107); Estimated Creatinine Clearance 47 ml/min; Glucose 133 mg/dl (70-99); Potassium 3.9 mmol/L (3.5-5.1); Sodium 141 mmol/L (135-145); eGFR 50.81
[2024-03-04 06:59] VITALS: BP 150/95
[2024-03-04 07:02] LABS: Glucose - Point of Care 112 mg/dl (70-99)
[2024-03-04] MEDS: NOVOLOG FLEXPEN-LOW RESISTANCE SC ×2 (08:04→13:09)
[2024-03-04] MEDS: MAG-TAB SR 84 MG PO (08:05)
[2024-03-04] MEDS: PROTONIX 40 MG PO (08:05)
[2024-03-04] MEDS: ULTRAM 50 MG PO ×3 (08:05→22:26)
[2024-03-04] MEDS: TOPROL XL 50 MG PO ×2 (08:05→19:20)
[2024-03-04] MEDS: MIRALAX 17 GRAMS PO (08:05)
[2024-03-04] MEDS: ELIQUIS 2.5 MG PO ×2 (08:05→19:20)
[2024-03-04] MEDS: ASPIR LOW (ENTERIC COATED) 81 MG PO (08:05)
[2024-03-04] MEDS: LASIX 40 MG IV (08:06)
[2024-03-04] MEDS: FERRLECIT 110 MG IV (08:06)
--- NOTE | 2024-03-04 08:28 | W.PN.CD ---
Today's Communication / Plan
-
ECG later this am if QT still prolonged will switch to amio likely Tuesday
Impression / Plan
-
See full cardiology consult scanned into his chart.
Beater Head: Dr. Carias
Afib - rapid ventricular response.
- NOW is SR after dofetilide
- failed FELISHA/cardioversion 01/30/24.
- Eliquis now 5 mg BID due to age and creatinine 1.4
- Cont tikosyn 250 mcg bid with ECG thereafter, if QTc remains > 500 after today will stop and switch to amio
- has outpatient appointment (03/14/24) with EP cardiology to discuss possible PVI.
- continue Toprol 50mg BID.
- FELISHA 01/30/24: EF 50-55%, mildly dilated RV with mildly reduced function, JESUS, severe TR, no NHI thrombus, small PFO present.
HFpEF - acute on chronic.
- agree with IV Lasix daily
- ensure K > 4 and Mag > 2
- FELISHA as above.
- CXR with mild interstitial cardiogenic pulmonary edema, moderate cardiomegaly, mild left to right mediastinal shift which appears chronic and unchanged.
Tricuspid regurgitation - severe on recent FELISHA.
- diuresis as above.
HTN - stable on Toprol.
- monitor with IV Cardizem.
Subjective: Back in SR but QT is 498 and has had some ectopy on monitor if next ECG doesn't have improved QT will stop and switch to amio likely Tuesday
Physical Exam
Vital Signs/Labs
Vital Signs
Temp Pulse Resp BP Pulse Ox
97.7 F 64 20 150/95 95
03/04/24 06:59 03/04/24 06:59 03/04/24 06:59 03/04/24 06:59 03/04/24 08:00
03/03/24 03/04/24 03/05/24
06:59 06:59 06:59
Actual Weight 218 lb 14.704 oz 214 lb 8.156 oz
03/03/24 05:05
03/04/24 03:04
Magnesium 2.0 mg/dl (1.6-2.3) 03/02/24 02:33
03/01/24
13:58
Bqq-Y-Kwhwzygtxcd Pept 3330
LAB Results
03/01/24 03/01/24 03/02/24
13:58 20:47 02:33
Troponin I < 0.012 < 0.012 < 0.012
03/02/24
07:40
Troponin I Cancelled
Physical Exam
Constitutional: No acute distress and Comfortable
EENT: Anicteric
Cardiovascular: Rhythm & rate is regular and Pedal edema present (2+)
Respiratory: Respiratory effort normal and Lungs clear to auscul.
GI: Soft
Neuro/Psych: AO x 3
Data Reviewed
-
Date of Service: March 04, 2024
EKG: Tracing Personally Visualized and interpreted (sr)
Echo: Report Reviewed by me
Labs: Labs Reviewed by me
[2024-03-04] MEDS: TIKOSYN PO (10:10)
[2024-03-04 11:21] VITALS: BP 123/82
[2024-03-04 12:23] LABS: Glucose - Point of Care 119 mg/dl (70-99)
--- NOTE | 2024-03-04 13:26 | W.PN.HOSP.TC ---
Addendum entered and electronically signed by Fady Jones MD 03/04/24 13:59:
Seen and examined by me independently in collaboration with the medical educator Kalin.
Lab data and imaging data reviewed.
Addendum as below :
Patient remains in sinus rhythm and feels better. Denies shortness of breath and not on oxygen. Loss 4lbs of weight.
Normalized QTc ;Tikosyn dced yesterday.
Cardiology thinking about amiodarone.
DC home when stable from cardiology standpoint.
Original Note:
Today's Communication/Plan
-
* Discontinue dofetilide.
* Continue metoprolol and apixaban 2.5 mg.
* IV diuresis and ferric gluconate.
* Follow electrolytes, I&O and daily weights.
Assessment / Plan
Assessment / Plan
Assessment
Otilio Claros, age 78, has been experiencing intermittent palpitations, weight gain, worsening shortness of breath and bilateral lower extremity edema for the past few days. He went to Dr. Carias's office today and was recommended to go to the "[facility]. He was found to be in atrial fibrillation with rapid ventricular response and acute on chronic heart failure with preserved ejection fraction. He was recently admitted in January 2024 with new-onset heart failure after being diagnosed with
atrial fibrillation in December 2023. During that admission, he was successfully cardioverted, however the patient states that he likely went into atrial fibrillation again a couple of days after discharge.
Impression and plan
Atrial fibrillation with rapid ventricular response
- In sinus rhythm after starting dofetilide.
- Status-post diltiazem drip.
- Continue metoprolol.
- Discontinue dofetilide due to QTc prolongation per cardiology; amiodarone outpatient Tuesday.
- Continue apixaban 2.5 mg (age 78; serum creatinine 1.5).
- Cardiology following.
Acute on chronic heart failure with preserved ejection fraction
- pro-BNP 3330 this admission (up from 2420 last month).
- Echocardiogram in January 2024 with LVEF of 50-55%.
- IV furosemide 40 mg daily.
- Monitor daily weights, I&Os, fluid and sodium restrictions.
- Follow BMP and Mg.
Iron deficiency
- Low iron stores.
- IV ferric gluconate yesterday and today.
Intermittent restless leg syndrome
- Not flaring up this admission.
- Can monitor response after iron transfusions to guide management outpatient.
Essential hypertension
- Continue benazepril and metoprolol.
Hyperlipidemia
- Continue simvastatin.
Chronic kidney disease, stage IIIa
- Follow BMP.
Diet-controlled type II diabetes mellitus
- A1c of 6.8 in January 2024.
- Cover with SSI.
Chronic constipation
- Continue polyethylene glycol.
Thromboprophylaxis
- Apixaban.
Code status
- Full.
Anticipated Discharge: Within 24 hours
Subjective/Interval History
-
Date of Service: March 04, 2024
Stable overnight. Feeling fine.
Objective Data
-
Labs:
Laboratory Results
03/04/24
03:04
Sodium 141
Potassium 3.9
Chloride 100
Carbon Dioxide 27
BUN 36 H
Creatinine 1.4 H
Glucose 133 H
Calcium 9.5
Vital Signs:
Vital Signs
Temp Pulse Resp BP Pulse Ox
98.5 F 61 20 123/82 96
03/04/24 11:19 03/04/24 11:21 03/04/24 11:19 03/04/24 11:21 03/04/24 11:19
I&O
03/03/24 03/04/24 03/05/24
06:59 06:59 06:59
Intake Total 480 / 480
Output Total 1300 / 1300 1750 / 1750
Balance -820 / -820 -1750 / -1750
Review of Systems
-
History Source: Patient
Constitutional: Reports No Symptoms
EENT: Reports No Symptoms Reported
Respiratory: Reports No Symptoms
Cardiac: Reports No Symptoms
Abdomen/GI: Reports No Symptoms
Genitourinary: Reports No Symptoms
Musculoskeletal: Reports No Symptoms
Skin: Reports No Symptoms
Neuro: Reports No Symptoms
Endocrine: Reports No Symptoms
Hematologic / Lymphatic: Reports No Symptoms
Allergy / Immunology: Reports No Symptoms
Physical Exam
-
General: No Apparent Distress and Comfortable
HEENT: Normocephalic, Atraumatic, Moist Mucous Membranes, Anicteric and No Ptosis
Respiratory: Crackles (bilateral basal, faint) and Non Labored Respirations
Cardiac: Regular Rhythm and S1/S2
GI: Soft, Nontender and Nondistended
Genito-urinary: No Costovertebral Tender
Musculoskeletal: No Clubbing, No Cyanosis, Edema, Right Lower Extrem (1+) and Edema, Left Lower Extrem (1+)
Skin: Warm, Dry and IV Access / Catheter Site
Neuro: Awake, Alert, Oriented and No Motor Deficits
Hematologic / Lymphatic: No Lymphadenopathy
Psych: Calm and Intact Judgement/Insight
[2024-03-04 15:51] VITALS: BP 122/86
[2024-03-04] MEDS: ANTIFUNGAL CLEAR 1 APPLIC TOPICAL ×2 (16:48→19:21)
[2024-03-04 16:56] LABS: Glucose - Point of Care 187 mg/dl (70-99)
--- NOTE | 2024-03-04 17:19 | PTCARENOTE ---
Pt denies any discomfort. Telemetry shows sinus tika with rare PVC at a rate @60. Tikosyn discontinued per , last dose was on 03/03.
[2024-03-04] MEDS: NOVOLOG FLEXPEN-LOW RESISTANCE 1 UNITS SC (17:24)
[2024-03-04 19:16] VITALS: BP 123/75
[2024-03-04 22:24] LABS: Glucose - Point of Care 176 mg/dl (70-99)
[2024-03-04 22:25] VITALS: BP 128/93
[2024-03-04] MEDS: LIPITOR 10 MG PO (22:26)
--- NOTE | 2024-03-05 01:10 | PTCARENOTE ---
Pt. in NSR-SB with PVC's, rate 50's-60's, other vitals stable. No complaints of discomfort. Sleeping.
[2024-03-05 04:11] VITALS: BP 141/95
[2024-03-05 04:35] VITALS: BMI 33.1
[2024-03-05 04:54] LABS: Blood Urea Nitrogen 31 mg/dl (9-20); Calcium 9.8 mg/dl (8.4-10.2); Carbon Dioxide 29 mmol/L (22-30); Chloride 100 mmol/L (98-107); Estimated Creatinine Clearance 50 ml/min; Glucose 125 mg/dl (70-99); Potassium 4.2 mmol/L (3.5-5.1); Sodium 140 mmol/L (135-145); eGFR 55.53
[2024-03-05 07:06] VITALS: BP 147/84
[2024-03-05 07:09] LABS: Glucose - Point of Care 158 mg/dl (70-99)
--- NOTE | 2024-03-05 07:19 | W.PN.CD ---
Addendum entered and electronically signed by Radu Tatum MD 03/05/24 07:29:
Somehow he is on eliquis 2.5mg bid. The proper dose is 5mg bid as wt>60kg, Cr <1.5. Should go home on 5mg bid
Original Note:
Today's Communication / Plan
-
amio 200 bid first dose tomorow
reduce metoprolol succinate to 25 bid
OK for home today. Has appt with EPS 03-14 to discuss PVI
D/C TIKOSYN
Impression / Plan
-
See full cardiology consult scanned into his chart.
Planning And Analysis Manager: Dr. Carias
PAF - rapid ventricular response.
- Back in NSR
- failed FELISHA/cardioversion 01/30/24. Successful but then recurred in minutes
- Eliquis now 5 mg BID due to age and creatinine 1.4
- QT prolongation (to >500ms) completely resolved off Tikosyn - ECG yesterday with QTc 384ms
- OK for discharge today and begin amiodarone 200mg bid tomorrow. Should get one month supply with 3 refills. He may undergo PVI
- has outpatient appointment (03/14/24) with EP cardiology to discuss possible PVI.
- reduce metoprolol to 25mg bid as amiodarone to start
- FELISHA 01/30/24: EF 50-55%, mildly dilated RV with mildly reduced function, JESUS, severe TR, no NHI thrombus, small PFO present.
HFpEF - acute on chronic.
- agree with IV Lasix daily
- ensure K > 4 and Mag > 2
- FELISHA as above.
- CXR with mild interstitial cardiogenic pulmonary edema, moderate cardiomegaly, mild left to right mediastinal shift which appears chronic and unchanged.
Tricuspid regurgitation - severe on recent FELISHA.
- diuresis as above.
HTN - stable on Toprol.
- monitor with IV Cardizem.
Subjective: Feels well. OK for home OFF tikosyn and to start amio 200 bid tomorrow. Ultimate dose will be 200qd after 1-3 months of 200 bid. Metop to drop to 25 bid
Physical Exam
Vital Signs/Labs
Vital Signs
Temp Pulse Resp BP Pulse Ox
98.2 F 60 20 141/95 93
03/05/24 07:04 03/05/24 04:11 03/05/24 07:04 03/05/24 04:11 03/05/24 07:04
03/04/24 03/05/24 03/06/24
06:59 06:59 06:59
Actual Weight 214 lb 8.156 oz 211 lb 6.773 oz
03/03/24 05:05
03/05/24 04:17
Magnesium 2.0 mg/dl (1.6-2.3) 03/05/24 04:17
03/01/24
13:58
[id number] Pept 3330
LAB Results
03/02/24
07:40
Troponin I Cancelled
Physical Exam
Constitutional: No acute distress and Comfortable
EENT: Anicteric
Cardiovascular: Rhythm & rate is regular
Respiratory: Respiratory effort normal and Lungs clear to auscul.
GI: Non tender
Neuro/Psych: AO x 3 and Motor deficits absent
Data Reviewed
-
Date of Service: March 05, 2024
[2024-03-05] MEDS: NOVOLOG FLEXPEN-LOW RESISTANCE 1 UNITS SC (08:04)
[2024-03-05] MEDS: LASIX 40 MG IV (08:06)
[2024-03-05] MEDS: PROTONIX 40 MG PO (08:07)
[2024-03-05] MEDS: ULTRAM 50 MG PO (08:07)
[2024-03-05] MEDS: ASPIR LOW (ENTERIC COATED) 81 MG PO (08:08)
[2024-03-05] MEDS: ELIQUIS 5 MG PO (08:08)
[2024-03-05] MEDS: TOPROL XL 25 MG PO (08:08)
[2024-03-05] MEDS: MAG-TAB SR 84 MG PO (08:09)
[2024-03-05] MEDS: ANTIFUNGAL CLEAR 1 APPLIC TOPICAL (08:09)
--- NOTE | 2024-03-05 10:34 | PTCARENOTE ---
received patient this am, patient wants to go home today. informed patient that I need doctors to see him before discharge. monitor shows NSR, VSS. patient ambulating in hallway, lisa. well.
[2024-03-05 10:57] VITALS: BP 142/70
--- NOTE | 2024-03-05 11:15 | PTCARENOTE ---
D/C instructions given to patient , verbalizes understanding. INT D/C'd, telemetry D/C
'd, personal belongings packed and sent with patient. D/C to home via wc accompanied by staff.
--- NOTE | 2024-03-05 18:55 | W.PN.HOSP.TC ---
Addendum entered and electronically signed by Ben Lara MD 03/05/24 20:29:
Attending Addendum:
I saw and evaluated the patient. I reviewed the resident�s note and agree with findings and plan as documented in the resident�s note. Sub: Patient anxious to leave. No further events of rapid afib. Full 12 point ROS reviewed and negative except as
documented Exam: Vitals reviewed in chart GEN-NAD heart RRR lungs clear abd soft LE no edema
# A fib RVR
- resolved
- failed FELISHA/CV on 01/29
- TIKOSYN DC'd
- Amio 200 bid first dose to start 03/06
- metoprolol succinate decreased to 25 bid
- eliquis increased to appropriate dose
- DC home appt with EPS 03-14 to discuss PVI
# CKD 3a
- cr @ baseline
# HFpEF- not in AE cont Lasix
# HTN- cont benazepril on DC
# HLD - cont zocor
# GERD- cont omeprazole
Time spent coordinating care, DC planning, review of DC plan of care with resident, transition of care, review of records, med rec/scripts sent electronically, consults, notes, d/w consultants/cards, nursing, PCP and CM� 35 mins
Original Note:
Today's Communication/Plan
-
Patient is being discharged today
Follow-up BMP 1 week
Assessment / Plan
Assessment / Plan
Patient is being discharged today.
Atrial fibrillation with rapid ventricular response:
- In sinus rhythm after starting dofetilide which was later discontinued due to QTc prolongation
- No palpitations, dizziness, chest pain, nausea, fatigue.
- Continue metoprolol 25 mg p.o. home dose
- Cardiology would like to start him on amiodarone 200 Mg twice daily starting tomorrow for 3 months.
- Has an outpatient appointment on 03/14/2024 to discuss a possible PVI.
- Continue apixaban 5mg home dose
- Cardiology following.
Acute on chronic heart failure with preserved ejection fraction
- Echocardiogram in January 2024 with LVEF of 50-55%.
- Continue furosemide 40 mg daily at home
- Monitor daily weights, I&Os, fluid and sodium restrictions.
- Wrote him a prescription for BMP 1 week with his primary care physician.
Iron deficiency
-Continue to monitor in outpatient PCP office labs.
Essential hypertension
-Today's blood pressure is 142 /70 and well-controlled
- Continue benazepril
-Continue metoprolol.
Hyperlipidemia
- Continue simvastatin.
Chronic kidney disease, stage IIIa
-Creatinine level is 1.3, BUN is 31
- Follow BMP.
-
Type II diabetes mellitus
-Controlled with diet
- A1c of 6.8 in January 2024.
Chronic constipation
- Continue polyethylene glycol at home dose.
Thromboprophylaxis
- Apixaban.
Code status
- Full.
Anticipated Discharge: Today
Subjective/Interval History
-
Date of Service: March 05, 2024
He is an 78-year-old male who was admitted from home his primary care physician is Dr. Yvon Feng. He was admitted on 03/01 for shortness of breath for almost 2 weeks bilateral lower extremity edema swelling, weight gain, palpitations. Recently
diagnosed with A-fib in 2023 and was cardioverted in January 2024 with new onset heart failure.. He was seeing Dr Carias ( a content administrator) in his office on 03/01 when he was recommended to go to the emergency department because his heart
rate was in the 140s. Chest x-ray showed cardiomegaly, mild interstitial pulmonary edema, and an EKG showed A-fib with rapid ventricular response with premature ventricular complexes. First they started him on a Diltiazem drip. Started on
dofetilide 250 mcg every 12 hourly, but then discontinued due to an increased QTc interval. Cardio consulted with him today in the morning and have switched him to amiodarone. He denies any chest pain, dizziness, fatigue, palpitations, SOB.
Objective Data
-
Vital Signs:
Vital Signs
Temp Pulse Resp BP Pulse Ox
98.2 F 59 16 142/70 92
03/05/24 10:57 03/05/24 10:57 03/05/24 10:57 03/05/24 10:57 03/05/24 08:30
I&O
03/04/24 03/05/24 03/06/24
06:59 06:59 06:59
Intake Total 480 / 480 240 / 240
Output Total 1300 / 1300 2975 / 2975
Balance -820 / -820 -2735 / -2735
Review of Systems
-
History Source: Patient
Respiratory: Reports Cough and Trouble Breathing
Cardiac: Reports Chest Pain, Palpitations, Syncope, PND and Orthopnea
Abdomen/GI: Reports Abdominal Pain, Nausea and Vomiting
Neuro: Reports Dizzy, Headache, Weakness, Numbness and Lightheadedness
Physical Exam
-
General: Well Developed, Well Nourished and No Apparent Distress
Respiratory: Clear to Auscultation
Cardiac: Regular Rhythm
Musculoskeletal: Edema, Right Lower Extrem and Edema, Left Lower Extrem
Skin: Warm and Dry
Neuro: Awake, Alert, Oriented and AO x 3
Psych: Calm
Data Reviewed
-
Medical Tests (Nuc Med, Echo etc): Image personally visualized and interpreted and Discussed with Physician
Labs: Labs Reviewed by me and Discussed with Physician
--- NOTE | 2024-03-05 21:01 | W.DCSUMMARY ---
Addendum entered and electronically signed by Ben Lara MD 03/06/24 06:19:
Read, reviewed, and agree. See same day progress note for additional details. Patient adamant about leaving. PCP updated. Medication list verified with patient.
Kwabena Lara MD
Original Note:
Documented by User: Alonzo Covarrubias MD, Resident 03/05/24 21:48
Discharge Summary
Discharge Data
Date of Admission: 03/01/24
Date of Discharge: 03/05/24
-
Pending Results: No
Hospital Course
Patient is an 78-year-old male with a past medical history of A-fib on Eliquis, CHF, HTN, diabetes who presented from home whose primary care physician is Dr. Yvon Feng. He was admitted with shortness of breath for almost 2 weeks and bilateral
lower extremity edema swelling, weight gain, palpitations. He was in his cardiologists office in the morning when welder machine operator suggested he go to the emergency room because he had a heart rate in the 140s. This patient had cardioversion done in
January 2024 which was successful initially but reoccurrence of A-fib after a few days. Admitted with diagnosis of Atrial Fibrillation with Rapid ventricular rate and Heart failure with preserved ejection fraction. His at home medication at the time
of admission is beta-conchis for rate control and Eliquis for stroke prophylaxis. EKG on admission shows atrial fibrillation with rapid ventricular response, the ventricular rate is 141 bpm. Significant lab abnormalities on admission include a pro
B natruretic peptide of 3330, normal troponin 1 levels less than 0.012, total bilirubin 1.5, glucose of 206, creatinine of 1.5 and a BUN of 30. His chest x-ray on admission shows moderate cardiomegaly with mild interstitial cardiogenic pulmonary
edema. Admitted to the IVU and started on IV Cardizem drip, IV Lasix. On 03/02/2024, cardiology was consulted and initiated Tikosyn 250 mcg every 12 hourly, which resulted in sinus rhythm. On 03/04/2024 Tikosyn was discontinued as cardiology was
worrying about increased QTc interval. On 03/05/2024 cardiology switched him to amiodarone 200 Mg twice daily for 3 months with the first dose on Tuesday03/06/2024,advised to continue metoprolol dose at 25 mg twice daily, increased Eliquis to 5 Mg
as his discharge medications. Last EKG before discharge shows a ventricular rate of 59 bpm and sinus bradycardia. Echocardiogram in January 2024 shows left ventricular ejection fraction of 50 to 55%. Over the course of hospital stay patient has
lost approximately 4 lbs of weight and on discharge feels no chest pain, dizziness, nausea, palpitations, vomiting, shortness of breath. Has outpatient appointment with EP cardiology to discuss possible PVI on 03/14/2024. Script written for follow
up BMP in one week.
Discharge Plan
-
Patient Disposition: Home (Routine Discharge)
Discharge Diagnosis/Procedures: Atrial Fibrillation with RVR, Acute on Chronic HFpEF
Condition: Fair
Diet: Low Cholesterol, 2 Gram Sodium and Restrict fluids to 64 oz
Activity: As tolerated
Driving Restrictions: As prior to admission
Bathing Restrictions: None
Blood Work: CMP in 1 week
Instructions: *CBC Heart Failure Instructions
Referrals:
Yvon Feng MD [Family Provider] -
Gael Carias MD [Active] -
Additional Discharge Medication Instructions: Repeat your CMP (labs) in 1 week.
Follow-up with your primary care in 1 week.
You have an appointment with Cardiac electrophysiology on 03/14/2024-please keep up the appointment.
Please chart amiodarone 200 mg tablet beginning tomorrow-03/06/2024.
Follow sodium restricted and fluid restricted diet as shown in the heart failure instructions.
Monitor your weight regularly, if there is a weight gain of more than 5 pounds in 1 week please call your primary care or cardiology.
Follow-up with your cardiology with next available appointment.
Prescriptions:
New
amiodarone 200 mg tablet
200 mg PO BID 30 Days Qty: 60 3RF
Rx Instructions:
Please start your medication beginning tomorrow 03/06/2024.
Critic-Aid Clear AF(miconazol) 2 % Ointment
1 applic topical BID 10 Days Qty: 30 0RF
metoprolol succinate 25 mg tablet extended release 24 hr
25 mg PO BID 30 Days Qty: 60 3RF
Continued
Eliquis 5 mg Tablet
5 mg PO BID
simvastatin 5 mg Tablet
5 mg PO HS
aspirin 81 mg Tablet,Delayed Release (Dr/Ec)
81 mg PO DAILY
tramadol 50 mg Tablet
50 mg PO TID
Patient Comments:
03/01/2024: last filled 01/02/24, 270 tabs for 90 days from [id number]
furosemide 40 mg Tablet
40 mg PO DAILY Qty: 30 0RF
polyethylene glycol 3350 [Miralax] 17 gram Powder In Packet
17 g PO Q48H
omeprazole 20 mg Capsule,Delayed Release(Dr/Ec)
20 mg PO DAILY
benazepril 20 mg tablet
20 mg PO DAILY
magnesium oxide 400 mg magnesium Tablet
400 mg PO DAILY
Discontinued
metoprolol succinate 50 mg tablet extended release 24 hr
50 mg PO BID
Discharge Orders:
Discharge Patient (As Directed); Ordered 03/05/24
Ordered By: Hallie Melendez
Care Plan Goals
Care Plan Goals:
Problem: Readiness for enhanced knowledge related to diagnosis and treatment plan
Goal: Understand your diagnosis and treatment plan needs, including medications if applicable.
Instructions: Know your diagnosis, underlying causes and treatment plan options, including medications if applicable. Consult with your health care team to learn about your diagnosis and treatment plan, including medications if applicable.
Discharge Date and Time
Discharge Date/Time: 03/05/24 11:15
Print Language: CHINESE

Documented by User: Ben Lara MD 03/06/24 06:18
Discharge Summary
Discharge Data
Date of Admission: 03/01/24
Date of Discharge: 03/06/24
Discharge Plan
-
Patient Disposition: Home (Routine Discharge)
Discharge Diagnosis/Procedures: Atrial Fibrillation with RVR, Acute on Chronic HFpEF
Condition: Fair
Diet: Low Cholesterol, 2 Gram Sodium and Restrict fluids to 64 oz
Activity: As tolerated
Driving Restrictions: As prior to admission
Bathing Restrictions: None
Blood Work: CMP in 1 week
Instructions: *CBC Heart Failure Instructions
Referrals:
Yvon Feng MD [Family Provider] -
Gael Carias MD [Active] -
Additional Discharge Medication Instructions: Repeat your CMP (labs) in 1 week.
Follow-up with your primary care in 1 week.
You have an appointment with Cardiac electrophysiology on 03/14/2024-please keep up the appointment.
Please chart amiodarone 200 mg tablet beginning tomorrow-03/06/2024.
Follow sodium restricted and fluid restricted diet as shown in the heart failure instructions.
Monitor your weight regularly, if there is a weight gain of more than 5 pounds in 1 week please call your primary care or cardiology.
Follow-up with your cardiology with next available appointment.
Prescriptions:
New
amiodarone 200 mg tablet
200 mg PO BID 30 Days Qty: 60 3RF
Rx Instructions:
Please start your medication beginning tomorrow 03/06/2024.
Critic-Aid Clear AF(miconazol) 2 % Ointment
1 applic topical BID 10 Days Qty: 30 0RF
metoprolol succinate 25 mg tablet extended release 24 hr
25 mg PO BID 30 Days Qty: 60 3RF
Continued
Eliquis 5 mg Tablet
5 mg PO BID
simvastatin 5 mg Tablet
5 mg PO HS
aspirin 81 mg Tablet,Delayed Release (Dr/Ec)
81 mg PO DAILY
tramadol 50 mg Tablet
50 mg PO TID
Patient Comments:
03/01/2024: last filled 01/02/24, 270 tabs for 90 days from [facility][id number]
furosemide 40 mg Tablet
40 mg PO DAILY Qty: 30 0RF
polyethylene glycol 3350 [Miralax] 17 gram Powder In Packet
17 g PO Q48H
omeprazole 20 mg Capsule,Delayed Release(Dr/Ec)
20 mg PO DAILY
benazepril 20 mg tablet
20 mg PO DAILY
magnesium oxide 400 mg magnesium Tablet
400 mg PO DAILY
Discontinued
metoprolol succinate 50 mg tablet extended release 24 hr
50 mg PO BID
Discharge Orders:
Discharge Patient (As Directed); Ordered 03/05/24
Ordered By: Hallie Melendez
Care Plan Goals
Care Plan Goals:
Problem: Readiness for enhanced knowledge related to diagnosis and treatment plan
Goal: Understand your diagnosis and treatment plan needs, including medications if applicable.
Instructions: Know your diagnosis, underlying causes and treatment plan options, including medications if applicable. Consult with your health care team to learn about your diagnosis and treatment plan, including medications if applicable.
Discharge Date and Time
Discharge Date/Time: 03/05/24 11:15
Print Language: CHINESE
--- NOTE | 2024-03-06 09:36 | W.HF.CON ---
Heart Failure
- LV Function
Left ventricular function study result: LV Ejection fraction >/= 50% (ECHO 01/31/24)
Ejection Fraction Percentage: 50-55
- ARNI
Patient already on ARNI: No
Heart Failure ARNI Not Indicated: LV Ejection Fraction >/= 40%
- ACEI/ARB
Patient already on ACEI/ARB: Yes
- Beta Charles
Patient already on Evidence Based Beta Charles: Yes
- Mineralocorticord Receptor Antagonist
Patient already on MRA: No
Heart Failure MRA Not Indicated: LV Ejection Fraction > 40%
- SGLT-2 Inhibitor
Patient already on SGLT-2 Inhibitor: No
Heart Failure SGLT-2 Inhibitor Not Indicated: LV Ejection Fraction >40%
- Afib Anticoagulation
Patient already on Anticoagulation for Afib: Yes
- NYHA CHF Classification
NYHA CHF Classification Level: Class III - Symptoms w/ min exertion, interferes w/ nml daily activity
- ACC/AHA Stage
ACC/AHA Stage: Stage C: Symptomatic Heart Failure
== END 2024-03-05 11:15 | disposition home or self-care (01) | DRG 291 ==
LOC: IVU 17:46
PROVIDERS: Student in an Organized Health Care Education/Training Program; ADMITTING PHYSICIAN Internal Medicine; ATTENDING PHYSICIAN Family Medicine; EMERGENCY PHYSICIAN Emergency Medicine; FAMILY PHYSICIAN Family Medicine
DX: I13.0 Hypertensive heart and chronic kidney disease with heart failure and stage 1 through stage 4 chronic kidney disease, or unspecified chronic kidney disease (principal); I50.33 Acute on chronic diastolic (congestive) heart failure; I48.19 Other persistent atrial fibrillation; E78.5 Hyperlipidemia, unspecified; N18.31 Chronic kidney disease, stage 3a; I36.1 Nonrheumatic tricuspid (valve) insufficiency; E11.22 Type 2 diabetes mellitus with diabetic chronic kidney disease; E61.1 Iron deficiency; K59.09 Other constipation; Z79.82 Long term (current) use of aspirin; Z79.01 Long term (current) use of anticoagulants; Z87.891 Personal history of nicotine dependence; Z79.899 Other long term (current) drug therapy
CPT/HCPCS: 71045; 80048; 80053; 82728; 82962; 83540; 83550; 83735; 83880; 84484; 85025; 85027; 93005; 96374; 96375; 97163; 97165; 99285; J2916

== ENCOUNTER → 2024-03-14 10:42 | Outpatient (REF) | payer MEDICARE, OTHER, SELFPAY | LOC: RAD 10:42 | PROVIDERS: ATTENDING PHYSICIAN Physician Assistant; FAMILY PHYSICIAN Family Medicine | DX: R31.0 Gross hematuria (principal) | CPT/HCPCS: 76770 ==

== ENCOUNTER → 2024-04-05 11:21 | Outpatient (REF) | payer MEDICARE, OTHER, SELFPAY | LOC: RAD 11:21 | PROVIDERS: ATTENDING PHYSICIAN Physician Assistant; FAMILY PHYSICIAN Family Medicine | DX: N13.30 Unspecified hydronephrosis (principal) | CPT/HCPCS: 74178; Q9967 ==

== ENCOUNTER → 2024-05-07 09:00 | Outpatient (REF) | payer MEDICARE, OTHER, SELFPAY ==
[2024-05-07 09:43] LABS: % Basophils 0.6 % (0-2); % Eosinophils 2.2 % (0-6); % Immature Granulocytes 0.3 % (0-0.5); % Monocytes 8.8 % (1.7-9.3); % Neutrophils 81.1 % (42.2-75.2); Absolute Eosinophils 0.2 10^3/uL (0-0.7); Absolute Lymphocytes 0.5 10^3/uL (1.2-3.4); Absolute Monocytes 0.6 10^3/uL (0.1-0.6); Absolute Neutrophils 5.7 10^3/uL (1.4-6.5); Hematocrit 44.7 % (39.0-52.0); Hemoglobin 15.6 g/dL (13.0-18.0); Mean Corp Hgb Conc. 34.9 g/dL (33.0-37.0); Mean Corpuscular Hgb 30.2 pg (27.0-31.0); Mean Corpuscular Volume 86.5 fL (80.0-94.0); Mean Platelet Volume 9.6 fL (7.4-10.4); Nucleated Red Blood Cells % 0 % (-); Platelet Count 219 10^3/uL (130-400); Red Blood Cell Count 5.17 10^6/uL (4.70-6.10); Red Cell Dist. Width 15.2 % (11.5-14.5)
[2024-05-07 09:52] LABS: INR 1.33; PT 16.7 Sec (11.4-14.6)
[2024-05-07 09:59] LABS: ALT (SGPT) 26 U/L (0-50); AST (SGOT) 27 U/L (17-59); Albumin 4.3 g/dl (3.5-5.0); Alkaline Phosphatase 104 U/L (38-126); Blood Urea Nitrogen 31 mg/dl (9-20); Calcium 9.8 mg/dl (8.4-10.2); Carbon Dioxide 30 mmol/L (22-30); Chloride 100 mmol/L (98-107); Glucose 211 mg/dl (70-99); Sodium 140 mmol/L (135-145); Total Bilirubin 0.6 mg/dl (0.2-1.3); Total Protein 7.7 g/dl (6.3-8.2); eGFR 46.77
== END ==
LOC: SDSPAT 09:00
PROVIDERS: ATTENDING PHYSICIAN Internal Medicine Cardiovascular Disease; FAMILY PHYSICIAN Family Medicine; OTHER PHYSICIAN Internal Medicine Cardiovascular Disease
DX: I36.1 Nonrheumatic tricuspid (valve) insufficiency (principal); I48.19 Other persistent atrial fibrillation; R60.0 Localized edema
CPT/HCPCS: 36415; 75572; 80053; 85025; 85610; 86850; 86900; 86901; 93005; Q9967

== ENCOUNTER 2024-06-05 07:45 | Inpatient (IN) | payer MEDICARE, OTHER, SELFPAY ==
[2024-05-07 09:21] VITALS: BMI 32.0
--- NOTE | 2024-05-07 09:36 | HPS.HSE ---
Family Physician
-
Family Physician: NO INTERVIEW UNKNOWN
Chief Complaint
-
Persistent atrial fibrillation.
History of Present Illness
The patient is an 78 year old male presenting today for persistent atrial fibrillation. The patient reports a history of fatigue and lethargy associated with this diagnosis. He previously underwent a FELISHA-guided cardioversion in January
2023 for his arrhythmia. Unfortunately, his atrial fibrillation reoccurred soon after this procedure. He is on current pharmacological therapy with Amiodarone and Metoprolol Succinate. He previously failed Tikosyn due to QT prolongation. He reports
he has been compliant with Eliquis for oral anticoagulation due to a CHADS-VASc of 5. He is interested in pursuing with FARAPULSE atrial fibrillation ablation to further manage his symptoms and to hopefully discontinue Amiodarone one day over fears
of toxicities with long-term use. A watchman implantation is also recommended at this time given his increased risk for both thromboembolic and bleeding events. In February 2024, the patient did experience an episode of hematuria which was
attributed to both Eliquis and Aspirin use. Aspirin has been discontinued since that hospital admission. He denies any current complaints today such as chest pain and shortness of breath at rest, palpitations, nausea, vomiting, diarrhea,
lightheadedness, dizziness, cough, sore throat, or fever.
Medical History
Past Medical History
Past Medical History: Reports Other
Additional Past Medical History:
1. Persistent atrial fibrillation, status post FELISHA-guided cardioversion 01/2024; pharmacological therapy with Metoprolol Succinate and Amiodarone, oral anticoagulation with Eliquis.
2. Hypertension.
3. Coronary artery disease.
4. Sinus bradycardia.
5. Congestive heart failure, preserved ejection fraction.
6. Severe tricuspid regurgitation.
7. Small PFO per FELISHA 01/2024.
8. Mild benign-appearing mediastinal lymphadenopathy and mild bilateral upper lobe emphysema per chest CTA 04/2024.
9. Chronic kidney disease stage III.
10. Non-insulin dependent diabetes per records, A1c 6.8 01/2024.
11. GERD.
12. Bilateral renal cysts.
13. Restless leg syndrome.
14. Osteoarthritis.
15. Chronic pain syndrome with opioid dependence.
16. Hematuria, 02/2024, likely secondary to chronic oral anticoagulation and prior Aspirin use.
17. Obesity, BMI 31.9.
18. Remote history of tobacco abuse.
19. Daily alcohol.
Past Surgical History: Reports Other
Additional Past Surgical History:
1. FELISHA-guided cardioversion.
2. Left inguinal hernia repair.
3. Pilonidal cystectomy.
4. Tonsillectomy.
5. Dental implantation.
Social History
Tobacco: Former Smoker (He is a former more than 1 pack per day cigarette smoker who quit tobacco altogether over 20 years ago. )
Alcohol: Daily (Reports 1 scotch drink 'most nights.')
Personal:
Living: Other (He lives in a 4 story home with his . )
Family History
Family History: Not pertinent
Allergies / Home Medications
Allergy/Medication List:
Home medications:
1. Amiodarone 200 mg p.o. twice a day.
2. Amlodipine 5 mg p.o. daily.
3. Benazepril 20 mg p.o. daily.
4. Eliquis 5 mg p.o. twice a day.
5. Furosemide 40 mg p.o. daily.
6. Metoprolol Succinate 25 mg p.o. twice a day.
7. Omeprazole 20 mg p.o. daily.
8. Miralax 17 grams p.o. daily as needed.
9. Simvastatin 5 mg p.o. at bedtime.
10. Tramadol 50 mg p.o. three times a day.
Allergies: No known allergies.
Review of Systems
-
A 12 point ROS was completed and negative except as noted: Yes
Physical Exam
Vital Signs
Blood pressure 154/76. Heart rate 49. Respirations 18. Pulse ox 96% on room air.
Height 5 feet, 8 inches. Weight 95.3 kg. BMI 31.9.
Physical Exam
General: Well Developed, Well Nourished and No Apparent Distress
HEENT: NormoCephalic, Moist mucous membranes, Atraumatic and PERRLA
Respiratory: Clear
Cardiac: Bradycardia
GI: Soft, Non Tender, Non Distended and Other (Obese. )
Musculoskeletal: No Edema and Normal Gait & Station
Skin: Warm and Dry
Neuro: AO x 3 and Nonfocal/grossly intact
Laboratory Results
-
DIAGNOSTIC STUDIES as of 05/07/2024: White blood cell count 7.0. Hemoglobin 15.6. Platelet count 219,000. PT 16.7. INR 1.33. Sodium 140. Potassium 4.0. BUN 31. Creatinine 1.5. Glucose 211. Calcium 9.8. AST 27. ALT 26. Albumin 4.3. Type and screen O
negative.
EKG 05/07/2024: Sinus bradycardia. Low voltage QRS.
Chest CTA 05/07/2024: Left Atrial Appendage Chicken Wing Morphology without evidence for thrombus. LEFT ATRIAL APPENDAGE OSTIUM MAXIMUM DIAMETER: 18.41 mm. Severe calcific atherosclerotic plaque in the coronary arteries. Mild benign-appearing
mediastinal lymphadenopathy. Mild bilateral upper lobe emphysema.
Transesophageal echocardiogram 01/30/2024: Left ventricular ejection fraction is 50 to 55%. Mildly dilated right ventricle with mildly reduced function. Biatrial enlargement. Severe tricuspid regurgitation. PASP likely underestimated in the setting
of severe tricuspid regurgitation. No left atrial appendage thrombus. Small PFO present.
Impression/Plan
-
IMPRESSION/PLAN:
1. Persistent atrial fibrillation: The patient is in need of a FARAPULSE atrial fibrillation ablation and watchman implantation with Dr. Maricel Silva on 05/22/2024. The benefits and risks of the procedure have been explained to the patient. The
patient understands these risks and wishes to proceed. He is aware that he must be compliant with Eliquis for 45 days post-procedure. In 45 days, a post-Watchman transesophageal echocardiogram will take place. If his device is well seated and
without significant leaks, he will be transitioned off Eliquis and onto dual antiplatelet therapy. After 6 months of dual antiplatelet therapy, he may go on Aspirin alone.
--- NOTE | 2024-05-25 13:43 | WATCHMAN ---
Documented by User: [email or web address] Moreira 05/25/24 13:48
Watchman
Wathcman Procedure
Referred by:: Ricardo
[id number] Score
Age in Years (65=0, 65-74=1, >/=75=2): > or = 75
Sex (Female=+1): Male
Congestive Heart Failure History (Yes=+1): Yes
Hypertension History (Yes=+1): Yes
Stroke/TIA/Thromboembolism History (Yes=+2): No
Vascular Disease History (Yes=+1): No
Diabetes Mellitus (Yes=+1): Yes
Score: 5
Anticoagulation Recommendations: Recommend anticoagulation (as validated in nonvalvular fib)
HASBLED Score
Hypertenstion (uncontrolled >160mmHG systolic): No
Renal disease (dialysis, transplant, Cr >2.26mg/dL or >200umol/L): No
Liver disease (cirrhosis or bilirubin >2x normal w/ AST/ALT/AP >3x normal: No
Stroke history: No
Prior major bleeding or predisposition to bleeding: Yes
Labile INR(unsable/high INRs,time in therapeutic range <60%): No
Age >65: Yes
Medication usage predisposing to bleeding(ASA, NSAIDS): No
Alcohol use (>/= 8 drinks/week): Yes
Score: 3
Risk: Alternatives to anticoagulation should be considered: Patient is at high risk for major bleeding
Electrocardiogram
Interpretation: abnormal
Heart Rate: 53
Rate: bradycardiac
Rhythm: sinus
Physician Visits
Credit Checker:: Ricardo
Date of Visit:: 03/14/24
Primary Adjunct Latin Professor:: Jv
PCP:: Yvon Feng
Oral Anticoagulation
Post procedure anticoagulation plan:: Eliquis 5mg BID
Plan
Plan:: 03/14/2025: Seen in consult by Dr. Silva
05/07/2024: CT watchman and pre-admission testing completed.

Documented by User: [email or web address] Fong 06/05/24 07:30
Watchman
[id number] Score
Score: 5
Anticoagulation Recommendations: Recommend anticoagulation (as validated in nonvalvular fib)
HASBLED Score
Score: 3
Risk: Alternatives to anticoagulation should be considered: Patient is at high risk for major bleeding
Plan
Plan:: 03/14/2025: Seen in consult by Dr. Silva
05/07/2024: CT watchman and pre-admission testing completed.
06/05/2024: Reviewed Mr. Claros with the heart team in the preWatchman SDM meeting and discussed a 20/24mm device. Will confirm with intraop imaging. Patient will continue 5 mg Eliquis BID x 3 months until follow up FELISHA.
[2024-06-05] VITALS (13 sets, daily range): BP systolic 109–170; BP diastolic 57–101
[2024-06-05] MEDS: NSS 500 IV (08:37)
[2024-06-05 08:40] LABS: Glucose - Point of Care 170 mg/dl (70-99)
[2024-06-05 10:57] LABS: ACT-LR - POC 334 Seconds (116-155)
[2024-06-05 11:16] LABS: ACT-LR - POC 382 Seconds (116-155)
[2024-06-05 12:25] LABS: Glucose - Point of Care 186 mg/dl (70-99)
--- NOTE | 2024-06-05 12:54 | ITS.CL.ABL ---
Laboratory Phlebotomist - Ablation
Ablation
Procedure Report:
AFIB ablation:
Mr. Claros is a very pleasant 78 yr old gentleman, a patient of Dr. Carias, with symptomatic paroxysmal AF, with CHADSVascc score of 5 on Eliquis with h/o hematuria and high risk of recurrent bleeding is recommended a placement of Watchman with
atrial fibrillation ablation.
Date of the Procedure:
06/05/2024
Indications:
Paroxysmal atrial fibrillation, Hematuria with high CHADSVasc score
Pre-Operative Diagnosis:
Paroxysmal atrial fibrillation, Hematuria with high CHADSVasc score
Post-Operative Diagnosis:
Paroxysmal atrial fibrillation, Hematuria with high CHADSVasc score
Procedure Performed:
Atrial fibrillation ablation with Pulsed-Field approach for pulmonary vein isolation
Left atrial appendage occlusion with Watchman implantation (24 mm Watchman FLX Pro left atrial appendage closure device)
Performing Physician:
Ablation and implant: Maricel Silva MD
FELISHA: Gael Carias M.D.
Assistants:
EP staff
Anesthesia:
See anesthesia records
Detailed Description of the Procedure:
Written informed consent was obtained from the patient after a full explanation of the risks and benefits of the procedure including the risks of sedation and anesthesia.
The patient was brought to the electrophysiology laboratory in stable condition in fasting state. Continuous electrocardiographic and hemodynamic monitoring was initiated.
The initial rhythm was sinus.
The procedure site was meticulously prepared with surgical scrub and allowed to dry with no pooling. Sterile draping was applied to cover the procedure site. The image intensifier was draped with sterile bag and positioned over the patient. After
infusion of local anesthetic, vascular access was obtained under ultrasound guidance and sheaths were placed over guide wire as detailed below.
Sheath and Catheter Placement:
The following catheters / sheaths were placed
Sheaths:
��������� 17Fr steerable sheath (Faradrive�, Coinsetter) in right femoral that later swapped to Watchman delivery sheath
��������� 9Fr in right femoral vein
��������� 7Fr in right femoral vein
Catheters:
��������� SVEN HD Grid mapping catheter � at locations of RA, LA
��������� Farawave� PFA catheter
��������� ICE catheter �[place] ViewFlex - at locations of RA, SVC, and RV.
��������� Watchman catheter
��������� Bard Decapolar catheter.
Intracardiac ECHO:
An 8-Uzbek AcuNav intracardiac ECHO (ICE) probe was advanced through the 9-Uzbek sheath in the right femoral vein into the right atrium under fluoroscopic and ICE ultrasound image guidance and a baseline ECHO study was performed. The left atrial
size was normal. There was moderate tricuspid regurgitation. The aortic valve was grossly normal. There was normal left ventricular systolic functions. There is no pericardial effusion. All the four veins were identified and has flow identified.
There was good flow noted in the NHI. There was no NHI clot noted.
During the procedure, ICE was used for monitoring of complications, guidance of trans-septal puncture, monitor the catheter position and tracking ablation lesions. No change in the pericardial space noted throughout the procedure.
Trans-septal Puncture:
Heparin was initiated and infused to maintain appropriate ACT. A pigtail guidewire was advanced through the 8-Uzbek sheath in the right femoral vein into the superior vena cava under fluoroscopic and ICE guidance. The 9-Uzbek sheath was exchanged
for a Faradrive sheath which was advanced into the superior vena cava. A trans-septal RF pigtail via Faradrive connect system was utilized to perform the trans-septal puncture. The apparatus was withdrawn until it was in contact with the fossa
ovalis. The position was adjusted based on fluoroscopy and ultrasound images from ICE. Under fluoroscopic, hemodynamic and ICE ultrasound guidance, left atrium was cannulated by applying RF energy. Once atrial septum was cannulated, the pigtail wire
was advanced through the needle into the left atrium. The guide wire was advanced into the left superior pulmonary vein. Both the sheath and the dilator was advanced into the left atrium. The dilator with the needle was withdrawn. Blood was
aspirated from the Faradrive sheath and arterial blood confirmed. The sheath was flushed. Saline injection noted into the left atrium on ICE. The mapping catheter was advanced in the sheath into the left pulmonary vein. Left atrial pressure was
measured.
3D Electroanatomic Mapping:
Using the HD Grid catheter advanced through sheath into the left atrium, an electroanatomic map (EAM) of the left atrium was created using IronGate mapping system. The map was used for localization of catheter position and tacking of ablation
lesions.
The EAM of the left atrium showed 4 pulmonary veins with all 4 veins electrically connected to the body the LA. It showed normal voltage on the posterior and anterior wall of the LA. The LA was mildly dilated in size.
Following the EAM, preparation were made for ablation.
Ablation:
Ablation # 1: Pulmonary vein Isolation:
Glycopyrrolate 0.2 mg was given prior to the placement of ablation. Using RemitPro pulsed wave ablation system, pulmonary vein isolation was achieved. First the ablation catheter was placed in the LSPV and ostial ablation lesions were performed in a
counter clock grant approach all around the PV ostium circumferentially. Then the catheter was placed on the antral location and multiple ablation lesions were placed circumferentially on the antrum of the vein.
In the similar fashion, the LIPV were isolated.
Then the catheter was moved to right sided veins. The ostial and antral ablations were placed as noted above.
EPS and Confirmation of the PVI and bidirectional block:
Following achievement of entrance block at the pulmonary veins, pacing from the HD catheter in each of the four veins at 10 milliamps for 2 milliseconds showed entrance and exit block. All PVI were rechecked at the end of the case and remained
isolated. Entrance and exit block were demonstrated in all veins.
Post ablation Electroanatomic mapping:
Once ablation was completed, the EAM of the LA was done again in sinus rhythm with excellent demarcation of LA myocardium and isolated antral tissue. There was no significant scarring noted in the LA.
The NHI had healthy signals and was not isolated.
Watchman implantation:
Using the trans-septal RF pigtail, the Faradrive sheath was swapped with Watchman delivery sheath over the RF pigtail. A curved pig tail was advanced over the guide wire into the left atrium and the wire was removed.
Left atrial appendage atriography:
The pigtail was advanced into the NHI and was confirmed on fluoroscopy and FELISHA. The contrast was injected and the NHI shape was recorded in HYDE /Caudal view (25/25 degrees). The size of the NHI was again checked and confirmed reviewing the FELISHA and
the fluoroscopy along with previously obtained CT scan images.
Watchman Deployment:
The Watchman delivery sheath was advanced into the NHI over the pigtail till the right marker was at the location of the orifice line marked on the screen. The pigtail was removed and the Watchman delivery system was advanced through the sheath into
the NHI till it was aligned with the outer sheath marker inside the NHI. The watchman sheath was clicked with the outer sheath. Once acceptable location achieved, the outer sheath was pulled back keeping the device steady at the NHI location till a
ball of the device was formed under fluoroscopic guidance. The whole system was advanced further into the NHI till adequate depth is achieved into the NHI. The NHI occluder was deployed and expanded adequately anchoring to the NHI. The device was
kept anchored with stable pressure to that location for 10 seconds.
The FELISHA image confirmed adequate expansion. The tug test was done that showed the device is anchored well and is not able to come out. The compression was 14%, 12% and 26% on the three sides. There was no significant leak noted on the Doppler via
FELISHA.
The device was deployed by unscrewing the Watchman device and releasing from the connecting wire. The wire was pulled back into the sheath and the sheath was pulled out of the LA.
Implanted device:
WATCHMAN FLX Pro � 24mm
Procedure End
FELISHA study was done again that showed no epicardial accumulation that was unchanged from earlier. A repeated images showed no change in the pericardial space. No complications noted.
Following the completion of the deployment, catheters were removed. Protamine 40 mg was given at the end of the procedure and ACT was checked repeatedly. The sheath was removed and hemostasis achieved with Figure of 8 and manual compression after
acceptable ACT is achieved.
Left atrial Pressure:
Mean LA pressure was 8mmHg
Estimated Blood loss:
<10 cc
Specimens Removed:
None.
Implants / Devices:
None
Urine output:
None
Packs / Drains/ Tubes:
None
Instrument / Sponge Count Correct:
Yes
Complications of the Procedure:
None
Condition of Patient at Time of Transfer:
Hemodynamically stable with no neurological or vascular compromise.
Summary:
Successful atrial fibrillation ablation with Pulsed Field approach for pulmonary vein isolation.
Successful implantation of the left atrial occlusion device (WATCHMAN FLX Pro� 24mm)
Post procedure Plan for anticoagulation:
Continue Eliquis for 3 months.
Based on 3 months FELISHA, will plan to switch Eliquis to ASA 81 mg indefinitely.
Figures from the Procedure:
Figure 1: The electroanatomic mapping (EAM) of the left atrium with bipolar voltage (purple indicates normal electrical activity with navarrete as no myocardial muscle electric activity indicating a line of block or scar.
[2024-06-05] MEDS: ANESTHETIC LOZENGE 1 LOZENGE PO (13:16)
[2024-06-05] MEDS: TYLENOL 650 MG PO (16:08)
--- NOTE | 2024-06-05 16:21 | W.PN.UPDATE ---
Update Note
Progress Note Update
Pt seen post PFA and watchman device implant. Right groin site without ht/bleeding, oob ambulating, urinating without difficulty. Post EKG SB 50s, no acute changes. Resume eliquis tonight and continue amiodarone, other meds as before. Followup FELISHA
in 3 months as scheduled and at [facility] in 2 weeks. Home today if groin site/tele remain stable.
--- NOTE | 2024-06-05 17:48 | W.DS.TRANS ---
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
-
Discharge Instructions:
Discharge Diagnosis/Procedures AFib, s/p ablation + Watchman device implant
Diet Low Cholesterol
Driving Restrictions No driving for 24 hours
Others Tests 3 month follow up FELISHA has been scheduled for you
at [facility] on 09/03/2024 with
Alise. You will receive a call from
Ricardo's office to review instructions.
Instructions:
Stand-Alone Forms: DC Instructions- Cath/EP Lab
Changes to Home Medications: No
Discharge Medications:
DC Medications w/original date entered in [facility]
apixaban 5 mg tablet (Eliquis) 5 mg PO BID Blood Clot Prevention/Tx 01/28/24
simvastatin 5 mg tablet 5 mg PO HS High Cholesterol 01/28/24
tramadol 50 mg tablet 50 mg PO TID Pain 01/28/24
furosemide 40 mg tablet 40 mg PO DAILY #30 tabs 01/30/24
benazepril 20 mg tablet 20 mg PO DAILY Blood Pressure 03/01/24
omeprazole 20 mg capsule,delayed release 20 mg PO DAILY Gastrointestinal Issue 03/01/24
amiodarone 200 mg tablet 200 mg PO BID Arrhythmia 30 days #60 tabs 03/05/24
metoprolol succinate 25 mg tablet,extended release 24 hr 25 mg PO BID 30 days #60 tabs 03/05/24
amlodipine 5 mg tablet 5 mg PO DAILY 05/07/24
Home Medication Changes
Pending Results: No
== END 2024-06-05 16:28 | disposition home or self-care (01) | DRG 317 ==
LOC: CATH-IN 07:45
PROVIDERS: ADMITTING PHYSICIAN Internal Medicine Cardiovascular Disease
PROC: 4A023FZ Measurement of Cardiac Rhythm, Percutaneous Approach (ICD-10-PCS; 2024-06-05)
PROC: 02L73DK Occlusion of Left Atrial Appendage with Intraluminal Device, Percutaneous Approach (ICD-10-PCS; 2024-06-05)
PROC: B24BZZ4 Ultrasonography of Heart with Aorta, Transesophageal (ICD-10-PCS; 2024-06-05)
PROC: 02583ZF Destruction of Conduction Mechanism using Irreversible Electroporation, Percutaneous Approach (ICD-10-PCS; 2024-06-05)
PROC: 02K83ZZ Map Conduction Mechanism, Percutaneous Approach (ICD-10-PCS; 2024-06-05)
PROC: 4A0234Z Measurement of Cardiac Electrical Activity, Percutaneous Approach (ICD-10-PCS; 2024-06-05)
DX: I48.19 Other persistent atrial fibrillation (principal); Z00.6 Encounter for examination for normal comparison and control in clinical research program; F11.20 Opioid dependence, uncomplicated; I13.0 Hypertensive heart and chronic kidney disease with heart failure and stage 1 through stage 4 chronic kidney disease, or unspecified chronic kidney disease; I50.32 Chronic diastolic (congestive) heart failure; Q21.12 Patent foramen ovale; I25.10 Atherosclerotic heart disease of native coronary artery without angina pectoris; I07.1 Rheumatic tricuspid insufficiency; J43.9 Emphysema, unspecified; N18.31 Chronic kidney disease, stage 3a; E11.22 Type 2 diabetes mellitus with diabetic chronic kidney disease; K21.9 Gastro-esophageal reflux disease without esophagitis; R59.0 Localized enlarged lymph nodes; G89.4 Chronic pain syndrome; E66.9 Obesity, unspecified; G25.81 Restless legs syndrome; N28.1 Cyst of kidney, acquired; M19.90 Unspecified osteoarthritis, unspecified site; Z68.31 Body mass index [BMI] 31.0-31.9, adult; Z79.01 Long term (current) use of anticoagulants; Z79.84 Long term (current) use of oral hypoglycemic drugs; Z79.899 Other long term (current) drug therapy; Z87.891 Personal history of nicotine dependence
CPT/HCPCS: 33340; 82962; 85347; 86900; 86901; 93005; 93355; 93656; C1730; C1732; C1733; C1759; C1766; C1892; C1894; Q9967

== ENCOUNTER → 2024-08-29 09:02 | Outpatient (REF) | payer MEDICARE, OTHER, SELFPAY | LOC: SDSPAT 09:02 | PROVIDERS: ATTENDING PHYSICIAN Internal Medicine; FAMILY PHYSICIAN Family Medicine; OTHER PHYSICIAN Internal Medicine Cardiovascular Disease | DX: I48.19 Other persistent atrial fibrillation (principal); R60.0 Localized edema; I36.1 Nonrheumatic tricuspid (valve) insufficiency | CPT/HCPCS: 93005 ==

== ENCOUNTER 2024-09-05 07:05 | Day surgery (SDC) | payer MEDICARE, OTHER, SELFPAY ==
[2024-08-29 09:22] VITALS: BMI 34.0
--- NOTE | 2024-08-29 09:54 | HPS.HSE ---
Family Physician
-
Family Physician: NO INTERVIEW UNKNOWN
Chief Complaint
-
Persistent atrial fibrillation.
History of Present Illness
The patient is an 78 year old male presenting today for persistent atrial fibrillation. The patient reports a history of fatigue and lethargy associated with this diagnosis. He previously underwent a FELISHA-guided cardioversion in January
2023 for his arrhythmia. Unfortunately, his atrial fibrillation reoccurred soon after this procedure. He is on current pharmacological therapy with Amiodarone and Metoprolol Succinate. He previously failed Tikosyn due to QT prolongation. He reports
he has been compliant with Eliquis for oral anticoagulation due to a CHADS-VASc of 5. In February 2024, the patient did experience an episode of hematuria which was attributed to both Eliquis and Aspirin use. Aspirin has been discontinued since that
hospital admission. Given his increased risk for thromboembolic and bleeding events while remaining on Eliquis, he did undergo an advised FARAPULSE atrial fibrillation ablation and Watchman implant with Dr. Maricel Silva on June 05, 2024. He
reports no post-operative complications. He now returns for his 3 month post-Watchman transesophageal echocardiogram to assess the stability of his device. He denies any current complaints today such as chest pain and shortness of breath at rest,
palpitations, nausea, vomiting, diarrhea, lightheadedness, dizziness, cough, sore throat, or fever.
Medical History
Past Medical History
Past Medical History: Reports Other
Additional Past Medical History:
1. Persistent atrial fibrillation, status post FELISHA-guided cardioversion, 01/2024, and FARAPULSE atrial fibrillation and Watchman implant 05/2024; pharmacological therapy with Metoprolol Succinate and Amiodarone, oral anticoagulation with Eliquis.
2. Hypertension.
3. Coronary artery disease.
4. Sinus bradycardia.
5. Congestive heart failure, preserved ejection fraction.
6. Mild to moderate valvular disease.
7. Small PFO per FELISHA 01/2024.
8. Mild benign-appearing mediastinal lymphadenopathy and mild bilateral upper lobe emphysema per chest CTA 04/2024.
9. Chronic kidney disease stage III.
10. Non-insulin dependent diabetes per records.
11. GERD.
12. Bilateral renal cysts.
13. Restless leg syndrome.
14. Osteoarthritis.
15. Chronic pain syndrome with opioid dependence.
16. Hematuria, 02/2024, likely secondary to chronic oral anticoagulation and prior Aspirin use.
17. Obesity, BMI 34.0.
18. Remote history of tobacco abuse.
19. Daily alcohol.
Past Surgical History: Reports Other
Additional Past Surgical History:
1. FARAPULSE atrial fibrillation ablation and Watchman implant.
2. FELISHA-guided cardioversion.
3. Left inguinal hernia repair.
4. Pilonidal cystectomy.
5. Tonsillectomy.
6. Dental implantation.
Social History
Tobacco: Former Smoker (He is a former more than 1 pack per day cigarette smoker who quit tobacco altogether over 20 years ago.)
Alcohol: Daily (Reports 1 scotch drink 'most nights.')
Personal:
Living: Other (He lives in a 4 story home with his . His home reportedly has an elevator.)
Family History
Family History: Not pertinent
Allergies / Home Medications
Allergy/Medication List:
Home medications:
1. Amiodarone 200 mg p.o. twice a day.
2. Amlodipine 5 mg p.o. daily.
3. Benazepril 20 mg p.o. daily.
4. Eliquis 5 mg p.o. twice a day.
5. Furosemide 40 mg p.o. daily.
6. Metoprolol Succinate 25 mg p.o. twice a day.
7. Omeprazole 20 mg p.o. daily.
8. Simvastatin 5 mg p.o. at bedtime.
9. Tramadol 50 mg p.o. three times a day.
Allergies: No known allergies.
Review of Systems
-
A 12 point ROS was completed and negative except as noted: Yes
Physical Exam
Vital Signs
Blood pressure 158/78. Heart rate 50. Respirations 18. Pulse ox 97% on room air.
Height 5 feet, 7 inches. Weight 98.5 kg. BMI 34.0.
Physical Exam
General: Well Developed, Well Nourished and No Apparent Distress
HEENT: NormoCephalic, Moist mucous membranes, Atraumatic and PERRLA
Respiratory: Clear
Cardiac: Bradycardia
GI: Soft, Non Tender, Non Distended and Other (Obese. )
Musculoskeletal: No Edema and Normal Gait & Station
Skin: Warm and Dry
Neuro: AO x 3 and Nonfocal/grossly intact
Psych: Anxious
Laboratory Results
-
EKG 08/29/2024: Sinus bradycardia with first degree AV block. Low voltage QRS.
Transesophageal echocardiogram 06/05/2024: Postprocedure Watchman device appears well-seated with adequate compression and no evidence of leak around device by color-flow Doppler. No pericardial effusion postprocedure. Ejection fraction is 60-65%.
Mild mitral regurgitation. Moderate tricuspid regurgitation.
Impression/Plan
-
IMPRESSION/PLAN:
1. Persistent atrial fibrillation: The patient is 3 months post-Watchman and will need to undergo a transesophageal echocardiogram to assess the overall stability of his device. This will take place on 09/05/[address] Michael Phillips. The benefits
and risks of the procedure have been explained to the patient. The patient understands these risks and wishes to proceed. Should his device be well seated without significant leaks, he likely will be transitioned from Eliquis to a daily baby Aspirin
indefinitely.
== END 2024-09-05 09:45 | disposition home or self-care (01) ==
LOC: CATH 07:05
PROVIDERS: ATTENDING PHYSICIAN Internal Medicine; FAMILY PHYSICIAN Family Medicine; OTHER PHYSICIAN Internal Medicine Cardiovascular Disease
DX: I48.19 Other persistent atrial fibrillation (principal); I08.1 Rheumatic disorders of both mitral and tricuspid valves; I08.8 Other rheumatic multiple valve diseases; Q21.12 Patent foramen ovale; I25.10 Atherosclerotic heart disease of native coronary artery without angina pectoris; I10 Essential (primary) hypertension; I50.30 Unspecified diastolic (congestive) heart failure; K21.9 Gastro-esophageal reflux disease without esophagitis; Q21.10 Atrial septal defect, unspecified; Z79.899 Other long term (current) drug therapy; Z79.82 Long term (current) use of aspirin
CPT/HCPCS: 93312; 93320; 93325

== ENCOUNTER 2024-09-07 11:08 | Inpatient (IN) | payer MEDICARE, OTHER, SELFPAY ==
[2024-09-07] VITALS (13 sets, daily range): BP systolic 121–164; BP diastolic 59–87; BMI 34.1; BMI 33.9
--- NOTE | 2024-09-07 05:44 | ED.GENMED ---
History of Present Illness
<TOMAS Valverde Jr. Last Filed: 09/09/24 14:40>
General
Chief Complaint: Musculo-Skeletal Complaint
Source: patient and spouse
Exam Limitations: none
Time Seen by Provider: 09/07/24 04:54
Nursing documentation reviewed up to this point in time: agreed with
History of Present Illness
History of Present Illness:
78-year-old male past medical history of A-fib, CHF, hypertension hyperlipidemia recent Watchman procedure 3 months ago and FELISHA for follow-up 2 days ago presenting with concerns mainly of the left shoulder pain that seem to occur immediately after
waking up from the FELISHA. Increased discomfort with movement of the shoulder worsening this morning. Also felt like he may have been febrile and had some chills last night. Denies any chest pain shortness of breath nausea vomiting upper respiratory
symptoms.
Past History
<Mejia Nuñez Jr., PA-C - Last Filed: 09/09/24 14:40>
Past History
ED Past Medical History: Arrthythmia (A fib) and NIDDM
ED Past Surgical History: Tonsilectomy
Social History
Tobacco: Non-smoker
Alcohol: None
Personal:
Living: with family
Review of Systems
<TOMAS Valverde Jr. Last Filed: 09/09/24 14:40>
Review of Systems
Allergies reviewed?: Yes
All Other Systems: ROS reviewed and negative except as documented in HPI and ROS
Phy Exam
<TOMAS Valverde Jr. Last Filed: 09/09/24 14:40>
Physical Exam
Physical Exam:
GENERAL: Alert , in no apparent distress
EYE: pupils equal and reactive
NECK: Supple, no significant adenopathy.
ENT: o/p clr, mmm.
CARDIAC: Regular rate and rhythm .
LUNGS: Clear breath sounds bilaterally, no acute respiratory distress, no wheezes/rales/rhonchi
ABDOMEN: Soft, without focal tenderness, no r/g, no cvat
NEUROLOGICAL: Alert and oriented, no focal neuro deficits
SKIN: Warm and dry, skin intact.
MUSCULOSKELETAL: Mild discomfort when palpating throughout the left anterior deltoid as well as the left lateral trapezius muscle no overlying skin changes no redness or warmth. Significant increased discomfort to the left shoulder with flexion of
the shoulder as well as abduction. Increased discomfort with shrugging of the left shoulder as well. Well perfused.
PSYCH: Normal and appropriate interaction.
Sepsis
<Mejia Nuñez Jr., PA-C - Last Filed: 09/09/24 14:40>
Sepsis Screen
Sepsis Screen: Sepsis
Date: 09/09/24
Time: 14:39
<Dio Hope PA-C - Last Filed: 09/07/24 08:38>
Sepsis Screening
Sepsis Assessment: Sepsis
Sepsis Screen
Sepsis Screen: Sepsis
Date: 09/07/24
Time: 06:45
Course
<Mejia Nuñez Jr., PA-C - Last Filed: 09/09/24 14:40>
Orders/Labs/Results
Orders:
Orders
09/07/24 05:39
EKG [Electrocardiogram (*1)] Urgent
Reason for Study: Chest Pain
CR Shoulder, Trauma - Left Urgent
Comment:
Reason For Exam: shoulder pain
Chest [CR Chest - 2 Views ] Urgent
Comment:
Reason For Exam: shoulder pain/cp
09/07/24 05:41
EKG- Treatment ONCE
09/07/24 05:44
Acetaminophen [Tylenol] 1,000 mg PO NOW STA
Lidocaine [Lidocaine 4% Patch] 1 patch TOPICAL NOW STA
Apply Lidocaine patch(s) to:: shoulder
09/07/24 05:48
BMP [Basic Metabolic Panel] Urgent
CBC/With Diff [Complete Blood Count/With Diff] Urgent
09/07/24 07:01
CT Chest With Iv Contrast Urgent
Comment:
Reason For Exam: L chest pain, recent FELISHA, fever
09/07/24 07:08
Lactic Acid Q4H
Comment: CANCEL 2nd LACTIC ACID IF 1st LACTIC ACID IS LESS THAN 2
Troponin I Urgent
Blood Culture Q30M
ADITI Source: Blood/Venous
Specimen Description:
09/07/24 07:24
Blood Culture Q30M
ADITI Source: Blood/Venous
Specimen Description:
09/07/24 08:37
Piperacillin/Tazo 3.375 Gram [Zosyn] 3.375 gram in 50 ml IV NOW
09/07/24 Lunch
Cholesterol Lowering
At Your Request: Full Participation
Does patient need a safe tray?: No
Fluid Restriction: 1500 mL/day (50 oz)
Cholesterol Lowering: Sodium, 2 Gram
09/07/24 10:32
Admit/Transfer Patient As Directed
Co-Sign Provider:
Level of Care: Inpatient admission
Assign to:: Telemetry
Physician / Group: painter/hospitalist
Diagnosis: asp pna/shoulder pain/hypoxemia
Reason for Telemetry: Other
Other Reason for Telemetry: elevated trop
Date to Stop Telemetry: 09/09/24
Time to Stop Telemetry: 11:00
Reason for Hospitalization: asp pna/shoulder pain/hypoxemia
Expected length of stay greater than two midnights?: Yes
ELOS- Estimated Length of Stay in days: 3
I certify the patient meets the requirements for IP care: Yes
PRN Pain Medication Management As Directed
May give lesser potent ordered pain med per pt: Yes
preference::
Protocol:: Medication orders for pain may be administered in a
manner that supports deferring to patient preference
when the pt is:
- Requesting an ordered lesser potent pain medication.
Least to most potent pain medications are defined
as: acetaminophen < NSAID < tramadol < opioids
(morphine, oxycodone, hydromorphone).
- Requesting a lesser dose of the same medication IF
ORDERED.
- Requesting a less intrusive route of administration
if both routes are prescribed by the provider (PO <
IV).
09/07/24 10:34
Code Status As Directed
Resuscitation Status: Full Code
09/07/24 12:36
Aspirin Low Dose EC [Aspir Low (Enteric Coated)] 81 mg PO DAILY
Metoprolol Xl [Toprol Xl] 25 mg PO DAILY
09/07/24 12:36
Respiratory Culture/Gram Stain Urgent
ADITI Source: Sputum
Specimen Description:
Activity As Directed
Activity Level: Out of Bed-Early Mobility
Intake/ Output As Directed
Frequency: Per unit guidelines
Vital Signs As Directed
Frequency: Per unit guidelines
Weight As Directed
Frequency: Once
Comment: on admission
Speech Therapy Eval & Treat Routine
DX Deep Vein Thrombosis Video Routine
09/07/24 14:00
Ampicillin/Sulbactam 3 G [Unasyn] 3 gm 0.9% Sodium Chloride 100 ml [Nss] 100 ml IV Q6H
09/07/24 16:00
Tramadol HCl [Ultram] 50 mg PO TID
09/07/24 20:00
Heparin 5,000 units SC Q12
09/07/24 22:00
Atorvastatin [Lipitor] 10 mg PO HS
09/08/24 06:50
Basic Metabolic Panel IN AM
Complete Blood Count/With Diff IN AM
09/08/24 08:00
Amlodipine [Norvasc] 5 mg PO DAILY
Furosemide [Lasix] 40 mg PO DAILY
Lisinopril [Zestril] 20 mg PO DAILY
09/08/24 13:00
Pantoprazole [Protonix] 40 mg PO DAILY
09/09/24 05:36
Basic Metabolic Panel IN AM
Complete Blood Count/With Diff IN AM
09/09/24 11:00
DC Protocol for Telemetry ONCE
09/10/24 06:00
Basic Metabolic Panel IN AM
Complete Blood Count/With Diff IN AM
Abnormal Lab Results
09/07/24 09/07/24
05:48 07:08
WBC 16.4 H 10^3/uL
(4.8-10.8)
MCH 32.5 H pg
(27.0-31.0)
Plt Count 121 L 10^3/uL
(130-400)
Abs Immat Gran (auto) 0.2 H 10^3/uL
(0-0.05)
Absolute Neuts (auto) 15.2 H 10^3/uL
(1.4-6.5)
Absolute Lymphs (auto) 0.2 L 10^3/uL
(1.2-3.4)
Immature Gran % 1.3 H %
(0-0.5)
Neutrophils % 92.5 H %
(42.2-75.2)
Lymphocytes % 1.2 L %
(20.5-51.1)
Potassium 3.3 L mmol/L
(3.5-5.1)
BUN 24 H mg/dl
(9-20)
Creatinine 1.5 H mg/dL
(0.7-1.3)
Glucose 270 H mg/dl
(70-99)
Troponin I 0.089 H* ng/ml
09/07/24 05:48
09/07/24 05:48
Vital Signs
Initial and Last Documented VS:
Initial Vital Signs
Temp Pulse Resp BP Pulse Ox
98.0 F 91 24 137/78 92
09/07/24 04:48 09/07/24 04:48 09/07/24 04:48 09/07/24 04:48 09/07/24 04:48
Last Documented Vital Signs
Temp Pulse Resp BP Pulse Ox
98.3 F 65 16 128/68 95
09/09/24 11:05 09/09/24 11:05 09/09/24 11:05 09/09/24 11:05 09/09/24 11:05
<Dio Hope PA-C - Last Filed: 09/07/24 08:38>
Orders/Labs/Results
Orders:
Orders
09/07/24 05:39
EKG [Electrocardiogram (*1)] Urgent
Reason for Study: Chest Pain
CR Shoulder, Trauma - Left Urgent
Comment:
Reason For Exam: shoulder pain
Chest [CR Chest - 2 Views ] Urgent
Comment:
Reason For Exam: shoulder pain/cp
09/07/24 05:41
EKG- Treatment ONCE
09/07/24 05:44
Acetaminophen [Tylenol] 1,000 mg PO NOW STA
Lidocaine [Lidocaine 4% Patch] 1 patch TOPICAL NOW STA
Apply Lidocaine patch(s) to:: shoulder
09/07/24 05:48
BMP [Basic Metabolic Panel] Urgent
CBC/With Diff [Complete Blood Count/With Diff] Urgent
09/07/24 07:01
CT Chest With Iv Contrast Urgent
Comment:
Reason For Exam: L chest pain, recent FELISHA, fever
09/07/24 07:08
Lactic Acid Q4H
Comment: CANCEL 2nd LACTIC ACID IF 1st LACTIC ACID IS LESS THAN 2
Troponin I Urgent
Blood Culture Q30M
ADITI Source: Blood/Venous
Specimen Description:
09/07/24 07:24
Blood Culture Q30M
ADITI Source: Blood/Venous
Specimen Description:
09/07/24 08:37
Piperacillin/Tazo 3.375 Gram [Zosyn] 3.375 gram in 50 ml IV NOW
09/07/24 Lunch
Cholesterol Lowering
At Your Request: Full Participation
Does patient need a safe tray?: No
Fluid Restriction: 1500 mL/day (50 oz)
Cholesterol Lowering: Sodium, 2 Gram
09/07/24 10:32
Admit/Transfer Patient As Directed
Co-Sign Provider:
Level of Care: Inpatient admission
Assign to:: Telemetry
Physician / Group: painter/hospitalist
Diagnosis: asp pna/shoulder pain/hypoxemia
Reason for Telemetry: Other
Other Reason for Telemetry: elevated trop
Date to Stop Telemetry: 09/09/24
Time to Stop Telemetry: 11:00
Reason for Hospitalization: asp pna/shoulder pain/hypoxemia
Expected length of stay greater than two midnights?: Yes
ELOS- Estimated Length of Stay in days: 3
I certify the patient meets the requirements for IP care: Yes
PRN Pain Medication Management As Directed
May give lesser potent ordered pain med per pt: Yes
preference::
Protocol:: Medication orders for pain may be administered in a
manner that supports deferring to patient preference
when the pt is:
- Requesting an ordered lesser potent pain medication.
Least to most potent pain medications are defined
as: acetaminophen < NSAID < tramadol < opioids
(morphine, oxycodone, hydromorphone).
- Requesting a lesser dose of the same medication IF
ORDERED.
- Requesting a less intrusive route of administration
if both routes are prescribed by the provider (PO <
IV).
09/07/24 10:34
Code Status As Directed
Resuscitation Status: Full Code
09/07/24 12:36
Aspirin Low Dose EC [Aspir Low (Enteric Coated)] 81 mg PO DAILY
Metoprolol Xl [Toprol Xl] 25 mg PO DAILY
09/07/24 12:36
Respiratory Culture/Gram Stain Urgent
ADITI Source: Sputum
Specimen Description:
Activity As Directed
Activity Level: Out of Bed-Early Mobility
Intake/ Output As Directed
Frequency: Per unit guidelines
Vital Signs As Directed
Frequency: Per unit guidelines
Weight As Directed
Frequency: Once
Comment: on admission
Speech Therapy Eval & Treat Routine
DX Deep Vein Thrombosis Video Routine
09/07/24 14:00
Ampicillin/Sulbactam 3 G [Unasyn] 3 gm 0.9% Sodium Chloride 100 ml [Nss] 100 ml IV Q6H
09/07/24 16:00
Tramadol HCl [Ultram] 50 mg PO TID
09/07/24 20:00
Heparin 5,000 units SC Q12
09/07/24 22:00
Atorvastatin [Lipitor] 10 mg PO HS
09/08/24 06:50
Basic Metabolic Panel IN AM
Complete Blood Count/With Diff IN AM
09/08/24 08:00
Amlodipine [Norvasc] 5 mg PO DAILY
Furosemide [Lasix] 40 mg PO DAILY
Lisinopril [Zestril] 20 mg PO DAILY
09/08/24 13:00
Pantoprazole [Protonix] 40 mg PO DAILY
09/09/24 05:36
Basic Metabolic Panel IN AM
Complete Blood Count/With Diff IN AM
09/09/24 11:00
DC Protocol for Telemetry ONCE
09/10/24 06:00
Basic Metabolic Panel IN AM
Complete Blood Count/With Diff IN AM
Abnormal Lab Results
09/07/24 09/07/24
05:48 07:08
WBC 16.4 H 10^3/uL
(4.8-10.8)
MCH 32.5 H pg
(27.0-31.0)
Plt Count 121 L 10^3/uL
(130-400)
Abs Immat Gran (auto) 0.2 H 10^3/uL
(0-0.05)
Absolute Neuts (auto) 15.2 H 10^3/uL
(1.4-6.5)
Absolute Lymphs (auto) 0.2 L 10^3/uL
(1.2-3.4)
Immature Gran % 1.3 H %
(0-0.5)
Neutrophils % 92.5 H %
(42.2-75.2)
Lymphocytes % 1.2 L %
(20.5-51.1)
Potassium 3.3 L mmol/L
(3.5-5.1)
BUN 24 H mg/dl
(9-20)
Creatinine 1.5 H mg/dL
(0.7-1.3)
Glucose 270 H mg/dl
(70-99)
Troponin I 0.089 H* ng/ml
09/07/24 05:48
09/07/24 05:48
Vital Signs
Initial and Last Documented VS:
Initial Vital Signs
Temp Pulse Resp BP Pulse Ox
98.0 F 91 24 137/78 92
09/07/24 04:48 09/07/24 04:48 09/07/24 04:48 09/07/24 04:48 09/07/24 04:48
Last Documented Vital Signs
Temp Pulse Resp BP Pulse Ox
98.3 F 65 16 128/68 95
09/09/24 11:05 09/09/24 11:05 09/09/24 11:05 09/09/24 11:05 09/09/24 11:05
<Mejia Nuñez Jr., PA-C - Last Filed: 09/09/24 14:40>
MDM/Problems Addressed
MDM/Problems Addressed:
86-year-old male present emergency department with concerns of left shoulder and neck that seem to occur after waking up from a FELISHA procedure 2 days ago. Slightly worse this morning. Significant discomfort with movement of the left shoulder and
left shoulder girdle. No overlying skin changes no redness or warmth. Symptoms seem to be mechanical specifically improved when sitting still and worsened with movement of the shoulder. The patient did mention he felt somewhat 'off' as well as
had chills yesterday basic labs were ordered. He mentioned at one point the shoulder pain somewhat radiating to the chest. EKG obtained without acute abnormalities
<Dio Hope PA-C - Last Filed: 09/07/24 08:38>
*Critical Care Note
Total Time (30-74mins, 75-104mins- exclusive of procedures): Not Applicable
<Dio Hope PA-C - Last Filed: 09/07/24 08:38>
Update Note
Update Note:
0700: Assumed care of patient from Ed TOMAS Nuñez, 78-year-old male presenting with left upper chest, left trapezius, and left shoulder pain beginning yesterday morning. He had undergone a FELISHA the day prior and states that he was on his side for
the FELISHA. Of note he had chills and a near temperature of 100.6 earlier this morning that resolved upon arrival. He denies any dyspnea, pleuritic pain, dysphagia, nausea, vomiting, or dysuria. He is approximately 3-month status post Watchman
procedure, anticoagulation was discontinued yesterday as well as amiodarone. On my exam the patient is resting comfortably in no distress, he has no reproducible chest wall or trapezius tenderness, no subcutaneous emphysema. Heart sounds are
regular and lungs are clear. Previous workup reveals leukocytosis, mild hypokalemia, and chest x-ray independently interpreted by me shows no acute osseous abnormality, no subcutaneous air, no evidence for pneumothorax. Given his recent invasive
procedure and reported fever at home coupled with leukocytosis we will add blood cultures and lactic, check troponin for completeness. Will send for CT of the chest to evaluate for an early developing pneumonia or possible esophageal injury
although this is considered less likely given lack of subcutaneous air on x-ray.
0837: Imaging reveals aspiration pneumonia which is most likely due to his recent FELISHA. He is notably mildly hypoxic in the low 90s requiring supplemental oxygen. As a result we will start IV antibiotics and admit to the hospitalist service
ED Attending Note
<Mejia Nuñez Jr., PA-C - Last Filed: 09/09/24 14:40>
-
Portions of this chart may have been created with voice recognition software.� Occasional wrong word or��sound alike� substitutions may have occurred due to the inherent limitations of voice recognition software.
Discharge Plan
Departure
Patient Disposition: Admit
Date of Disposition: 09/07/24
Time of Disposition: 08:36
Admit to: Med/Surg
Presentation/result/management discussed w/ accepting MD/DO: Hospitalist
Patient with high blood pressure during this ER visit?: No
Condition: Good
Covid-19: Not Applicable
Discharge Problem:
Aspiration pneumonia, Hypoxia
Interventions
Interventions:
*Risk Screen - Suicide Last Done: 09/07/24 04:48
*General Assessment Last Done: 09/07/24 06:23
*Neglect/Abuse Screening Last Done: 09/07/24 06:23
*ED- Fall Risk Assessment Last Done: 09/07/24 06:23
*ED COVID-19 Vaccine History Last Done: 09/07/24 06:23
*Nursing Disposition Last Done: 09/07/24 12:19
ED-Musculoskeletal Assessment Last Done: 09/07/24 08:48
Discharge Date and Time
Discharge Date/Time: 09/07/24 12:19
[2024-09-07] MEDS: LIDOCAINE 4% PATCH 1 PATCH TOPICAL (05:50)
[2024-09-07] MEDS: TYLENOL 1000 MG PO (05:51)
[2024-09-07 06:06] LABS: % Basophils 0.3 % (0-2); % Eosinophils 1.2 % (0-6); % Immature Granulocytes 1.3 % (0-0.5); % Lymphocytes 1.2 % (20.5-51.1); % Monocytes 3.5 % (1.7-9.3); % Neutrophils 92.5 % (42.2-75.2); Absolute Basophils 0.1 10^3/uL (0-0.2); Absolute Eosinophils 0.2 10^3/uL (0-0.7); Absolute Immature Granulocytes 0.2 10^3/uL (0-0.05); Absolute Lymphocytes 0.2 10^3/uL (1.2-3.4); Absolute Monocytes 0.6 10^3/uL (0.1-0.6); Absolute Neutrophils 15.2 10^3/uL (1.4-6.5); Mean Corp Hgb Conc. 36.4 g/dL (33.0-37.0); Mean Corpuscular Hgb 32.5 pg (27.0-31.0); Mean Corpuscular Volume 89.2 fL (80.0-94.0); Mean Platelet Volume 9.6 fL (7.4-10.4); Nucleated Red Blood Cells % 0 % (-); Platelet Count 121 10^3/uL (130-400); Red Blood Cell Count 4.93 10^6/uL (4.70-6.10); Red Cell Dist. Width 12.4 % (11.5-14.5); White Blood Cell Count 16.4 10^3/uL (4.8-10.8)
[2024-09-07 06:28] LABS: Blood Urea Nitrogen 24 mg/dl (9-20); Calcium 9.7 mg/dl (8.4-10.2); Carbon Dioxide 23 mmol/L (22-30); Chloride 104 mmol/L (98-107); Estimated Creatinine Clearance 44 ml/min; Glucose 270 mg/dl (70-99); Potassium 3.3 mmol/L (3.5-5.1); Sodium 136 mmol/L (135-145); eGFR 46.77
[2024-09-07 08:00] LABS: Lactic Acid 1.9 mmol/L (0.7-2.0)
[2024-09-07 08:14] LABS: Troponin I 0.089 ng/ml
[2024-09-07] MEDS: ZOSYN 50 IV (08:40)
--- NOTE | 2024-09-07 10:36 | HPS.HSE ---
Family Physician
-
Family Physician: Yvon Feng
Chief Complaint
-
left shoulder pain
History of Present Illness
78-year-old male who is presenting from home with left shoulder pain. Patient underwent FELISHA post Watchman device and he was laid on the left side during procedure per patient. States of left shoulder pain unable to completely extend at times.
Also signs of subjective chills at home. No productive cough. States of coughing due to his sinus infection at times or PND. Denies any chest pain, shortness of breath, lightheadedness. Currently denies any productive cough. States of increased
discomfort at the left shoulder and with some chills decided come into the hospital. Denies any nausea or vomiting. Denies any abdominal pain diarrhea or dysuria. States of trace lower extremity edema. S/p Watchman device he was taken off
Eliquis and amiodarone.
Medical History
Past Medical History
Past Medical History: Reports Other
Additional Past Medical History:
Persistent atrial fibrillation, status post FELISHA-guided cardioversion, 01/2024, and FARAPULSE atrial fibrillation and Watchman implant 05/2024;
Hypertension.
Coronary artery disease.
Sinus bradycardia.
Congestive heart failure, preserved ejection fraction.
Small PFO per FELISHA 01/2024.
Chronic kidney disease stage III.
GERD.
Bilateral renal cysts.
Restless leg syndrome.
Osteoarthritis.
Chronic pain syndrome with opioid dependence.
Hematuria, 02/2024, likely secondary to chronic oral anticoagulation and prior Aspirin use.
Obesity, BMI 34.0.
Remote history of tobacco abuse.
Daily alcohol.
Past Surgical History: Reports Other
Additional Past Surgical History:
Atrial fibrillation ablation and Watchman implant.
FELISAH-guided cardioversion.
Left inguinal hernia repair.
Pilonidal cystectomy.
Tonsillectomy.
Dental implantation.
Social History
Tobacco: Former Smoker (1ppd quit 20 years aog )
Alcohol: Daily (1 drink-single malt whiskey)
Personal:
Living: With Family
Family History
Family History: Not pertinent
Allergies / Home Medications
Allergies reflects when Allergies were last updated in [facility].
Home Medications with original date entered in [facility]
Allergy/Medication List:
Allergies
Allergy/AdvReac Type Severity Reaction Status Date / Time
No Known Drug Allergies Allergy Unknown Verified 09/07/24 04:48
Home Medications
simvastatin 5 mg tablet 5 mg PO HS High Cholesterol 01/28/24
tramadol 50 mg tablet 50 mg PO TID Pain 01/28/24
furosemide 40 mg tablet 40 mg PO DAILY #30 tabs 01/30/24
benazepril 20 mg tablet 20 mg PO DAILY Blood Pressure 03/01/24
omeprazole 20 mg capsule,delayed release 20 mg PO DAILY Gastrointestinal Issue 03/01/24
amlodipine 5 mg tablet 5 mg PO DAILY 05/07/24
metoprolol succinate 25 mg tablet,extended release 24 hr 25 mg PO DAILY 09/05/24
aspirin 81 mg tablet,delayed release 81 mg PO DAILY 09/07/24
Review of Systems
-
History Source: Patient
A 12 point ROS was completed and negative except as noted: Yes
Physical Exam
Vital Signs
Vital Signs
Temp Pulse Resp BP Pulse Ox
98.0 F 73 21 125/74 95
09/07/24 04:48 09/07/24 09:30 09/07/24 08:00 09/07/24 09:00 09/07/24 09:30
Physical Exam
General: Well Developed, Well Nourished and No Apparent Distress
HEENT: NormoCephalic, Moist mucous membranes and Atraumatic
Respiratory: Clear
Cardiac: S1/S2 and Regular Rhythm; No Murmur or Rub
GI: Soft, Non Tender, Non Distended and Normal Bowel Sounds; No Organomegaly
Rectal: Deferred by Provider
Musculoskeletal: No Clubbing, No Cyanosis, No Edema and Other (Left shoulder lido patch noted. Unable to complete lift above 60 deg. )
Skin: No Rash
Neuro: Awake, Alert, Oriented, AO x 3, No Motor Deficits and Nonfocal/grossly intact
Psych: Calm
Laboratory Results
-
09/07/24 05:48
09/07/24 05:48
Laboratory Results
Lactic Acid 1.9 mmol/L (0.7-2.0) 09/07/24 07:08
Troponin I 0.089 ng/ml H* 09/07/24 07:08
Impression/Plan
-
#Left shoulder pain secondary to positional and osteoarthritis
Continue with lidocaine patch
Tylenol as needed
Ice pack if needed
X-rays with arthritis
#Acute hypoxic respiratory insufficiency secondary to aspiration pneumonia
#Sepsis POA
# Chronic elevation of right hemidiaphragm
# Mild bilateral upper lobe emphysema
Wean oxygen as tolerated
Start patient on IV Unasyn
Sputum sample if able to provide sample
Lactic acid normal
Speech therapy evaluation
Follow-up on the blood culture data
Trend WBC.
#Elevated troponin likely secondary to recent Watchman device and FELISHA
Continue to trend troponin
Currently without any chest pain. Did not have chest pain at home
#CKD stage III
Monitor creatinine. Currently at baseline.
Monitor creatinine and patient did receive IV contrast earlier today. Hold Lasix today.
#Persistent atrial fibrillation status post Watchman device
Continue with metoprolol
Not on anticoagulation post Watchman device
#CAD
Chronic HFpEF
Continue with aspirin, beta-conchis, statin and Lasix
#Primary hypertension
Continue with Norvasc, lisinopril, Lasix and metoprolol
#Hyperlipidemia
Continue with statin
#Osteoarthritis
#Chronic opiate usage on daily basis
Tylenol as needed
Continue tramadol home regimen
Bowel regimen if needed
#Hyperkalemia
Replete as needed
Prophylaxis with heparin
Full code
I spent a total of 80 minutes with the patient or on the floor. More than 50% of this time involved counseling and coordination of care.
--- NOTE | 2024-09-07 13:01 | PTCARENOTE ---
pt admitted from ED AOx3 reports pain to left shoulder is resolving. 3L02 via NC, pt reports this is new. diminished bases b/l. abd round obese. cont b&B. skin CDI +PP b/l Trace pedal edema. x1 assist with cane. CB in reach- instructed to use
[2024-09-07] MEDS: KCL 20 MEQ PO (13:07)
[2024-09-07] MEDS: ASPIR LOW (ENTERIC COATED) 81 MG PO (13:07)
[2024-09-07] MEDS: TOPROL XL 25 MG PO (13:07)
[2024-09-07 14:08] LABS: Troponin I 0.086 ng/ml
--- NOTE | 2024-09-07 14:12 | PTOTSP ---
Speech Therapy Evaluation:
Pt with acute on chronic risk factors of dysphagia (i.e. cardiac hx, GERD, recent sedation for FELISHA with watchman's). Oral parameters WFL across consistencies. Pt failed 3oz swallow screen as demonstrated by immediate coughing following consumption
of 3oz, which he attributed to 'post nasal drip.' No overt s/sx of aspiration with small single sips of liquid or solid trials. No hx of dysphagia, speech therapy, or pneumonia, however given acute on chronic risk factors of dysphagia, elevated WBC
count, and chest CT with 'mild aspiration pneumonia,' discussed recommendation for instrumental assessment for further assessment of swallowing. Pt declined participation/diet modification at this time, expressing 'I'm fine.' Pt expressed he would
be open to assessment in the future, although he plans to be discharged tomorrow. Discussed aspiration precautions including small single sips of liquids. Pt in verbal agreement.
Recommend:
1. Continue regular solids and thin liquids via small single sips only
2. Medications as tolerated
3. Strict aspiration precautions
4. Close supervision during PO intake
5. LOCATOR SPECIALIST to follow to monitor tolerance of diet and for further education regarding instrumental assessment
[2024-09-07] MEDS: TYLENOL 650 MG PO (14:38)
[2024-09-07] MEDS: UNASYN IV ×2 (14:42→19:41)
[2024-09-07] MEDS: ULTRAM 50 MG PO ×2 (15:32→22:49)
[2024-09-07] MEDS: ROXICODONE 5 MG PO ×2 (15:45→20:38)
[2024-09-07] MEDS: HEPARIN 5000 UNITS SC (19:40)
[2024-09-07 20:09] LABS: Troponin I 0.073 ng/ml
[2024-09-07] MEDS: LIPITOR 10 MG PO (22:49)
[2024-09-08] VITALS (7 sets, daily range): BP systolic 127–144; BP diastolic 67–77; BMI 33.2
[2024-09-08] MEDS: UNASYN IV ×4 (02:32→20:17)
[2024-09-08] MEDS: ROXICODONE 5 MG PO ×4 (04:43→22:26)
[2024-09-08 07:38] LABS: Blood Urea Nitrogen 35 mg/dl (9-20); Calcium 9.6 mg/dl (8.4-10.2); Carbon Dioxide 26 mmol/L (22-30); Chloride 101 mmol/L (98-107); Estimated Creatinine Clearance 43 ml/min; Glucose 121 mg/dl (70-99); Sodium 135 mmol/L (135-145); eGFR 46.77
[2024-09-08 07:44] LABS: % Basophils 0.3 % (0-2); % Eosinophils 0.1 % (0-6); % Lymphocytes 1.5 % (20.5-51.1); % Monocytes 5.5 % (1.7-9.3); % Neutrophils 91.6 % (42.2-75.2); Absolute Basophils 0.1 10^3/uL (0-0.2); Absolute Immature Granulocytes 0.2 10^3/uL (0-0.05); Absolute Lymphocytes 0.2 10^3/uL (1.2-3.4); Absolute Monocytes 0.9 10^3/uL (0.1-0.6); Absolute Neutrophils 14.6 10^3/uL (1.4-6.5); Hematocrit 42.1 % (39.0-52.0); Mean Corp Hgb Conc. 35.6 g/dL (33.0-37.0); Mean Corpuscular Volume 89.8 fL (80.0-94.0); Nucleated Red Blood Cells % 0 % (-); Red Blood Cell Count 4.69 10^6/uL (4.70-6.10); Red Cell Dist. Width 12.8 % (11.5-14.5); White Blood Cell Count 15.9 10^3/uL (4.8-10.8)
[2024-09-08] MEDS: ASPIR LOW (ENTERIC COATED) 81 MG PO (08:14)
[2024-09-08] MEDS: HEPARIN 5000 UNITS SC ×2 (08:16→20:21)
[2024-09-08] MEDS: LIDOCAINE 4% PATCH 1 PATCH TOPICAL (08:16)
[2024-09-08] MEDS: ULTRAM 50 MG PO ×3 (08:17→21:28)
[2024-09-08] MEDS: TOPROL XL 25 MG PO (08:17)
[2024-09-08] MEDS: NORVASC 5 MG PO (08:17)
[2024-09-08 09:04] LABS: Mean Platelet Volume 10.9 fL (7.4-10.4); Platelet Count 87 10^3/uL (130-400)
--- NOTE | 2024-09-08 09:53 | CON.ID ---
Consultation
-
Date/Time Consultation Requested: 09/08/24 8:16
Date/Time Consultation Performed: 09/08/24 10:28
Requesting Provider: Dr Nino
Performing Provider: Dr Chow
Reason for Consultation: left shoulder pain
Chief Complaint / Past History
Chief Complaint
aspiration pneumonia
History of Present Illness
Mr Claros is an 78 year old male with history of FELISHA 09/05 for follow up post watchman placement 3 months previously he was on his left side for the procedure and then represented here 09/07 for L shoulder pain, subjective chills. Reports
intermittent chronic cough that he attributes to sinus infections. Denies any chest pain, shortness of breath, lightheadedness, cough, nausea, vomiting, diarrhea or dysuria. No rashes or skin tears.
Since arrival here he has been afebrile, bp overall stable on 2L NC saturating 93%, wbc on arrival 16.4 now 15.9, hgb 15, plt 87, L shfit is noted, cr baseline 1.5 and was 1.5 on arrival, lactic acid 1.9, 09/07 CT chest with IV contrast: LLL/inferior
aspiration pneumonia, emphysema, blood cultures x2 from arrival both with GNR, repeat blood cultures x2 were done today
Past History
Additional Past Medical History:
Persistent atrial fibrillation, status post FELISHA-guided cardioversion, 01/2024, and FARAPULSE atrial fibrillation and Watchman implant 05/2024;
Hypertension.
Coronary artery disease.
Sinus bradycardia.
Congestive heart failure, preserved ejection fraction.
Small PFO per FELISHA 01/2024.
Chronic kidney disease stage III.
GERD.
Bilateral renal cysts.
Restless leg syndrome.
Osteoarthritis.
Chronic pain syndrome with opioid dependence.
Hematuria, 02/2024, likely secondary to chronic oral anticoagulation and prior Aspirin use.
Obesity, BMI 34.0.
Remote history of tobacco abuse.
Daily alcohol.
Additional Past Surgical History:
Atrial fibrillation ablation and Watchman implant.
FELISHA-guided cardioversion.
Left inguinal hernia repair.
Pilonidal cystectomy.
Tonsillectomy.
Dental implantation.
Allergy History:
No Known Drug Allergies Allergy (Verified 09/07/24 04:48)
Unknown
Medications Reviewed: Yes
Social History
Tobacco: Former Smoker
Alcohol: Daily
Personal:
Family History
Family History: Not Pertinent
Review of Systems
Review of Systems
General: Chills
All systems: All other systems were reviewed and were negative
Vital Signs
Temp Pulse Resp BP Pulse Ox
98.7 F 83 18 131/73 93
09/08/24 07:20 09/08/24 07:20 09/08/24 07:20 09/08/24 07:20 09/08/24 07:20
Physical Exam
Physical Exam
Constitutional: No Acute Distress and Obese
Cardiovascular: Regular Rate and S1/S2; Negative Murmur or Rub
Pulmonary: Clear and Symmetric; Negative Wheezes, Rales or Rhonchi
Gastrointestinal: Soft, Non Tender, Non Distended and Normal Bowel Sounds
Skin: Warm and Dry; Negative Rash or Jaundice
Lab / Diagnostic Study Results
09/08/24 06:50
09/08/24 06:50
Abs Immat Gran (auto) 0.2 10^3/uL (0-0.05) H 09/08/24 06:50
Absolute Neuts (auto) 14.6 10^3/uL (1.4-6.5) H 09/08/24 06:50
Absolute Lymphs (auto) 0.2 10^3/uL (1.2-3.4) L 09/08/24 06:50
Absolute Monos (auto) 0.9 10^3/uL (0.1-0.6) H 09/08/24 06:50
Absolute Basos (auto) 0.1 10^3/uL (0-0.2) 09/08/24 06:50
Immature Gran % 1.0 % (0-0.5) H 09/08/24 06:50
Neutrophils % 91.6 % (42.2-75.2) H 09/08/24 06:50
Lymphocytes % 1.5 % (20.5-51.1) L 09/08/24 06:50
Monocytes % 5.5 % (1.7-9.3) 09/08/24 06:50
Eosinophils % 0.1 % (0-6) 09/08/24 06:50
Basophils % 0.3 % (0-2) 09/08/24 06:50
Lactic Acid Cancelled 09/07/24 11:15
Microbiology Results
Micro:
09/08/24 09:43 Blood Culture - Pending
Blood/Venous
09/08/24 09:04 Blood Culture - Pending
Blood/Venous
09/07/24 07:08 Blood Culture - Preliminary
Blood/Venous Positive culture in progress
Gram Stain - Preliminary
09/07/24 07:24 Blood Culture - Preliminary
Blood/Venous Positive culture in progress
Gram Stain - Preliminary
Assessment / Plan
GNR Bacteremia
Aspiration Pneumonia
CKD
- repeat blood cultures x2 in progress
- await ID of the isolate
- agree with empiric unasyn
- follow clinically
--- NOTE | 2024-09-08 11:08 | W.PN.HOSP.TC ---
Today's Communication/Plan
-
Continue with IV antibiotics and follow-up on the blood culture data
Continue with pain management
Assessment / Plan
Assessment / Plan
#Left shoulder pain secondary to positional and osteoarthritis
Continue with lidocaine patch
Tylenol as needed
Ice pack if needed
X-rays with arthritis
#Acute hypoxic respiratory insufficiency secondary to aspiration pneumonia and gram negative bacteremia
#Sepsis POA
# Chronic elevation of right hemidiaphragm
# Mild bilateral upper lobe emphysema
Wean oxygen as tolerated
Start patient on IV Unasyn
Sputum sample if able to provide sample
Lactic acid normal
Speech therapy evaluation
Follow-up on admit patient was updated with all
Repeat blood cultures
Trend WBC.
ID evaluation
#Elevated troponin likely secondary to recent Watchman device and FELISHA
Troponin down trended.
Currently without any chest pain. Did not have chest pain at home
#CKD stage III
Monitor creatinine. Currently at baseline.
Monitor creatinine and patient did receive IV contrast on admission. Hold Lasix and lisinopril for additional 24 hours
#Persistent atrial fibrillation status post Watchman device
Continue with metoprolol
Not on anticoagulation post Watchman device
#CAD
Chronic HFpEF
Continue with aspirin, beta-conchis, statin
Hold Lasix in the setting of sepsis
#Primary hypertension
Continue with Norvasc, and metoprolol
Holding Lasix for now
#Hyperlipidemia
Continue with statin
#Osteoarthritis
#Chronic opiate usage on daily basis
Tylenol as needed
Continue tramadol home regimen
Bowel regimen if needed
#Hyperkalemia
Replete as needed
Prophylaxis with heparin
Full code
Anticipated Discharge: > 48 hours
Subjective/Interval History
-
Date of Service: September 08, 2024
states of shoulder pain -alleviates w/pain meds
Objective Data
-
Labs:
Laboratory Results
09/08/24
06:50
WBC 15.9 H
Hgb 15.0
Hct 42.1
Plt Count 87 L D
Sodium 135
Potassium 4.0
Chloride 101
Carbon Dioxide 26
BUN 35 H
Creatinine 1.5 H
Glucose 121 H
Calcium 9.6
Vital Signs:
Vital Signs
Temp Pulse Resp BP Pulse Ox
98.7 F 83 18 131/73 93
09/08/24 07:20 09/08/24 07:20 09/08/24 07:20 09/08/24 07:20 09/08/24 07:20
I&O
09/07/24 09/08/24 09/09/24
06:59 06:59 06:59
Intake Total 600 / 600
Output Total 100 / 100
Balance 500 / 500
Physical Exam
-
General: Well Developed, Well Nourished and No Apparent Distress
Respiratory: Clear to Auscultation
Cardiac: Regular Rhythm and S1/S2
GI: Soft, Nontender, Nondistended and Normal Bowel Sounds
Musculoskeletal: Edema, Right Lower Extrem, Edema, Left Lower Extrem and Other (L shoulder lido patch noted. No erythema or swelling. )
Skin: Warm and Dry
Neuro: Awake, Alert, Oriented and AO x 3
Psych: Calm
Data Reviewed
-
Total Time Spent with Patient (in minutes): 55
[2024-09-08] MEDS: PROTONIX 40 MG PO (12:30)
--- NOTE | 2024-09-08 15:05 | CM ---
parking manager reviewed patient's chart and met with patient and patient lives with spouse in a multilevel home with elevator, patient is independent with adl's and ambulation, occasionally uses a cane, home when stable, no needs.
PCP: Dr. Feng
Pharmacy: [facility] in [place]
Plan; Home when stable, will follow for any VN needs at discharge.
[2024-09-08] MEDS: LIPITOR 10 MG PO (21:28)
[2024-09-09] MEDS: UNASYN IV ×2 (01:59→08:59)
[2024-09-09] MEDS: FLUSH (NSS) 2 FLUSH IV ×2 (02:00→19:40)
[2024-09-09 03:07] VITALS: BP 158/83
[2024-09-09 06:00] VITALS: BMI 33.7
[2024-09-09 06:26] LABS: % Basophils 0.1 % (0-2); % Eosinophils 0.6 % (0-6); % Immature Granulocytes 1.2 % (0-0.5); % Lymphocytes 1.5 % (20.5-51.1); % Monocytes 8.4 % (1.7-9.3); % Neutrophils 88.2 % (42.2-75.2); Absolute Eosinophils 0.1 10^3/uL (0-0.7); Absolute Immature Granulocytes 0.2 10^3/uL (0-0.05); Absolute Lymphocytes 0.2 10^3/uL (1.2-3.4); Absolute Monocytes 1.1 10^3/uL (0.1-0.6); Hematocrit 41.3 % (39.0-52.0); Hemoglobin 14.2 g/dL (13.0-18.0); Mean Corp Hgb Conc. 34.4 g/dL (33.0-37.0); Mean Corpuscular Hgb 31.4 pg (27.0-31.0); Mean Corpuscular Volume 91.4 fL (80.0-94.0); Mean Platelet Volume 11.1 fL (7.4-10.4); Nucleated Red Blood Cells % 0 % (-); Platelet Count 75 10^3/uL (130-400); Red Blood Cell Count 4.52 10^6/uL (4.70-6.10); Red Cell Dist. Width 12.8 % (11.5-14.5); White Blood Cell Count 13.6 10^3/uL (4.8-10.8)
[2024-09-09 06:47] LABS: Blood Urea Nitrogen 38 mg/dl (9-20); Calcium 9.3 mg/dl (8.4-10.2); Carbon Dioxide 28 mmol/L (22-30); Chloride 101 mmol/L (98-107); Estimated Creatinine Clearance 44 ml/min; Glucose 144 mg/dl (70-99); Potassium 3.8 mmol/L (3.5-5.1); Sodium 136 mmol/L (135-145); eGFR 46.77
[2024-09-09 07:10] VITALS: BP 137/81
[2024-09-09] MEDS: TOPROL XL 25 MG PO (08:59)
[2024-09-09] MEDS: LIDOCAINE 4% PATCH 1 PATCH TOPICAL (08:59)
[2024-09-09] MEDS: ULTRAM 50 MG PO ×3 (08:59→22:14)
[2024-09-09] MEDS: NORVASC 5 MG PO (08:59)
[2024-09-09] MEDS: ASPIR LOW (ENTERIC COATED) 81 MG PO (08:59)
[2024-09-09] MEDS: PROTONIX 40 MG PO (08:59)
[2024-09-09] MEDS: HEPARIN 5000 UNITS SC (09:00)
[2024-09-09 09:05] VITALS: BP 155/87
--- NOTE | 2024-09-09 10:16 | W.PN.ID1 ---
Date of Service
Date of Service: September 09, 2024
Today's Communication
- start cefazolin stop unasyn
- would be unusual for gram negative to disseminate, there is a likely source given aspiration
- follow clinically
Assessment / Plan
Klebsiella Bacteremia
Aspiration Pneumonia
CKD
Watchman implant 06/12
- repeat blood cultures x2 resent
- start cefazolin stop unasyn
- would be unusual for gram negative to disseminate, there is a likely source given aspiration
- follow clinically
Chief Complaint
-: Bacteremia
Subjective / Review of Systems
afebrile
bp stable
no events overnight
tolerating current therapies
Vital Signs / Physical Exam
Vital Signs
Vital Signs
Temp Pulse Resp BP Pulse Ox
98.1 F 66 16 137/81 95
09/09/24 07:10 09/09/24 07:10 09/09/24 07:10 09/09/24 08:59 09/09/24 09:28
Physical Exam
Constitutional: No Acute Distress
Cardiovascular: Regular Rate and S1/S2; Negative Murmur or Rub
Pulmonary: Clear and Symmetric; Negative Wheezes or Rales
Gastrointestinal: Soft, Non Tender, Non Distended and Normal Bowel Sounds
Skin: Warm and Dry; Negative Rash or Jaundice
Objective Data
Lab Data
Lab Results
09/09/24 05:36
09/09/24 05:36
Estimated Creat Clear 44 ml/min 09/09/24 05:36
Lactic Acid Cancelled 09/07/24 11:15
Most recent labs reviewed.
Organism 1 Klebsiella oxytoca
1. Klebsiella oxytoca
M.I.C. RX
--------- ---
Amoxicillin/Potas. Clavulanate <=8/4 S
Ampicillin >16 R
Ampicillin/Sulbactam <=4/2 S
Aztreonam <=4 S
Cefazolin <=2 S
Ertapenem <=0.5 S
Ciprofloxacin <=0.25 S
Gentamicin <=2 S
Meropenem <=1 S
Piperacillin/Tazobactam <=8 S
Tetracycline <=4 S
Tobramycin <=2 S
Trimethoprim/Sulfamethoxazole <=2/38 S
Micro Results:
09/08/24 09:04 Blood Culture - Preliminary
Blood/Venous No Growth in 24 hours- Final report to follow
09/07/24 07:08 Blood Culture - Preliminary
Blood/Venous Klebsiella oxytoca
Gram Stain - Final
09/07/24 07:24 Blood Culture - Preliminary
Blood/Venous Klebsiella oxytoca
Gram Stain - Final
09/08/24 09:43 Blood Culture - Preliminary
Blood/Venous Positive culture in progress
Gram Stain - Preliminary
--- NOTE | 2024-09-09 10:18 | W.PN.HOSP.TC ---
Addendum entered and electronically signed by Emilio Nino MD 09/09/24 14:17:
Pt with thrombocytopenia ?likely due to bacteremia.
hold hep sc
trend cbc
Original Note:
Today's Communication/Plan
-
Surveillance cultures remain positive
Repeat cultures
UA
Continue with IV Unasyn
Assessment / Plan
Assessment / Plan
#Left shoulder pain secondary to positional and osteoarthritis
Continue with lidocaine patch
Tylenol as needed
Ice pack if needed
Pain control
X-rays with mild osteoarthritis of the left AC joint. 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
#Acute hypoxic respiratory insufficiency secondary to aspiration pneumonia and Klebsiella
#Sepsis POA
# Chronic elevation of right hemidiaphragm
# Mild bilateral upper lobe emphysema
Wean oxygen as tolerated
Start patient on IV Unasyn
Sputum sample if able to provide sample
Lactic acid normal
Speech therapy evaluation passed swallow eval
Surveillance culture remains positive
Initial culture identification susceptibility noted
Remains afebrile. Improvement in WBC.
Wean off oxygen as tolerated. Incentive spirometry.
#Elevated troponin likely secondary to recent Watchman device and FELISHA
Troponin down trended.
Currently without any chest pain. Did not have chest pain at home
#CKD stage III
Monitor creatinine. Currently at baseline.
Monitor creatinine and patient did receive IV contrast on admission. Hold lisinopril for additional 24 hours
#Persistent atrial fibrillation status post Watchman device
Continue with metoprolol
Not on anticoagulation post Watchman device
#CAD
Chronic HFpEF
Continue with aspirin, beta-conchis, statin
Restart Lasix
#Primary hypertension
Continue with Norvasc, and metoprolol
Restart Lasix. Blood pressure controlled.
#Hyperlipidemia
Continue with statin
#Osteoarthritis
#Chronic opiate usage on daily basis
Tylenol as needed
Continue tramadol home regimen
Bowel regimen if needed
#Hyperkalemia
Replete as needed
DVT Prophylaxis with heparin
Full code
Anticipated Discharge: > 48 hours
Subjective/Interval History
-
Date of Service: September 09, 2024
states L shoulder pain has improved
worked with Pt earlier today
Objective Data
-
Labs:
Laboratory Results
09/09/24
05:36
WBC 13.6 H
Hgb 14.2
Hct 41.3
Plt Count 75 L
Sodium 136
Potassium 3.8
Chloride 101
Carbon Dioxide 28
BUN 38 H
Creatinine 1.5 H
Glucose 144 H
Calcium 9.3
Vital Signs:
Vital Signs
Temp Pulse Resp BP Pulse Ox
98.1 F 66 16 137/81 95
09/09/24 07:10 09/09/24 07:10 09/09/24 07:10 09/09/24 08:59 09/09/24 09:28
I&O
09/08/24 09/09/24 09/10/24
06:59 06:59 06:59
Intake Total 600 / 600 240 / 240
Output Total 100 / 100
Balance 500 / 500 240 / 240
Data Reviewed
-
Total Time Spent with Patient (in minutes): 55
[2024-09-09 11:05] VITALS: BP 128/68
[2024-09-09] MEDS: ANCEF 10 IV ×2 (13:02→19:36)
[2024-09-09] MEDS: ROXICODONE 5 MG PO ×3 (14:21→23:35)
[2024-09-09 14:35] LABS: Urine Albumin 2+ (Neg - Trace); Urine Bilirubin Negative (Negative); Urine Character Clear (Clear); Urine Color Yellow; Urine Glucose Negative (Negative); Urine Ketone Negative (Negative); Urine Leukocyte Negative (Negative); Urine Nitrite Negative (Negative); Urine Occult Blood Negative (Negative); Urine Urobilinogen Negative (Neg - 1+)
[2024-09-09 14:43] LABS: Urine Amorphous Seen; Urine Bacteria Many (Negative); Urine Red Blood Cell 0-2 /HPF (0-2); Urine Squamous Cell 0-2 /LPF (Few); Urine White Cell 0-2 /HPF (0-5)
[2024-09-09 15:10] VITALS: BP 152/82
[2024-09-09] MEDS: LIPITOR 10 MG PO (22:15)
[2024-09-09 23:20] VITALS: BP 163/87
[2024-09-10] MEDS: FLUSH (NSS) 2 FLUSH IV (03:52)
[2024-09-10] MEDS: ANCEF 10 IV ×3 (03:52→22:13)
[2024-09-10] MEDS: ROXICODONE 5 MG PO ×2 (03:57→10:17)
[2024-09-10 06:00] VITALS: BMI 33.4
[2024-09-10 06:40] LABS: Blood Urea Nitrogen 38 mg/dl (9-20); Calcium 9.1 mg/dl (8.4-10.2); Carbon Dioxide 29 mmol/L (22-30); Chloride 100 mmol/L (98-107); Estimated Creatinine Clearance 50 ml/min; Glucose 163 mg/dl (70-99); Potassium 3.8 mmol/L (3.5-5.1); Sodium 135 mmol/L (135-145); eGFR 55.53
--- NOTE | 2024-09-10 06:47 | PTCARENOTE ---
Patient has a slightly swollen area on his upper left chest that improved with a cold pack. He said it was worse after activity related to his shoulder.
[2024-09-10 06:57] LABS: % Basophils 0.2 % (0-2); % Eosinophils 0.3 % (0-6); % Immature Granulocytes 0.8 % (0-0.5); % Lymphocytes 1.8 % (20.5-51.1); % Neutrophils 88.9 % (42.2-75.2); Absolute Immature Granulocytes 0.1 10^3/uL (0-0.05); Absolute Lymphocytes 0.2 10^3/uL (1.2-3.4); Absolute Monocytes 1.1 10^3/uL (0.1-0.6); Absolute Neutrophils 11.7 10^3/uL (1.4-6.5); Hematocrit 40.2 % (39.0-52.0); Hemoglobin 13.9 g/dL (13.0-18.0); Mean Corp Hgb Conc. 34.6 g/dL (33.0-37.0); Mean Corpuscular Hgb 31.5 pg (27.0-31.0); Mean Corpuscular Volume 91.2 fL (80.0-94.0); Mean Platelet Volume 10.6 fL (7.4-10.4); Nucleated Red Blood Cells % 0 % (-); Platelet Count 82 10^3/uL (130-400); Red Blood Cell Count 4.41 10^6/uL (4.70-6.10); Red Cell Dist. Width 12.6 % (11.5-14.5); White Blood Cell Count 13.2 10^3/uL (4.8-10.8)
[2024-09-10 07:17] VITALS: BP 158/86
--- NOTE | 2024-09-10 07:23 | W.PN.HOSP.TC ---
Today's Communication/Plan
-
Continue antibiotic.
obtain Ct left shoulder
Assessment / Plan
Assessment / Plan
Impression:
78-year-old male past medical history of A-fib status post Watchman device underwent FELISHA last week presenting with fever chills and left shoulder pain.��Found to have aspiration pneumonia and also with gram-negative bacteremia.��On IV
antibiotics.��ID following.��Since still persistent bacteremia will obtain left shoulder CT scan with IV contrast.
Assessment/plan:
Severe sepsis with acute organ dysfunction/Klebsiella bacteremia.
Source of infection is aspiration pneumonia/with Klebsiella bacteremia.
Acute organ dysfunction in form of acute hypoxic respiratory failure.
Patient meets sepsis criteria on admission
Heart rate 91-94 on day of admission
WBCs 16.4 on day of
Respiratory rate up to 28 dated
No documented fever.
Lactic acid 1.9
Source of infection is aspiration pneumonia
IV fluid
Patient initially started on Unasyn, infectious disease switched antibiotic to cefazolin.
Blood culture 09/07 2/2 bottles Klebsiella oxytoca.
Blood culture 09/08 2/2 bottles positive.
Blood culture 09/09 1/2 bottles positive.
Blood culture 09/10 pending
Urine culture pending
Appreciate infectious disease input.
WBCs improved
CT left shoulder pending
Acute hypoxic respiratory insufficiency secondary to aspiration pneumonia
Mild bilateral upper lobe emphysema
Wean oxygen as tolerated
Continue antibiotic
Sputum sample if able to provide sample
Speech therapy evaluation ---> passed swallow eval
Incentive spirometry.
Left shoulder pain secondary to positional and osteoarthritis
Continue with lidocaine patch
Tylenol as needed
Ice pack if needed
Pain control
X-rays with mild osteoarthritis of the left AC joint. 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
09/10
CT left shoulder pending.
Elevated troponin likely secondary to recent Watchman device and FELISHA
Troponin down trended.
Currently without any chest pain. Did not have chest pain at home
CKD stage III
Monitor creatinine. Currently at baseline.
Monitor creatinine and patient did receive IV contrast on admission. Hold lisinopril for additional 24 hours
Persistent atrial fibrillation status post Watchman device
Continue with metoprolol
Not on anticoagulation post Watchman device
Coronary artery disease
Chronic HFpEF
Continue with aspirin, beta-conchis, statin
Restart Lasix
Primary hypertension
Continue with Norvasc, and metoprolol
Restart Lasix. Blood pressure controlled.
Hyperlipidemia
Continue with statin
Osteoarthritis
Chronic opiate usage on daily basis
Tylenol as needed
Continue tramadol home regimen
Bowel regimen if needed
Hypokalemia
Replete as needed
CODE STATUS: Full code
DVT prophylaxis: Heparin
Diet: Cardiac diet.
Total time spent on today's encounter was 65 minutes which included time spent in counseling the patient/family regarding diagnosis and treatment plan as listed above, goals of care, and symptom management. Case was discussed with nursing staff,
specialists, and care coordinators/case management. All labs and imaging personally reviewed by me. Remainder the time spent in detailed review of previous records, lab data, imaging, and other medical provider documentation.
Anticipated Discharge: > 48 hours
Subjective/Interval History
-
Date of Service: September 10, 2024
Patient seen and examined at bedside, improved shortness of breath and coughing but patient still complaining of left shoulder pain, and slight left upper chest wall swelling.
Discussed with ID, will obtain CT shoulder with IV contrast.
Otherwise patient denies abdominal pain, no nausea, no vomiting, no diarrhea or constipation.
Objective Data
-
Labs:
Laboratory Results
09/10/24
05:54
WBC 13.2 H
Hgb 13.9
Hct 40.2
Plt Count 82 L
Sodium 135
Potassium 3.8
Chloride 100
Carbon Dioxide 29
BUN 38 H
Creatinine 1.3
Glucose 163 H
Calcium 9.1
Vital Signs:
Vital Signs
Temp Pulse Resp BP Pulse Ox
98 F 75 17 158/86 96
09/10/24 07:17 09/10/24 07:17 09/10/24 07:17 09/10/24 07:17 09/10/24 07:17
I&O
09/09/24 09/10/24 09/11/24
06:59 06:59 06:59
Intake Total 240 / 240 1260 / 1260
Output Total 250 / 250
Balance 240 / 240 1010 / 1010
Physical Exam
-
General: Well Developed, Well Nourished, No Apparent Distress and Comfortable
HEENT: Normocephalic, Atraumatic, Moist Mucous Membranes, No Ptosis, PERRLA and Nose Appears Normal
Respiratory: Rales, Rhonchi and Non Labored Respirations
Cardiac: Regular Rhythm and S1/S2
Breast: Deferred by me
GI: Soft, Nontender, Nondistended and Normal Bowel Sounds
Genito-urinary: No Costovertebral Tender
Musculoskeletal: No Clubbing, No Cyanosis, No Edema and Other (Left shoulder limitation of movement, tender left shoulder and left upper chest wall.)
Skin: Warm
Neuro: Awake, Alert, Oriented, AO x 3 and No Motor Deficits
Psych: Calm
Data Reviewed
-
Diagnostic Radiology: Image personally visualized and interpreted and Report Reviewed by me
CT Scan: Image personally visualized and interpreted and Report Reviewed by me
Ultrasound: Image personally visualized and interpreted and Report Reviewed by me
MRI: Image personally visualized and interpreted and Report Reviewed by me
Medical Tests (Nuc Med, Echo etc): Image personally visualized and interpreted and Report Reviewed by me
Labs: Labs Reviewed by me
Old Records: Reviewed
[2024-09-10] MEDS: ULTRAM 50 MG PO ×2 (08:13→22:13)
[2024-09-10] MEDS: LASIX 40 MG PO (08:14)
[2024-09-10] MEDS: NORVASC 5 MG PO (08:14)
[2024-09-10] MEDS: LIDOCAINE 4% PATCH 1 PATCH TOPICAL (08:14)
[2024-09-10] MEDS: PROTONIX 40 MG PO (08:14)
[2024-09-10] MEDS: TOPROL XL 25 MG PO (08:14)
[2024-09-10] MEDS: ASPIR LOW (ENTERIC COATED) 81 MG PO (08:14)
--- NOTE | 2024-09-10 13:56 | W.PN.ID1 ---
Date of Service
Date of Service: September 10, 2024
Today's Communication
- CT chest with mild pneumonia - unlikely to be the cause of sustained bacteremia
- TTE
- repeat blood cultures x2 resent again today
- c/w cefazolin
Assessment / Plan
Klebsiella Bacteremia - persistent
Aspiration Pneumonia
CKD
Watchman implant 06/12
- agree with CT L shoulder - if effusion/inflammation would consult orthopedics for possible joint aspiration
- CT chest with mild pneumonia - unlikely to be the cause of sustained bacteremia
- TTE
- repeat blood cultures x2 resent again today
- c/w cefazolin
- follow clinically
Chief Complaint
-: Bacteremia
Subjective / Review of Systems
afebrile
bp stable
tolerating current therapies
ongoing L shoulder pain
Vital Signs / Physical Exam
Vital Signs
Vital Signs
Temp Pulse Resp BP Pulse Ox
98 F 75 17 158/86 96
09/10/24 07:17 09/10/24 08:14 09/10/24 07:17 09/10/24 08:14 09/10/24 08:00
Physical Exam
Constitutional: No Acute Distress and Chronically Ill
Cardiovascular: Regular Rate and S1/S2; Negative Murmur or Rub
Pulmonary: Clear and Symmetric; Negative Wheezes or Rales
Gastrointestinal: Soft, Non Tender, Non Distended and Normal Bowel Sounds
Extremities: Other (ice pack on the L shoulder)
Skin: Warm and Dry; Negative Rash or Jaundice
Neurological: Awake
Objective Data
Lab Data
Lab Results
09/10/24 05:54
09/10/24 05:54
Estimated Creat Clear 50 ml/min 09/10/24 05:54
Lactic Acid Cancelled 09/07/24 11:15
Most recent labs reviewed.
Micro Results:
09/08/24 09:04 Blood Culture - Preliminary
Blood/Venous Klebsiella oxytoca
Gram Stain - Preliminary
09/10/24 10:37 Blood Culture - Pending
Blood/Venous
09/09/24 10:36 Blood Culture - Preliminary
Blood/Venous No Growth in 24 hours- Final report to follow
09/10/24 09:59 Blood Culture - Pending
Blood/Venous
09/09/24 14:26 Urine Culture - Final
Urine NO GROWTH
09/08/24 09:43 Blood Culture - Preliminary
Blood/Venous Klebsiella oxytoca
Gram Stain - Preliminary
09/07/24 07:08 Blood Culture - Final
Blood/Venous Klebsiella oxytoca
Gram Stain - Final
09/07/24 07:24 Blood Culture - Final
Blood/Venous Klebsiella oxytoca
Gram Stain - Final
09/09/24 11:40 Blood Culture - Preliminary
Blood/Venous Positive culture in progress
Gram Stain - Preliminary
Care Review
Plan reviewed with: Physician (Dr Vidales - MI shoulder)
[2024-09-10 15:00] VITALS: BP 136/78
[2024-09-10] MEDS: ULTRAM PO (17:00)
[2024-09-10] MEDS: LIPITOR 10 MG PO (22:13)
[2024-09-10 23:08] VITALS: BP 146/72
[2024-09-11] MEDS: ROXICODONE 5 MG PO ×3 (00:12→22:46)
[2024-09-11] MEDS: ANCEF 10 IV ×3 (05:07→21:00)
[2024-09-11] MEDS: TYLENOL 650 MG PO (05:16)
[2024-09-11 06:00] VITALS: BMI 33.3
[2024-09-11 07:05] VITALS: BP 143/69
[2024-09-11 07:45] LABS: Hematocrit 39.2 % (39.0-52.0); Hemoglobin 14.1 g/dL (13.0-18.0); Mean Corpuscular Hgb 32.3 pg (27.0-31.0); Mean Corpuscular Volume 89.7 fL (80.0-94.0); Mean Platelet Volume 11.2 fL (7.4-10.4); Platelet Count 102 10^3/uL (130-400); Red Blood Cell Count 4.37 10^6/uL (4.70-6.10); Red Cell Dist. Width 12.6 % (11.5-14.5); White Blood Cell Count 11.9 10^3/uL (4.8-10.8)
[2024-09-11 07:53] LABS: Blood Urea Nitrogen 37 mg/dl (9-20); Calcium 9.2 mg/dl (8.4-10.2); Carbon Dioxide 28 mmol/L (22-30); Chloride 100 mmol/L (98-107); Estimated Creatinine Clearance 50 ml/min; Glucose 140 mg/dl (70-99); Potassium 3.5 mmol/L (3.5-5.1); Sodium 136 mmol/L (135-145); eGFR 55.53
[2024-09-11] MEDS: PROTONIX 40 MG PO (08:01)
[2024-09-11] MEDS: NORVASC 5 MG PO (08:01)
[2024-09-11] MEDS: LASIX 40 MG PO (08:09)
[2024-09-11] MEDS: ASPIR LOW (ENTERIC COATED) 81 MG PO (08:09)
[2024-09-11] MEDS: TOPROL XL 25 MG PO (08:09)
[2024-09-11] MEDS: LIDOCAINE 4% PATCH 1 PATCH TOPICAL (08:10)
[2024-09-11] MEDS: ULTRAM 50 MG PO ×3 (08:10→21:00)
[2024-09-11 09:50] VITALS: BP 152/70; PULSE 66; O2SAT 94
--- NOTE | 2024-09-11 09:50 | W.PN.ID1 ---
Date of Service
Date of Service: September 11, 2024
Today's Communication
- CT L shoulder - suspected contusion of the L shoulder
- CT chest with mild pneumonia 09/07 - unlikely to be the cause of sustained bacteremia
- await TTE
- repeat blood cultures from 08/11 - no growth to date; if these become positive would obtain CT c/a/p with IV and oral contrast
- c/w cefazolin
Assessment / Plan
Klebsiella Bacteremia - persistent x 48 hours
Aspiration Pneumonia
CKD
Watchman implant 06/12 - denies any other hardwear
No prior colonoscopy - reports hes had serial FIT testing
- CT L shoulder - suspected contusion of the L shoulder
- CT chest with mild pneumonia 09/07 - unlikely to be the cause of sustained bacteremia
- await TTE
- repeat blood cultures from 08/11 - no growth to date; if these become positive would obtain CT c/a/p with IV and oral contrast
- c/w cefazolin
- follow clinically
Chief Complaint
-: Bacteremia
Subjective / Review of Systems
afebrile
bp stable
tolerating current therapies
Vital Signs / Physical Exam
Vital Signs
Vital Signs
Temp Pulse Resp BP Pulse Ox
98.3 F 66 16 143/69 96
09/11/24 07:05 09/11/24 08:01 09/11/24 07:05 09/11/24 08:01 09/11/24 09:37
Physical Exam
Constitutional: No Acute Distress and Chronically Ill
Cardiovascular: Regular Rate and S1/S2; Negative Murmur or Rub
Pulmonary: Clear and Symmetric; Negative Wheezes or Rales
Gastrointestinal: Soft, Non Tender, Non Distended and Normal Bowel Sounds
Skin: Warm and Dry; Negative Rash or Jaundice
Objective Data
Lab Data
Lab Results
09/11/24 06:11
09/11/24 06:11
Estimated Creat Clear 50 ml/min 09/11/24 06:11
Lactic Acid Cancelled 09/07/24 11:15
Most recent labs reviewed.
Micro Results:
09/09/24 11:40 Blood Culture - Preliminary
Blood/Venous Klebsiella oxytoca
Gram Stain - Preliminary
09/09/24 10:36 Blood Culture - Preliminary
Blood/Venous Klebsiella oxytoca
Gram Stain - Preliminary
09/08/24 09:04 Blood Culture - Preliminary
Blood/Venous Klebsiella oxytoca
Gram Stain - Preliminary
09/10/24 10:37 Blood Culture - Pending
Blood/Venous
09/10/24 09:59 Blood Culture - Pending
Blood/Venous
09/09/24 14:26 Urine Culture - Final
Urine NO GROWTH
09/08/24 09:43 Blood Culture - Preliminary
Blood/Venous Klebsiella oxytoca
Gram Stain - Preliminary
09/07/24 07:08 Blood Culture - Final
Blood/Venous Klebsiella oxytoca
Gram Stain - Final
09/07/24 07:24 Blood Culture - Final
Blood/Venous Klebsiella oxytoca
Gram Stain - Final
CT Scan: Image Reviewed and Report Reviewed (suggestion of muscle strain vs contuosion in the L pectoralis )
--- NOTE | 2024-09-11 09:53 | W.PN.HOSP.TC ---
Today's Communication/Plan
-
TTE
Assessment / Plan
Assessment / Plan
Impression:
78-year-old male past medical history of A-fib status post Watchman device underwent FELISHA last week presenting with fever chills and left shoulder pain.��Found to have aspiration pneumonia and also with gram-negative bacteremia.��On IV
antibiotics.��ID following.��Since still persistent bacteremia.
left shoulder CT scan with IV contrast showed:
No osseous fracture. No shoulder dislocation or separation.
Minor degenerative changes, including subtle calcific tendinosis of the peripheral/insertional supraspinatus tendon.
As far as visualized, no peripherally enhancing mass or collection to suggest abscess. No radiographic evidence to suggest osteomyelitis.
Progressive fusiform thickening of the left pectoralis major muscle especially medially, with associated mild soft tissue stranding of the subcutaneous fat. This could suggest soft tissue injury, such as muscle strain or contusion in the proper
clinical setting
Assessment/plan:
Severe sepsis with acute organ dysfunction/Klebsiella bacteremia.
Source of infection is aspiration pneumonia/with Klebsiella bacteremia.
Acute organ dysfunction in form of acute hypoxic respiratory failure.
Patient meets sepsis criteria on admission
Heart rate 91-94 on day of admission
WBCs 16.4 on day of
Respiratory rate up to 28 dated
No documented fever.
Lactic acid 1.9
Source of infection is aspiration pneumonia
IV fluid
Patient initially started on Unasyn, infectious disease switched antibiotic to cefazolin.
Blood culture 09/07 2/2 bottles Klebsiella oxytoca.
Blood culture 09/08 2/2 bottles positive.
Blood culture 09/09 1/2 bottles positive.
Blood culture 09/10 pending
Urine culture pending
Appreciate infectious disease input.
WBCs improved
CT left shoulder shows no evidence of abscess or osteomyelitis.
TTE pending
Acute hypoxic respiratory insufficiency secondary to aspiration pneumonia
Mild bilateral upper lobe emphysema
Wean oxygen as tolerated
Continue antibiotic
Sputum sample if able to provide sample
Speech therapy evaluation ---> passed swallow eval
Incentive spirometry.
Left shoulder pain secondary to positional and osteoarthritis
Left upper chest wall pain
Left pectoralis major muscle strain/contusion
Continue with lidocaine patch
Tylenol as needed
Ice pack if needed
Pain control
X-rays with mild osteoarthritis of the left AC joint. 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
left shoulder CT scan with IV contrast showed:
No osseous fracture. No shoulder dislocation or separation.
Minor degenerative changes, including subtle calcific tendinosis of the peripheral/insertional supraspinatus tendon.
As far as visualized, no peripherally enhancing mass or collection to suggest abscess. No radiographic evidence to suggest osteomyelitis.
Progressive fusiform thickening of the left pectoralis major muscle especially medially, with associated mild soft tissue stranding of the subcutaneous fat. This could suggest soft tissue injury, such as muscle strain or contusion in the proper
clinical setting.
Will add muscle relaxer
Elevated troponin likely secondary to recent Watchman device and FELISHA
Troponin down trended.
Currently without any chest pain. Did not have chest pain at home
CKD stage III
Monitor creatinine. Currently at baseline.
Monitor creatinine and patient did receive IV contrast on admission. Hold lisinopril for additional 24 hours
Persistent atrial fibrillation status post Watchman device
Continue with metoprolol
Not on anticoagulation post Watchman device
Coronary artery disease
Chronic HFpEF
Continue with aspirin, beta-conchis, statin
Restart Lasix
Primary hypertension
Continue with Norvasc, and metoprolol
Restart Lasix. Blood pressure controlled.
Hyperlipidemia
Continue with statin
Osteoarthritis
Chronic opiate usage on daily basis
Tylenol as needed
Continue tramadol home regimen
Bowel regimen if needed
Hypokalemia
Replete as needed
CODE STATUS: Full code
DVT prophylaxis: Heparin
Diet: Cardiac diet.
Total time spent on today's encounter was 65 minutes which included time spent in counseling the patient/family regarding diagnosis and treatment plan as listed above, goals of care, and symptom management. Case was discussed with nursing staff,
specialists, and care coordinators/case management. All labs and imaging personally reviewed by me. Remainder the time spent in detailed review of previous records, lab data, imaging, and other medical provider documentation.
Anticipated Discharge: > 48 hours
Subjective/Interval History
-
Date of Service: September 11, 2024
Patient seen and examined at bedside, still with left shoulder and left upper chest pain but improved compared to yesterday.
Also was complaining of constipation.
Otherwise no abdominal pain, no nausea, no vomiting.
Objective Data
-
Labs:
Laboratory Results
09/11/24
06:11
WBC 11.9 H
Hgb 14.1
Hct 39.2
Plt Count 102 L D
Sodium 136
Potassium 3.5
Chloride 100
Carbon Dioxide 28
BUN 37 H
Creatinine 1.3
Glucose 140 H
Calcium 9.2
Vital Signs:
Vital Signs
Temp Pulse Resp BP Pulse Ox
98.3 F 66 16 143/69 96
09/11/24 07:05 09/11/24 08:01 09/11/24 07:05 09/11/24 08:01 09/11/24 09:37
I&O
09/10/24 09/11/24 09/12/24
06:59 06:59 06:59
Intake Total 1260 / 1260 360 / 360
Output Total 250 / 250
Balance 1010 / 1010 360 / 360
Physical Exam
-
General: Well Developed, Well Nourished, No Apparent Distress and Comfortable
HEENT: Normocephalic, Atraumatic, Moist Mucous Membranes, No Ptosis, PERRLA and Nose Appears Normal
Respiratory: Rales, Rhonchi and Non Labored Respirations
Cardiac: Regular Rhythm and S1/S2
Breast: Deferred by me
GI: Soft, Nontender, Nondistended and Normal Bowel Sounds
Genito-urinary: No Costovertebral Tender
Musculoskeletal: No Clubbing, No Cyanosis, No Edema and Other (Left shoulder limitation of movement, tender left shoulder and left upper chest wall.)
Skin: Warm
Neuro: Awake, Alert, Oriented, AO x 3 and No Motor Deficits
Psych: Calm
Data Reviewed
-
Diagnostic Radiology: Image personally visualized and interpreted and Report Reviewed by me
CT Scan: Image personally visualized and interpreted and Report Reviewed by me
Ultrasound: Image personally visualized and interpreted and Report Reviewed by me
MRI: Image personally visualized and interpreted and Report Reviewed by me
Medical Tests (Nuc Med, Echo etc): Image personally visualized and interpreted and Report Reviewed by me
Labs: Labs Reviewed by me
Old Records: Reviewed
[2024-09-11] MEDS: FLEXERIL 10 MG PO (10:16)
[2024-09-11] MEDS: COLACE 100 MG PO (10:16)
--- NOTE | 2024-09-11 14:39 | CM ---
CM following re: discharge planning.
Reviewed pt's chart, met with pt.
Per chart review, TTE today, ID following, continue supportive care.
PT and OT evaluation noted - home PT/OT recommended. Pt is aware, expressed his agreement. [facility]N choices list provided. Pt preferred [facility]. A referral to [facility] made.
Pt reports he lives with spouse in a [place] and pt stated his spouse will transport home at discharge.
Please fax discharge instructions to [facility] at discharge [phone].
D/C plan: home with [facility] and family support. Spouse to transport at discharge.
CM will follow with discharge plan updates as hospitalization progresses
--- NOTE | 2024-09-11 15:04 | VNURNOTE ---
Attempted to meet with patient. He was having a procedure done at bedside. Will try again later to meet w/him.
[2024-09-11 15:05] VITALS: BP 156/74
--- NOTE | 2024-09-11 15:17 | CARDSERVLU ---
Echocardiogram with [facility] completed after protocol screening completed. Allergies verified.
Patent IV site: __left hand___
IV site flushed with 0.9% NaCl pre and post administration.
Diluted bolus method utilized to enhance visualization of ventricular de santiago.
Total volume given: __4.0__ mL
Patient tolerated all procedures well without complications.
[2024-09-11 16:01] VITALS: BP 156/74
--- NOTE | 2024-09-11 16:13 | VNURNOTE ---
Home Health Liaison spoke with patient to discuss [facility] nurse/therapy, visits, schedule and homebound status. [facility] pt was active in the community. Explained homebound status, pt verbalized understanding. He is agreeable and understands that visits
at home will be 2-3 x per week to assess and teach medical management. Patient is aware that [facility] will contact them for start of care in 1-2 days after discharge from .
[facility] referral completed in [facility].
[2024-09-11] MEDS: LIPITOR 10 MG PO (21:00)
[2024-09-11 23:18] VITALS: BP 166/78
[2024-09-12 05:03] VITALS: BMI 32.8
[2024-09-12] MEDS: ROXICODONE 5 MG PO ×3 (05:47→20:35)
[2024-09-12] MEDS: ANCEF 10 IV ×3 (05:48→20:30)
[2024-09-12] MEDS: TYLENOL 650 MG PO ×2 (05:48→13:42)
[2024-09-12 07:26] VITALS: BP 163/77
[2024-09-12 07:48] VITALS: BMI 32.8
[2024-09-12 08:08] LABS: Blood Urea Nitrogen 32 mg/dl (9-20); Calcium 9.4 mg/dl (8.4-10.2); Carbon Dioxide 30 mmol/L (22-30); Chloride 101 mmol/L (98-107); Estimated Creatinine Clearance 54 ml/min; Glucose 192 mg/dl (70-99); Potassium 3.8 mmol/L (3.5-5.1); Sodium 137 mmol/L (135-145); eGFR > 60.00
[2024-09-12] MEDS: COLACE 100 MG PO (08:28)
[2024-09-12] MEDS: LASIX 40 MG PO (08:28)
[2024-09-12] MEDS: TOPROL XL 25 MG PO (08:28)
[2024-09-12] MEDS: ULTRAM 50 MG PO ×3 (08:28→21:45)
[2024-09-12] MEDS: PROTONIX 40 MG PO (08:28)
[2024-09-12] MEDS: NORVASC 5 MG PO (08:28)
[2024-09-12] MEDS: ASPIR LOW (ENTERIC COATED) 81 MG PO (08:28)
[2024-09-12] MEDS: LIDOCAINE 4% PATCH 1 PATCH TOPICAL (08:29)
[2024-09-12 08:34] LABS: Hematocrit 44.3 % (39.0-52.0); Hemoglobin 15.2 g/dL (13.0-18.0); Mean Corp Hgb Conc. 34.3 g/dL (33.0-37.0); Mean Corpuscular Hgb 30.9 pg (27.0-31.0); Mean Platelet Volume 11.1 fL (7.4-10.4); Platelet Count 160 10^3/uL (130-400); Red Blood Cell Count 4.92 10^6/uL (4.70-6.10); Red Cell Dist. Width 12.4 % (11.5-14.5); White Blood Cell Count 14.3 10^3/uL (4.8-10.8)
--- NOTE | 2024-09-12 09:35 | W.PN.ID1 ---
Date of Service
Date of Service: September 12, 2024
Today's Communication
- TTE nonrevealing
- MRI L shoulder and consider orthopedics consult in the AM pending result; may also move forward to CT c/a/p if shoulder does not appear to be source on MRI
- c/w cefazolin
Assessment / Plan
Klebsiella Bacteremia - persistent
Aspiration Pneumonia
CKD
Watchman implant 06/12 - denies any other hardwear
No prior colonoscopy - reports hes had serial FIT testing
- CT L shoulder - suspected contusion of the L shoulder
- CT chest with mild pneumonia 09/07 - unlikely to be the cause of sustained bacteremia
- TTE nonrevealing
- MRI L shoulder and consider orthopedics consult in the AM pending result; may also move forward to CT c/a/p if shoulder does not appear to be source on MRI
- c/w cefazolin
- follow clinically
Chief Complaint
-: Bacteremia
Subjective / Review of Systems
afebrile
bp stable
shoulder pain ongoing
Vital Signs / Physical Exam
Vital Signs
Vital Signs
Temp Pulse Resp BP Pulse Ox
97.9 F 65 16 163/77 97
09/12/24 07:26 09/12/24 08:28 09/12/24 07:26 09/12/24 08:28 09/12/24 07:26
Physical Exam
Constitutional: No Acute Distress
Cardiovascular: Regular Rate and S1/S2; Negative Murmur or Rub
Pulmonary: Clear and Symmetric; Negative Wheezes or Rales
Gastrointestinal: Soft, Non Tender, Non Distended and Normal Bowel Sounds
Skin: Warm and Dry; Negative Rash or Jaundice
Objective Data
Lab Data
Lab Results
09/12/24 05:54
09/12/24 05:54
Estimated Creat Clear 54 ml/min 09/12/24 05:54
Lactic Acid Cancelled 09/07/24 11:15
Most recent labs reviewed.
Micro Results:
09/10/24 10:37 Blood Culture - Preliminary
Blood/Venous Klebsiella oxytoca
Gram Stain - Preliminary
09/10/24 09:59 Blood Culture - Preliminary
Blood/Venous No Growth in 24 hours- Final report to follow
09/09/24 11:40 Blood Culture - Preliminary
Blood/Venous Klebsiella oxytoca
Gram Stain - Preliminary
09/09/24 10:36 Blood Culture - Preliminary
Blood/Venous Klebsiella oxytoca
Gram Stain - Preliminary
09/08/24 09:04 Blood Culture - Preliminary
Blood/Venous Klebsiella oxytoca
Gram Stain - Preliminary
09/09/24 14:26 Urine Culture - Final
Urine NO GROWTH
09/08/24 09:43 Blood Culture - Preliminary
Blood/Venous Klebsiella oxytoca
Gram Stain - Preliminary
09/07/24 07:08 Blood Culture - Final
Blood/Venous Klebsiella oxytoca
Gram Stain - Final
09/07/24 07:24 Blood Culture - Final
Blood/Venous Klebsiella oxytoca
Gram Stain - Final
Care Review
Plan reviewed with: Physician (Dr Vidales - source of bacteremia)
--- NOTE | 2024-09-12 12:36 | CM ---
CM following re: discharge planning.
Reviewed pt's chart, met with pt.
PT and OT continue recommending home PT/OT. [facility] liaison following.
Pt reports he lives with spouse in a 2SH and pt stated his spouse will transport home at discharge.
Please fax discharge instructions to [facility] at discharge [phone].
D/C plan: home with [facility] and family support. Spouse to transport at discharge.
CM will follow with discharge plan updates as hospitalization progresses
[2024-09-12] MEDS: FLEXERIL 10 MG PO (12:44)
[2024-09-12 15:15] VITALS: BP 123/68
--- NOTE | 2024-09-12 15:56 | W.PN.HOSP.TC ---
Today's Communication/Plan
-
Patient continued to have positive blood
Assessment / Plan
Assessment / Plan
Impression:
78-year-old male past medical history of A-fib status post Watchman device underwent FELISHA last week presenting with fever chills and left shoulder pain.��Found to have aspiration pneumonia and also with gram-negative bacteremia.��On IV
antibiotics.��ID following.��Since still persistent bacteremia.
left shoulder CT scan with IV contrast showed:
No osseous fracture. No shoulder dislocation or separation.
Minor degenerative changes, including subtle calcific tendinosis of the peripheral/insertional supraspinatus tendon.
As far as visualized, no peripherally enhancing mass or collection to suggest abscess. No radiographic evidence to suggest osteomyelitis.
Progressive fusiform thickening of the left pectoralis major muscle especially medially, with associated mild soft tissue stranding of the subcutaneous fat. This could suggest soft tissue injury, such as muscle strain or contusion in the proper
clinical setting
Continue to have positive blood culture
Assessment/plan:
Severe sepsis with acute organ dysfunction/Klebsiella bacteremia.
Source of infection is aspiration pneumonia/with Klebsiella bacteremia.
Acute organ dysfunction in form of acute hypoxic respiratory failure.
Patient meets sepsis criteria on admission
Heart rate 91-94 on day of admission
WBCs 16.4 on day of
Respiratory rate up to 28 dated
No documented fever.
Lactic acid 1.9
Source of infection is aspiration pneumonia
IV fluid
Patient initially started on Unasyn, infectious disease switched antibiotic to cefazolin.
Blood culture 09/07 2/2 bottles Klebsiella oxytoca.
Blood culture 09/08 2/2 bottles positive.
Blood culture 09/09 1/2 bottles positive.
Blood culture 09/10 pending
Urine culture pending
Appreciate infectious disease input.
WBCs improved
CT left shoulder shows no evidence of abscess or osteomyelitis.
TTE pending
09/12
Patient still have positive blood culture.
�Discussed with infectious disease.
�Consider MRI left shoulder, repeat blood culture from today still pending.
Acute hypoxic respiratory insufficiency secondary to aspiration pneumonia
Mild bilateral upper lobe emphysema
Wean oxygen as tolerated
Continue antibiotic
Sputum sample if able to provide sample
Speech therapy evaluation ---> passed swallow eval
Incentive spirometry.
Left shoulder pain secondary to positional and osteoarthritis
Left upper chest wall pain
Left pectoralis major muscle strain/contusion
Continue with lidocaine patch
Tylenol as needed
Ice pack if needed
Pain control
X-rays with mild osteoarthritis of the left AC joint. 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
left shoulder CT scan with IV contrast showed:
No osseous fracture. No shoulder dislocation or separation.
Minor degenerative changes, including subtle calcific tendinosis of the peripheral/insertional supraspinatus tendon.
As far as visualized, no peripherally enhancing mass or collection to suggest abscess. No radiographic evidence to suggest osteomyelitis.
Progressive fusiform thickening of the left pectoralis major muscle especially medially, with associated mild soft tissue stranding of the subcutaneous fat. This could suggest soft tissue injury, such as muscle strain or contusion in the proper
clinical setting.
Will add muscle relaxer
Elevated troponin likely secondary to recent Watchman device and FELISHA
Troponin down trended.
Currently without any chest pain. Did not have chest pain at home
CKD stage III
Monitor creatinine. Currently at baseline.
Monitor creatinine and patient did receive IV contrast on admission. Hold lisinopril for additional 24 hours
Persistent atrial fibrillation status post Watchman device
Continue with metoprolol
Not on anticoagulation post Watchman device
Coronary artery disease
Chronic HFpEF
Continue with aspirin, beta-conchis, statin
Restart Lasix
Primary hypertension
Continue with Norvasc, and metoprolol
Restart Lasix. Blood pressure controlled.
Hyperlipidemia
Continue with statin
Osteoarthritis
Chronic opiate usage on daily basis
Tylenol as needed
Continue tramadol home regimen
Bowel regimen if needed
Hypokalemia
Replete as needed
CODE STATUS: Full code
DVT prophylaxis: Heparin
Diet: Cardiac diet.
Total time spent on today's encounter was 65 minutes which included time spent in counseling the patient/family regarding diagnosis and treatment plan as listed above, goals of care, and symptom management. Case was discussed with nursing staff,
specialists, and care coordinators/case management. All labs and imaging personally reviewed by me. Remainder the time spent in detailed review of previous records, lab data, imaging, and other medical provider documentation.
Anticipated Discharge: > 48 hours
Subjective/Interval History
-
Date of Service: September 12, 2024
Patient seen and examined at bedside, still with left shoulder pain but overall improved denies.
any chest pain or shortness of breath, no abdominal pain, no nausea, no vomiting, no diarrhea or constipation.
Objective Data
-
Labs:
Laboratory Results
09/12/24
05:54
WBC 14.3 H
Hgb 15.2
Hct 44.3
Plt Count 160 D
Sodium 137
Potassium 3.8
Chloride 101
Carbon Dioxide 30
BUN 32 H
Creatinine 1.2
Glucose 192 H
Calcium 9.4
Vital Signs:
Vital Signs
Temp Pulse Resp BP Pulse Ox
97.9 F 65 16 163/77 97
09/12/24 07:26 09/12/24 08:28 09/12/24 07:26 09/12/24 08:28 09/12/24 07:26
I&O
09/11/24 09/12/24 09/13/24
06:59 06:59 06:59
Intake Total 360 / 360 1610 / 1610
Balance 360 / 360 1610 / 1610
Physical Exam
-
General: Well Developed, Well Nourished, No Apparent Distress and Comfortable
HEENT: Normocephalic, Atraumatic, Moist Mucous Membranes, No Ptosis, PERRLA and Nose Appears Normal
Respiratory: Rales, Rhonchi and Non Labored Respirations
Cardiac: Regular Rhythm and S1/S2
Breast: Deferred by me
GI: Soft, Nontender, Nondistended and Normal Bowel Sounds
Genito-urinary: No Costovertebral Tender
Musculoskeletal: No Clubbing, No Cyanosis, No Edema and Other (Left shoulder limitation of movement, tender left shoulder and left upper chest wall.)
Skin: Warm
Neuro: Awake, Alert, Oriented, AO x 3 and No Motor Deficits
Psych: Calm
Data Reviewed
-
Diagnostic Radiology: Image personally visualized and interpreted and Report Reviewed by me
CT Scan: Image personally visualized and interpreted and Report Reviewed by me
Ultrasound: Image personally visualized and interpreted and Report Reviewed by me
MRI: Image personally visualized and interpreted and Report Reviewed by me
Medical Tests (Nuc Med, Echo etc): Image personally visualized and interpreted and Report Reviewed by me
Labs: Labs Reviewed by me
Old Records: Reviewed
[2024-09-12 16:24] VITALS: BP 123/68; PULSE 63
[2024-09-12] MEDS: CITROMA 300 ML PO (17:14)
--- NOTE | 2024-09-12 17:17 | PTCARENOTE ---
Patient AAOX3, VSS this shift, repeat blood cx x2 drawn this AM per MD. Patient c/o L shoulder pain rated 5/10, partially relieved with PRN flexeril, oxycodone, and tylenol adminsitered throughout shift - see JUN. Patient states having constipation
despite ordered bowel regimen, MD aware, one time dose of mag citrate ordered per MD and administered by this RN - see JUN. Patient assist x1 RW to bathroom and chair throughout shift, ringing appropriately.
--- NOTE | 2024-09-12 18:01 | DOWNTIME ---
There was a [employer] Client Anger Control Counselor Downtime on 09/12/2024 from 1230 to 09/12/2024 at 1550. Downtime documentation of patient's care, including medication administrations, has been reconciled in the electronic record per guidelines. Refer to the
patient's paper chart under the miscellaneous tab to see printed paper medication records and downtime forms.
[2024-09-12] MEDS: LIPITOR 10 MG PO (21:45)
[2024-09-12 23:25] VITALS: BP 140/80
[2024-09-12 23:44] VITALS: BP 140/80
--- NOTE | 2024-09-13 01:19 | PTCARENOTE ---
Pt AAOx3. Pt able to make needs known. Pt received call for MRI screening with hopes it would be tonight. Education given Pt aware it may be in the morning. Pt having some pain in left shoulder area see MAR for medication admin. Call poon within
reach.
[2024-09-13] MEDS: ANCEF 10 IV ×3 (04:54→19:53)
[2024-09-13 05:09] VITALS: BMI 33.3
[2024-09-13] MEDS: ROXICODONE 5 MG PO ×2 (06:31→18:44)
[2024-09-13 07:05] VITALS: BP 155/76
[2024-09-13 07:32] LABS: % Basophils 0.9 % (0-2); % Eosinophils 0.8 % (0-6); % Immature Granulocytes 2.4 % (0-0.5); % Lymphocytes 4.5 % (20.5-51.1); % Monocytes 9.7 % (1.7-9.3); % Neutrophils 81.7 % (42.2-75.2); Absolute Basophils 0.1 10^3/uL (0-0.2); Absolute Eosinophils 0.1 10^3/uL (0-0.7); Absolute Immature Granulocytes 0.3 10^3/uL (0-0.05); Absolute Lymphocytes 0.5 10^3/uL (1.2-3.4); Absolute Neutrophils 8.7 10^3/uL (1.4-6.5); Hematocrit 44.4 % (39.0-52.0); Hemoglobin 15.9 g/dL (13.0-18.0); Mean Corp Hgb Conc. 35.8 g/dL (33.0-37.0); Mean Corpuscular Hgb 31.4 pg (27.0-31.0); Mean Corpuscular Volume 87.7 fL (80.0-94.0); Mean Platelet Volume 10.6 fL (7.4-10.4); Nucleated Red Blood Cells % 0 % (-); Platelet Count 169 10^3/uL (130-400); Red Blood Cell Count 5.06 10^6/uL (4.70-6.10); Red Cell Dist. Width 12.8 % (11.5-14.5); White Blood Cell Count 10.6 10^3/uL (4.8-10.8)
[2024-09-13] MEDS: NORVASC 5 MG PO (07:41)
[2024-09-13] MEDS: ASPIR LOW (ENTERIC COATED) 81 MG PO (07:41)
[2024-09-13] MEDS: PROTONIX 40 MG PO (07:41)
[2024-09-13] MEDS: COLACE 100 MG PO (07:42)
[2024-09-13] MEDS: LIDOCAINE 4% PATCH 1 PATCH TOPICAL (07:42)
[2024-09-13] MEDS: ULTRAM 50 MG PO ×3 (07:42→21:22)
[2024-09-13] MEDS: TOPROL XL 25 MG PO (07:42)
[2024-09-13] MEDS: LASIX 40 MG PO (07:43)
[2024-09-13] MEDS: FLEXERIL 10 MG PO ×2 (11:04→21:35)
--- NOTE | 2024-09-13 11:21 | W.PN.HOSP.TC ---
Today's Communication/Plan
-
MRI left shoulder
Assessment / Plan
Assessment / Plan
Impression:
78-year-old male past medical history of A-fib status post Watchman device underwent FELISHA last week presenting with fever chills and left shoulder pain.��Found to have aspiration pneumonia and also with gram-negative bacteremia.��On IV
antibiotics.��ID following.��Since still persistent bacteremia.
left shoulder CT scan with IV contrast showed:
No osseous fracture. No shoulder dislocation or separation.
Minor degenerative changes, including subtle calcific tendinosis of the peripheral/insertional supraspinatus tendon.
As far as visualized, no peripherally enhancing mass or collection to suggest abscess. No radiographic evidence to suggest osteomyelitis.
Progressive fusiform thickening of the left pectoralis major muscle especially medially, with associated mild soft tissue stranding of the subcutaneous fat. This could suggest soft tissue injury, such as muscle strain or contusion in the proper
clinical setting
Continue to have positive blood culture
Repeat blood culture from 09/12 pending
Assessment/plan:
Severe sepsis with acute organ dysfunction/Klebsiella bacteremia.
Source of infection is aspiration pneumonia/with Klebsiella bacteremia.
Acute organ dysfunction in form of acute hypoxic respiratory failure.
Patient meets sepsis criteria on admission
Heart rate 91-94 on day of admission
WBCs 16.4 on day of
Respiratory rate up to 28 dated
No documented fever.
Lactic acid 1.9
Source of infection is aspiration pneumonia
IV fluid
Patient initially started on Unasyn, infectious disease switched antibiotic to cefazolin.
Blood culture 09/07 2/2 bottles Klebsiella oxytoca.
Blood culture 09/08 2/2 bottles positive.
Blood culture 09/09 2/2 bottles positive.
Blood culture 09/10 1/2 bottles positive.
Blood culture 09/12 pending
Appreciate infectious disease input.
WBCs improved
CT left shoulder shows no evidence of abscess or osteomyelitis.
TTE shows no evidence of vegetations
�Consider MRI left shoulder pending.
Acute hypoxic respiratory insufficiency secondary to aspiration pneumonia
Mild bilateral upper lobe emphysema
Wean oxygen as tolerated
Continue antibiotic
Sputum sample if able to provide sample
Speech therapy evaluation ---> passed swallow eval
Incentive spirometry.
Left shoulder pain secondary to positional and osteoarthritis
Left upper chest wall pain
Left pectoralis major muscle strain/contusion
Continue with lidocaine patch
Tylenol as needed
Ice pack if needed
Pain control
X-rays with mild osteoarthritis of the left AC joint. 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
left shoulder CT scan with IV contrast showed:
No osseous fracture. No shoulder dislocation or separation.
Minor degenerative changes, including subtle calcific tendinosis of the peripheral/insertional supraspinatus tendon.
As far as visualized, no peripherally enhancing mass or collection to suggest abscess. No radiographic evidence to suggest osteomyelitis.
Progressive fusiform thickening of the left pectoralis major muscle especially medially, with associated mild soft tissue stranding of the subcutaneous fat. This could suggest soft tissue injury, such as muscle strain or contusion in the proper
clinical setting.
Will add muscle relaxer
Elevated troponin likely secondary to recent Watchman device and FELISHA
Troponin down trended.
Currently without any chest pain. Did not have chest pain at home
CKD stage III
Monitor creatinine. Currently at baseline.
Monitor creatinine and patient did receive IV contrast on admission. Hold lisinopril for additional 24 hours
Persistent atrial fibrillation status post Watchman device
Continue with metoprolol
Not on anticoagulation post Watchman device
Coronary artery disease
Chronic HFpEF
Continue with aspirin, beta-conchis, statin
Restart Lasix
Primary hypertension
Continue with Norvasc, and metoprolol
Restart Lasix. Blood pressure controlled.
Hyperlipidemia
Continue with statin
Osteoarthritis
Chronic opiate usage on daily basis
Tylenol as needed
Continue tramadol home regimen
Bowel regimen if needed
Hypokalemia
Replete as needed
CODE STATUS: Full code
DVT prophylaxis: Heparin
Diet: Cardiac diet.
Total time spent on today's encounter was 65 minutes which included time spent in counseling the patient/family regarding diagnosis and treatment plan as listed above, goals of care, and symptom management. Case was discussed with nursing staff,
specialists, and care coordinators/case management. All labs and imaging personally reviewed by me. Remainder the time spent in detailed review of previous records, lab data, imaging, and other medical provider documentation.
Anticipated Discharge: > 48 hours
Subjective/Interval History
-
Date of Service: September 13, 2024
Patient seen and examined at bedside, still with left shoulder pain but overall improved , MRI left shoulder pending.
any chest pain or shortness of breath, no abdominal pain, no nausea, no vomiting, no diarrhea or constipation
Objective Data
-
Labs:
Laboratory Results
09/13/24
06:45
WBC 10.6
Hgb 15.9
Hct 44.4
Plt Count 169
Vital Signs:
Vital Signs
Temp Pulse Resp BP Pulse Ox
98.1 F 67 16 155/66 94
09/13/24 07:05 09/13/24 07:43 09/13/24 07:05 09/13/24 07:43 09/13/24 10:47
I&O
09/12/24 09/13/24 09/14/24
06:59 06:59 06:59
Intake Total 1610 / 1610 1620 / 1620
Balance 1610 / 1610 1620 / 1620
Physical Exam
-
General: Well Developed, Well Nourished, No Apparent Distress and Comfortable
HEENT: Normocephalic, Atraumatic, Moist Mucous Membranes, No Ptosis, PERRLA and Nose Appears Normal
Respiratory: Rales, Rhonchi and Non Labored Respirations
Cardiac: Regular Rhythm and S1/S2
Breast: Deferred by me
GI: Soft, Nontender, Nondistended and Normal Bowel Sounds
Genito-urinary: No Costovertebral Tender
Musculoskeletal: No Clubbing, No Cyanosis, No Edema and Other (Left shoulder limitation of movement, tender left shoulder and left upper chest wall.)
Skin: Warm
Neuro: Awake, Alert, Oriented, AO x 3 and No Motor Deficits
Psych: Calm
Data Reviewed
-
Diagnostic Radiology: Image personally visualized and interpreted and Report Reviewed by me
CT Scan: Image personally visualized and interpreted and Report Reviewed by me
Ultrasound: Image personally visualized and interpreted and Report Reviewed by me
MRI: Image personally visualized and interpreted and Report Reviewed by me
Medical Tests (Nuc Med, Echo etc): Image personally visualized and interpreted and Report Reviewed by me
Labs: Labs Reviewed by me
Old Records: Reviewed
--- NOTE | 2024-09-13 14:15 | CM ---
CM following re: discharge planning.
Reviewed pt's chart, met with pt.
Per chart review, MRI left shoulder today, continue supportive care.
PT and OT continue recommending home PT/OT. [facility] liaison following.
Pt reports he lives with spouse in a [place] and pt stated his spouse will transport home at discharge.
Please fax discharge instructions to [facility] at discharge [phone].
D/C plan: home with [facility] and family support. Spouse to transport at discharge.
CM will follow with discharge plan updates as hospitalization progresses
[2024-09-13 15:05] VITALS: BP 147/70
--- NOTE | 2024-09-13 16:44 | W.PN.ID1 ---
Date of Service
Date of Service: September 13, 2024
Today's Communication
- MRI L shoulder and consider orthopedics consult in the AM pending result; may also move forward to CT c/a/p if shoulder does not appear to be source on MRI
Assessment / Plan
Klebsiella Bacteremia - persistent
Aspiration Pneumonia
CKD
Watchman implant 06/12 - denies any other hardwear
No prior colonoscopy - reports hes had serial FIT testing
- CT L shoulder - suspected contusion of the L shoulder
- CT chest with mild pneumonia 09/07 - unlikely to be the cause of sustained bacteremia
- TTE nonrevealing
- MRI L shoulder and consider orthopedics consult in the AM pending result; may also move forward to CT c/a/p if shoulder does not appear to be source on MRI
- c/w cefazolin
- follow clinically
Chief Complaint
-: Bacteremia
Subjective / Review of Systems
afebrile
bp stable
tolerating current therapies
less pain in the L shoulder
Vital Signs / Physical Exam
Vital Signs
Vital Signs
Temp Pulse Resp BP Pulse Ox
99.2 F 65 16 147/70 93
09/13/24 15:05 09/13/24 15:05 09/13/24 15:05 09/13/24 15:05 09/13/24 15:05
Physical Exam
Constitutional: No Acute Distress
Cardiovascular: Regular Rate and S1/S2; Negative Murmur or Rub
Pulmonary: Clear and Symmetric; Negative Wheezes or Rales
Gastrointestinal: Soft, Non Tender, Non Distended and Normal Bowel Sounds
Skin: Warm and Dry; Negative Rash or Jaundice
Objective Data
Lab Data
Lab Results
09/13/24 06:45
09/12/24 05:54
Estimated Creat Clear 54 ml/min 09/12/24 05:54
Lactic Acid Cancelled 09/07/24 11:15
Most recent labs reviewed.
Micro Results:
09/12/24 10:12 Blood Culture - Preliminary
Blood/Venous No Growth in 24 hours- Final report to follow
09/10/24 09:59 Blood Culture - Preliminary
Blood/Venous No Growth in 72 hours- Final report to follow
09/12/24 09:38 Blood Culture - Preliminary
Blood/Venous No Growth in 24 hours- Final report to follow
09/10/24 10:37 Blood Culture - Preliminary
Blood/Venous Klebsiella oxytoca
Gram Stain - Preliminary
09/09/24 11:40 Blood Culture - Preliminary
Blood/Venous Klebsiella oxytoca
Gram Stain - Preliminary
09/09/24 10:36 Blood Culture - Preliminary
Blood/Venous Klebsiella oxytoca
Gram Stain - Preliminary
09/08/24 09:04 Blood Culture - Preliminary
Blood/Venous Klebsiella oxytoca
Gram Stain - Preliminary
09/09/24 14:26 Urine Culture - Final
Urine NO GROWTH
09/08/24 09:43 Blood Culture - Preliminary
Blood/Venous Klebsiella oxytoca
Gram Stain - Preliminary
09/07/24 07:08 Blood Culture - Final
Blood/Venous Klebsiella oxytoca
Gram Stain - Final
09/07/24 07:24 Blood Culture - Final
Blood/Venous Klebsiella oxytoca
Gram Stain - Final
[2024-09-13] MEDS: FLUSH (NSS) 2 FLUSH IV (19:53)
[2024-09-13] MEDS: LIPITOR 10 MG PO (21:22)
[2024-09-13 23:31] VITALS: BP 150/71
[2024-09-14] MEDS: ANCEF 10 IV ×3 (04:31→19:54)
[2024-09-14] MEDS: FLUSH (NSS) 2 FLUSH IV (04:33)
[2024-09-14 05:06] VITALS: BMI 33.4
[2024-09-14 07:00] VITALS: BP 161/75
[2024-09-14] MEDS: PROTONIX 40 MG PO (08:06)
[2024-09-14] MEDS: ASPIR LOW (ENTERIC COATED) 81 MG PO (08:06)
[2024-09-14] MEDS: COLACE 100 MG PO (08:06)
[2024-09-14] MEDS: NORVASC 5 MG PO (08:07)
[2024-09-14] MEDS: LASIX 40 MG PO (08:08)
[2024-09-14] MEDS: TOPROL XL 25 MG PO (08:08)
[2024-09-14] MEDS: ULTRAM 50 MG PO ×3 (08:08→21:06)
[2024-09-14] MEDS: LIDOCAINE 4% PATCH 1 PATCH TOPICAL (08:09)
[2024-09-14] MEDS: ROXICODONE 5 MG PO ×2 (09:32→20:01)
--- NOTE | 2024-09-14 11:53 | W.PN.HOSP.TC ---
Today's Communication/Plan
-
Consider orthopedic consult.
Follow with infectious disease recommendations
Assessment / Plan
Assessment / Plan
Impression:
78-year-old male past medical history of A-fib status post Watchman device underwent FELISHA last week presenting with fever chills and left shoulder pain.��Found to have aspiration pneumonia and also with gram-negative bacteremia.��On IV
antibiotics.��ID following.��Since still persistent bacteremia.
left shoulder CT scan with IV contrast showed:
No osseous fracture. No shoulder dislocation or separation.
Minor degenerative changes, including subtle calcific tendinosis of the peripheral/insertional supraspinatus tendon.
As far as visualized, no peripherally enhancing mass or collection to suggest abscess. No radiographic evidence to suggest osteomyelitis.
Progressive fusiform thickening of the left pectoralis major muscle especially medially, with associated mild soft tissue stranding of the subcutaneous fat. This could suggest soft tissue injury, such as muscle strain or contusion in the proper
clinical setting
Continue to have positive blood culture till 09/10
Repeat blood culture afterward with no growth.
MRI left shoulder:
1. 1.4 x 0.5 cm ovoid rim-enhancing collection at the superficial margin of the left pectoralis major muscle. This is incompletely included in the [id number] on this exam, but could represent a small abscess given the clinical history.
2. No MRI evidence for osteomyelitis or septic arthritis.
3. Tear of the superior and posterior glenoid labrum with a 1.4 x 0.7 cm posterior paralabral cyst.
4. Moderate supraspinatus and infraspinatus tendinosis.
5. Tiny intrasubstance tear of the supraspinatus tendon insertion.
6. Moderate acromioclavicular osteoarthrosis. Bone marrow edema in the distal clavicle may be degenerative or secondary to distal clavicular osteolysis
Assessment/plan:
Severe sepsis with acute organ dysfunction/Klebsiella bacteremia/left pectoralis major muscle.
Source of infection is aspiration pneumonia/with Klebsiella bacteremia.
Acute organ dysfunction in form of acute hypoxic respiratory failure.
Patient meets sepsis criteria on admission
Heart rate 91-94 on day of admission
WBCs 16.4 on day of
Respiratory rate up to 28 dated
No documented fever.
Lactic acid 1.9
Source of infection is aspiration pneumonia
IV fluid
Patient initially started on Unasyn, infectious disease switched antibiotic to cefazolin.
Blood culture 09/07 2/ bottles Klebsiella oxytoca.
Blood culture 09/08 2/2 bottles positive.
Blood culture 09/09 2/2 bottles positive.
Blood culture 09/10 1/ bottles positive.
Blood culture 09/12, 09/13 NGTD
Appreciate infectious disease input.
WBCs improved
CT left shoulder shows no evidence of abscess or osteomyelitis.
TTE shows no evidence of vegetations
MRI left shoulder:
1. 1.4 x 0.5 cm ovoid rim-enhancing collection at the superficial margin of the left pectoralis major muscle. This is incompletely included in the [id number] on this exam, but could represent a small abscess given the clinical history.
2. No MRI evidence for osteomyelitis or septic arthritis.
3. Tear of the superior and posterior glenoid labrum with a 1.4 x 0.7 cm posterior paralabral cyst.
4. Moderate supraspinatus and infraspinatus tendinosis.
5. Tiny intrasubstance tear of the supraspinatus tendon insertion.
6. Moderate acromioclavicular osteoarthrosis. Bone marrow edema in the distal clavicle may be degenerative or secondary to distal clavicular osteolysis.
Will text with orthopedic if this abscess can be drained
Acute hypoxic respiratory insufficiency secondary to aspiration pneumonia
Mild bilateral upper lobe emphysema
Wean oxygen as tolerated
Continue antibiotic
Sputum sample if able to provide sample
Speech therapy evaluation ---> passed swallow eval
Incentive spirometry.
Left shoulder pain secondary to positional and osteoarthritis/left pectoralis major muscle.
Left upper chest wall pain
Left pectoralis major muscle strain/contusion
left shoulder CT scan with IV contrast showed:
No osseous fracture. No shoulder dislocation or separation.
Minor degenerative changes, including subtle calcific tendinosis of the peripheral/insertional supraspinatus tendon.
As far as visualized, no peripherally enhancing mass or collection to suggest abscess. No radiographic evidence to suggest osteomyelitis.
Progressive fusiform thickening of the left pectoralis major muscle especially medially, with associated mild soft tissue stranding of the subcutaneous fat. This could suggest soft tissue injury, such as muscle strain or contusion in the proper
clinical setting.
MRI left shoulder:
1. 1.4 x 0.5 cm ovoid rim-enhancing collection at the superficial margin of the left pectoralis major muscle. This is incompletely included in the [id number] on this exam, but could represent a small abscess given the clinical history.
2. No MRI evidence for osteomyelitis or septic arthritis.
3. Tear of the superior and posterior glenoid labrum with a 1.4 x 0.7 cm posterior paralabral cyst.
4. Moderate supraspinatus and infraspinatus tendinosis.
5. Tiny intrasubstance tear of the supraspinatus tendon insertion.
6. Moderate acromioclavicular osteoarthrosis. Bone marrow edema in the distal clavicle may be degenerative or secondary to distal clavicular osteolysis.
Will text with orthopedic if this abscess can be drained
Elevated troponin likely secondary to recent Watchman device and FELISHA
Troponin down trended.
Currently without any chest pain. Did not have chest pain at home
CKD stage III
Monitor creatinine. Currently at baseline.
Monitor creatinine and patient did receive IV contrast on admission. Hold lisinopril for additional 24 hours
Persistent atrial fibrillation status post Watchman device
Continue with metoprolol
Not on anticoagulation post Watchman device
Coronary artery disease
Chronic HFpEF
Continue with aspirin, beta-conchis, statin
Restart Lasix
Primary hypertension
Continue with Norvasc, and metoprolol
Restart Lasix. Blood pressure controlled.
Hyperlipidemia
Continue with statin
Osteoarthritis
Chronic opiate usage on daily basis
Tylenol as needed
Continue tramadol home regimen
Bowel regimen if needed
Hypokalemia
Replete as needed
CODE STATUS: Full code
DVT prophylaxis: Heparin
Diet: Cardiac diet.
Total time spent on today's encounter was 65 minutes which included time spent in counseling the patient/family regarding diagnosis and treatment plan as listed above, goals of care, and symptom management. Case was discussed with nursing staff,
specialists, and care coordinators/case management. All labs and imaging personally reviewed by me. Remainder the time spent in detailed review of previous records, lab data, imaging, and other medical provider documentation.
Anticipated Discharge: 24 - 48 hours
Subjective/Interval History
-
Date of Service: September 14, 2024
Patient seen and examined at bedside, still with left shoulder pain but overall improved , MRI left shoulder showed 1.4 x 0.5 cm ovoid rim-enhancing collection at the superficial margin of the left pectoralis major muscle. This is incompletely
included in the [id number] on this exam, but could represent a small abscess given the clinical history
Objective Data
-
Vital Signs:
Vital Signs
Temp Pulse Resp BP Pulse Ox
97.7 F 67 16 161/75 93
09/14/24 07:00 09/14/24 08:08 09/14/24 07:00 09/14/24 08:08 09/14/24 07:00
I&O
09/13/24 09/14/24 09/15/24
06:59 06:59 06:59
Intake Total 1620 / 1620 1500 / 1500
Balance 1620 / 1620 1500 / 1500
Physical Exam
-
General: Well Developed, Well Nourished, No Apparent Distress and Comfortable
HEENT: Normocephalic, Atraumatic, Moist Mucous Membranes, No Ptosis, PERRLA and Nose Appears Normal
Respiratory: Rales, Rhonchi and Non Labored Respirations
Cardiac: Regular Rhythm and S1/S2
Breast: Deferred by me
GI: Soft, Nontender, Nondistended and Normal Bowel Sounds
Genito-urinary: No Costovertebral Tender
Musculoskeletal: No Clubbing, No Cyanosis, No Edema and Other (Left shoulder limitation of movement, tender left shoulder and left upper chest wall.)
Skin: Warm
Neuro: Awake, Alert, Oriented, AO x 3 and No Motor Deficits
Psych: Calm
Data Reviewed
-
Diagnostic Radiology: Image personally visualized and interpreted and Report Reviewed by me
CT Scan: Image personally visualized and interpreted and Report Reviewed by me
Ultrasound: Image personally visualized and interpreted and Report Reviewed by me
MRI: Image personally visualized and interpreted and Report Reviewed by me
Medical Tests (Nuc Med, Echo etc): Image personally visualized and interpreted and Report Reviewed by me
Labs: Labs Reviewed by me
Old Records: Reviewed
--- NOTE | 2024-09-14 13:08 | W.PN.ID1 ---
Date of Service
Date of Service: September 14, 2024
Today's Communication
Continue antibiotics.
Assessment / Plan
Klebsiella Bacteremia - persistent
Aspiration Pneumonia
CKD
Watchman implant 06/12 - denies any other hardware
No prior colonoscopy - reports he's had serial FIT testing
Recommendations:
- CT L shoulder - suspected contusion of the L shoulder
- CT chest with mild pneumonia 09/07 - unlikely to be the cause of sustained bacteremia
- TTE nonrevealing
- MRI L shoulder with abnormalities. Would recommend Orthopedics evaluation.
- Leukocytosis has improved.
- Blood cultures from 09/09 positive with Klebsiella oxytoca. Single blood culture from 09/10 also positive. Repeat cultures from 09/12 no growth x 48 hours. Blood cultures from today are pending.
- Continue cefazolin
- Will continue to follow clinically.
����������������������������������������������������������
Chief Complaint
-: Bacteremia
Subjective / Review of Systems
Patient seen and examined. Notes left shoulder discomfort with active ROM
Review of Systems: No Fever and No Chills
Vital Signs / Physical Exam
Vital Signs
Vital Signs
Temp Pulse Resp BP Pulse Ox
97.7 F 67 16 161/75 93
09/14/24 07:00 09/14/24 08:08 09/14/24 07:00 09/14/24 08:08 09/14/24 07:00
Physical Exam
Constitutional: No Acute Distress, Comfortable and Non-toxic
Eyes: Sclera Anicteric
Cardiovascular: S1/S2; Negative S3/S4
Pulmonary: Clear; Negative Wheezes or Rales
Gastrointestinal: Soft and Non Tender
Extremities: Negative Edema or Cyanosis
Musculoskeletal: Other (Mild left shoulder tenderness with palpation); Negative Joint Swelling
Neurological: Awake and Alert
Psychological: Calm
Objective Data
Lab Data
Lab Results
09/13/24 06:45
09/12/24 05:54
Estimated Creat Clear 54 ml/min 09/12/24 05:54
Lactic Acid Cancelled 09/07/24 11:15
Most recent labs reviewed.
Micro Results:
09/12/24 10:12 Blood Culture - Preliminary
Blood/Venous No Growth in 48 hours- Final report to follow
09/10/24 09:59 Blood Culture - Preliminary
Blood/Venous No Growth in 4 days- Final report to follow
09/14/24 08:09 Blood Culture - Pending
Blood/Venous
09/14/24 09:15 Blood Culture - Pending
Blood/Venous
09/12/24 09:38 Blood Culture - Preliminary
Blood/Venous No Growth in 48 hours- Final report to follow
09/10/24 10:37 Blood Culture - Preliminary
Blood/Venous Klebsiella oxytoca
Gram Stain - Preliminary
09/09/24 11:40 Blood Culture - Preliminary
Blood/Venous Klebsiella oxytoca
Gram Stain - Preliminary
09/09/24 10:36 Blood Culture - Preliminary
Blood/Venous Klebsiella oxytoca
Gram Stain - Preliminary
09/08/24 09:04 Blood Culture - Preliminary
Blood/Venous Klebsiella oxytoca
Gram Stain - Preliminary
09/09/24 14:26 Urine Culture - Final
Urine NO GROWTH
09/08/24 09:43 Blood Culture - Preliminary
Blood/Venous Klebsiella oxytoca
Gram Stain - Preliminary
09/07/24 07:08 Blood Culture - Final
Blood/Venous Klebsiella oxytoca
Gram Stain - Final
09/07/24 07:24 Blood Culture - Final
Blood/Venous Klebsiella oxytoca
Gram Stain - Final
Imaging:
09/13/2024 MRI left upper extremity: At the superficial margin of the left pectoralis major muscle there is a 1.4 x 0.5 cm ovoid rim-enhancing collection. On the current study it is incompletely included in the [id number]-[id number]. No MRI evidence for
osteomyelitis or septic arthritis. A tear of the superior and posterior glenoid labrum with a 1.4 x 0.7 cm posterior paralabral cyst. Moderate supraspinatus and infraspinatus tendinosis noted. Moderate acromioclavicular osteoarthrosis. Please
see full dictation for additional detail.
09/10/2024 CT upper extremity: No osseous fracture. No shoulder dislocation or separation. Minor degenerative changes, including subtle calcific tendinosis of the peripheral/insertional supraspinatus tendon. As far as visualized, no peripherally
enhancing mass or collection to suggest abscess. No radiographic evidence to suggest osteomyelitis. Progressive fusiform thickening of the left pectoralis major muscle especially medially, with associated mild soft tissue stranding of the
subcutaneous fat. This could suggest soft tissue injury, such as muscle strain or contusion in the proper clinical setting.
[2024-09-14 13:26] VITALS: O2SAT 94
[2024-09-14 17:43] VITALS: BP 143/70; BP_SYST 66
[2024-09-14 18:31] VITALS: BP 160/70; BP_SYST 66
--- NOTE | 2024-09-14 18:54 | W.PN.IRAD.PR ---
Procedure Note
-
L sternoclavicular joint aspirated under US guidance. Minimal fluid return, admixed with preservative free saline and sent for micro. No immediate complications.
[2024-09-14] MEDS: LIPITOR 10 MG PO (21:05)
[2024-09-14 23:04] VITALS: BP 129/68
[2024-09-15] MEDS: ANCEF 10 IV ×3 (03:53→19:33)
[2024-09-15 07:25] VITALS: BP 117/70
[2024-09-15] MEDS: COLACE 100 MG PO (08:12)
[2024-09-15] MEDS: TOPROL XL 25 MG PO (08:12)
[2024-09-15] MEDS: ULTRAM 50 MG PO ×3 (08:12→21:16)
[2024-09-15] MEDS: PROTONIX 40 MG PO (08:12)
[2024-09-15] MEDS: LIDOCAINE 4% PATCH 1 PATCH TOPICAL (08:12)
[2024-09-15] MEDS: LASIX 40 MG PO (08:13)
[2024-09-15] MEDS: ASPIR LOW (ENTERIC COATED) 81 MG PO (08:13)
[2024-09-15] MEDS: NORVASC 5 MG PO (08:13)
--- NOTE | 2024-09-15 10:57 | W.PN.HOSP.TC ---
Today's Communication/Plan
-
CT abdomen pelvis
Assessment / Plan
Assessment / Plan
Impression:
78-year-old male past medical history of A-fib status post Watchman device underwent FELISHA last week presenting with fever chills and left shoulder pain.��Found to have aspiration pneumonia and also with gram-negative bacteremia.��On IV
antibiotics.��ID following.��Since still persistent bacteremia.
left shoulder CT scan with IV contrast showed:
No osseous fracture. No shoulder dislocation or separation.
Minor degenerative changes, including subtle calcific tendinosis of the peripheral/insertional supraspinatus tendon.
As far as visualized, no peripherally enhancing mass or collection to suggest abscess. No radiographic evidence to suggest osteomyelitis.
Progressive fusiform thickening of the left pectoralis major muscle especially medially, with associated mild soft tissue stranding of the subcutaneous fat. This could suggest soft tissue injury, such as muscle strain or contusion in the proper
clinical setting
Continue to have positive blood culture till 09/10
Repeat blood culture afterward with no growth.
MRI left shoulder:
1. 1.4 x 0.5 cm ovoid rim-enhancing collection at the superficial margin of the left pectoralis major muscle. This is incompletely included in the [id number] on this exam, but could represent a small abscess given the clinical history.
2. No MRI evidence for osteomyelitis or septic arthritis.
3. Tear of the superior and posterior glenoid labrum with a 1.4 x 0.7 cm posterior paralabral cyst.
4. Moderate supraspinatus and infraspinatus tendinosis.
5. Tiny intrasubstance tear of the supraspinatus tendon insertion.
6. Moderate acromioclavicular osteoarthrosis. Bone marrow edema in the distal clavicle may be degenerative or secondary to distal clavicular osteolysis
Discussed with orthopedic recommended IR consult.
Discussed with IR recommended chest wall ultrasound which shows
1.8 cm circumscribed oval-shaped mass in the left anterior chest wall. Diagnostic possibilities are (1) a lipoma, (2) other benign soft tissue tumor, or (3) less likely an abscess.
Patient underwent L sternoclavicular joint aspirated under US guidance. Minimal fluid return.
Assessment/plan:
Severe sepsis with acute organ dysfunction/Klebsiella bacteremia/left pectoralis major muscle.
Source of infection is aspiration pneumonia/with Klebsiella bacteremia.
Acute organ dysfunction in form of acute hypoxic respiratory failure.
Patient meets sepsis criteria on admission
Heart rate 91-94 on day of admission
WBCs 16.4 on day of
Respiratory rate up to 28 dated
No documented fever.
Lactic acid 1.9
Source of infection is aspiration pneumonia
IV fluid
Patient initially started on Unasyn, infectious disease switched antibiotic to cefazolin.
Blood culture 09/07 2/2 bottles Klebsiella oxytoca.
Blood culture 09/08 2/2 bottles positive.
Blood culture 09/09 2/2 bottles positive.
Blood culture 09/10 1/2 bottles positive.
Blood culture 09/12, 09/13 NGTD
Appreciate infectious disease input.
WBCs improved
CT left shoulder shows no evidence of abscess or osteomyelitis.
TTE shows no evidence of vegetations
MRI left shoulder:
1. 1.4 x 0.5 cm ovoid rim-enhancing collection at the superficial margin of the left pectoralis major muscle. This is incompletely included in the [id number] on this exam, but could represent a small abscess given the clinical history.
2. No MRI evidence for osteomyelitis or septic arthritis.
3. Tear of the superior and posterior glenoid labrum with a 1.4 x 0.7 cm posterior paralabral cyst.
4. Moderate supraspinatus and infraspinatus tendinosis.
5. Tiny intrasubstance tear of the supraspinatus tendon insertion.
6. Moderate acromioclavicular osteoarthrosis. Bone marrow edema in the distal clavicle may be degenerative or secondary to distal clavicular osteolysis.
Discussed with orthopedic recommended IR consult.
Discussed with IR recommended chest wall ultrasound which shows
1.8 cm circumscribed oval-shaped mass in the left anterior chest wall. Diagnostic possibilities are (1) a lipoma, (2) other benign soft tissue tumor, or (3) less likely an abscess.
Patient underwent L sternoclavicular joint aspirated under US guidance. Minimal fluid return.
09/15
Discussed with infectious disease.
Plan to obtain CT abdomen pelvis.
Acute hypoxic respiratory insufficiency secondary to aspiration pneumonia
Mild bilateral upper lobe emphysema
Wean oxygen as tolerated
Continue antibiotic
Sputum sample if able to provide sample
Speech therapy evaluation ---> passed swallow eval
Incentive spirometry.
Left shoulder pain secondary to positional and osteoarthritis/left pectoralis major muscle.
Left upper chest wall pain
Left pectoralis major muscle strain/contusion
left shoulder CT scan with IV contrast showed:
No osseous fracture. No shoulder dislocation or separation.
Minor degenerative changes, including subtle calcific tendinosis of the peripheral/insertional supraspinatus tendon.
As far as visualized, no peripherally enhancing mass or collection to suggest abscess. No radiographic evidence to suggest osteomyelitis.
Progressive fusiform thickening of the left pectoralis major muscle especially medially, with associated mild soft tissue stranding of the subcutaneous fat. This could suggest soft tissue injury, such as muscle strain or contusion in the proper
clinical setting.
MRI left shoulder:
1. 1.4 x 0.5 cm ovoid rim-enhancing collection at the superficial margin of the left pectoralis major muscle. This is incompletely included in the [id number] on this exam, but could represent a small abscess given the clinical history.
2. No MRI evidence for osteomyelitis or septic arthritis.
3. Tear of the superior and posterior glenoid labrum with a 1.4 x 0.7 cm posterior paralabral cyst.
4. Moderate supraspinatus and infraspinatus tendinosis.
5. Tiny intrasubstance tear of the supraspinatus tendon insertion.
6. Moderate acromioclavicular osteoarthrosis. Bone marrow edema in the distal clavicle may be degenerative or secondary to distal clavicular osteolysis.
Discussed with orthopedic recommended IR consult.
Discussed with IR recommended chest wall ultrasound which shows
1.8 cm circumscribed oval-shaped mass in the left anterior chest wall. Diagnostic possibilities are (1) a lipoma, (2) other benign soft tissue tumor, or (3) less likely an abscess.
Patient underwent L sternoclavicular joint aspirated under US guidance. Minimal fluid return.d
Elevated troponin likely secondary to recent Watchman device and FELISHA
Troponin down trended.
Currently without any chest pain. Did not have chest pain at home
CKD stage III
Monitor creatinine. Currently at baseline.
Monitor creatinine and patient did receive IV contrast on admission. Hold lisinopril for additional 24 hours
Persistent atrial fibrillation status post Watchman device
Continue with metoprolol
Not on anticoagulation post Watchman device
Coronary artery disease
Chronic HFpEF
Continue with aspirin, beta-conchis, statin
Restart Lasix
Primary hypertension
Continue with Norvasc, and metoprolol
Restart Lasix. Blood pressure controlled.
Hyperlipidemia
Continue with statin
Osteoarthritis
Chronic opiate usage on daily basis
Tylenol as needed
Continue tramadol home regimen
Bowel regimen if needed
Hypokalemia
Replete as needed
CODE STATUS: Full code
DVT prophylaxis: Heparin
Diet: Cardiac diet.
Total time spent on today's encounter was 65 minutes which included time spent in counseling the patient/family regarding diagnosis and treatment plan as listed above, goals of care, and symptom management. Case was discussed with nursing staff,
specialists, and care coordinators/case management. All labs and imaging personally reviewed by me. Remainder the time spent in detailed review of previous records, lab data, imaging, and other medical provider documentation.
Anticipated Discharge: Within 24 hours
Subjective/Interval History
-
Date of Service: September 15, 2024
Patient seen and examined at bedside, improved left shoulder pain denies any chest pain or shortness of breath, no abdominal pain, no nausea, no vomiting, no diarrhea or constipation.
Objective Data
-
Vital Signs:
Vital Signs
Temp Pulse Resp BP Pulse Ox
98.2 F 77 18 112/70 94
09/15/24 07:25 09/15/24 08:12 09/15/24 07:25 09/15/24 08:12 09/15/24 08:23
I&O
09/14/24 09/15/24 09/16/24
06:59 06:59 06:59
Intake Total 1500 / 1500
Balance 1500 / 1500
Physical Exam
-
General: Well Developed, Well Nourished, No Apparent Distress and Comfortable
HEENT: Normocephalic, Atraumatic, Moist Mucous Membranes, No Ptosis, PERRLA and Nose Appears Normal
Respiratory: Rales, Rhonchi and Non Labored Respirations
Cardiac: Regular Rhythm and S1/S2
Breast: Deferred by me
GI: Soft, Nontender, Nondistended and Normal Bowel Sounds
Genito-urinary: No Costovertebral Tender
Musculoskeletal: No Clubbing, No Cyanosis, No Edema and Other (Left shoulder limitation of movement, tender left shoulder and left upper chest wall.)
Skin: Warm
Neuro: Awake, Alert, Oriented, AO x 3 and No Motor Deficits
Psych: Calm
Data Reviewed
-
Diagnostic Radiology: Image personally visualized and interpreted and Report Reviewed by me
CT Scan: Image personally visualized and interpreted and Report Reviewed by me
Ultrasound: Image personally visualized and interpreted and Report Reviewed by me
MRI: Image personally visualized and interpreted and Report Reviewed by me
Medical Tests (Nuc Med, Echo etc): Image personally visualized and interpreted and Report Reviewed by me
Labs: Labs Reviewed by me
Old Records: Reviewed
[2024-09-15] MEDS: OMNIPAQUE 50 ML PO (11:38)
--- NOTE | 2024-09-15 13:05 | W.PN.ID1 ---
Date of Service
Date of Service: September 15, 2024
Today's Communication
-Continue cefazolin for now.
-Recommend CT a/p with po and IV contrast to assess for GI/intra-abd source of Klebsiella.
-If CT a/p unremarkable, can transition cefazolin to cephalexin 1000mg po q8h x 14 more days.
Assessment / Plan
Sustained Klebsiella Bacteremia (7 sets of blood cx's) of unclear etiology
. Onset after FELISHA (09/05) to follow-up Watchman device
Left shoulder pain post FELISHA procedure
. MRI Tear of the superior and posterior glenoid labrum and tendinosis
Aspiration Pneumonia
Leukocytosis -resolved
CKD
Watchman implant 06/12 - denies any other hardware
No prior colonoscopy - reports he's had serial FIT testing
Recommendations:
-Ucx neg
- CT L shoulder - suspected contusion of the L shoulder
- CT chest with mild pneumonia 09/07 - unlikely to be the cause of sustained bacteremia
- TTE nonrevealing
- Left pectoralis muscle collection felt to be lipoma
- 09/14 IR attempted to aspirate left SCJ with only minimal return of blood-tinged fluid, less than 1 mL. This was admixed with 2 mL preservative-free saline and sent for microbiology. Cx pending.
- Bacteremia has cleared from 09/12/24.
-Continue cefazolin for now.
-Recommend CT a/p with po and IV contrast to assess for GI/intra-abd source of Klebsiella.
-If CT a/p unremarkable, can transition cefazolin to cephalexin 1000mg po q8h x 14 more days.
����������������������������������������������������������
Chief Complaint
-: Bacteremia
Subjective / Review of Systems
No new complaints today. No cough. L shoulder pain stable.
No abd pain.
Vital Signs / Physical Exam
Vital Signs
Vital Signs
Temp Pulse Resp BP Pulse Ox
98.2 F 77 18 112/70 94
09/15/24 07:25 09/15/24 08:12 09/15/24 07:25 09/15/24 08:12 09/15/24 08:23
Physical Exam
Constitutional: No Acute Distress and Comfortable
Eyes: No Conjunctival Hemorrhage and Sclera Anicteric
Cardiovascular: Regular Rate and S1/S2
Pulmonary: Clear
Gastrointestinal: Soft, Non Tender and Non Distended
Neurological: AO x 3
Objective Data
Lab Data
Lab Results
09/13/24 06:45
09/12/24 05:54
Estimated Creat Clear 54 ml/min 09/12/24 05:54
Lactic Acid Cancelled 09/07/24 11:15
Most recent labs reviewed.
Micro Results:
09/12/24 10:12 Blood Culture - Preliminary
Blood/Venous No Growth in 72 hours- Final report to follow
09/10/24 09:59 Blood Culture - Final
Blood/Venous No Growth - Final Report
09/14/24 09:15 Blood Culture - Preliminary
Blood/Venous No Growth in 24 hours- Final report to follow
09/12/24 09:38 Blood Culture - Preliminary
Blood/Venous No Growth in 72 hours- Final report to follow
09/14/24 08:09 Blood Culture - Preliminary
Blood/Venous No Growth in 24 hours- Final report to follow
09/14/24 18:28 Body Fluid Culture - Pending
Joint Fluid Gram Stain - Pending
09/10/24 10:37 Blood Culture - Preliminary
Blood/Venous Klebsiella oxytoca
Gram Stain - Preliminary
09/09/24 11:40 Blood Culture - Preliminary
Blood/Venous Klebsiella oxytoca
Gram Stain - Preliminary
09/09/24 10:36 Blood Culture - Preliminary
Blood/Venous Klebsiella oxytoca
Gram Stain - Preliminary
09/08/24 09:04 Blood Culture - Preliminary
Blood/Venous Klebsiella oxytoca
Gram Stain - Preliminary
09/09/24 14:26 Urine Culture - Final
Urine NO GROWTH
09/08/24 09:43 Blood Culture - Preliminary
Blood/Venous Klebsiella oxytoca
Gram Stain - Preliminary
09/07/24 07:08 Blood Culture - Final
Blood/Venous Klebsiella oxytoca
Gram Stain - Final
09/07/24 07:24 Blood Culture - Final
Blood/Venous Klebsiella oxytoca
Gram Stain - Final
Imaging:
09/13/2024 MRI left upper extremity: At the superficial margin of the left pectoralis major muscle there is a 1.4 x 0.5 cm ovoid rim-enhancing collection. On the current study it is incompletely included in the [id number]. No MRI evidence for
osteomyelitis or septic arthritis. A tear of the superior and posterior glenoid labrum with a 1.4 x 0.7 cm posterior paralabral cyst. Moderate supraspinatus and infraspinatus tendinosis noted. Moderate acromioclavicular osteoarthrosis. Please
see full dictation for additional detail.
09/10/2024 CT upper extremity: No osseous fracture. No shoulder dislocation or separation. Minor degenerative changes, including subtle calcific tendinosis of the peripheral/insertional supraspinatus tendon. As far as visualized, no peripherally
enhancing mass or collection to suggest abscess. No radiographic evidence to suggest osteomyelitis. Progressive fusiform thickening of the left pectoralis major muscle especially medially, with associated mild soft tissue stranding of the
subcutaneous fat. This could suggest soft tissue injury, such as muscle strain or contusion in the proper clinical setting.
Care Review
Plan reviewed with: Physician (Dr. Vidales)
--- NOTE | 2024-09-15 15:32 | CM ---
CM continues to follow; plan for discharge to home with VN when medically ready.
VN Fax for records at discharge: [phone]
[2024-09-15 15:35] VITALS: BP 154/70
[2024-09-15] MEDS: LIPITOR 10 MG PO (21:16)
[2024-09-15 23:21] VITALS: BP 140/68
[2024-09-16] MEDS: ANCEF 10 IV (03:09)
[2024-09-16 05:31] VITALS: BMI 33.5
[2024-09-16 07:04] LABS: Hematocrit 42.1 % (39.0-52.0); Hemoglobin 14.5 g/dL (13.0-18.0); Mean Corp Hgb Conc. 34.4 g/dL (33.0-37.0); Mean Corpuscular Hgb 31.4 pg (27.0-31.0); Mean Corpuscular Volume 91.1 fL (80.0-94.0); Mean Platelet Volume 9.5 fL (7.4-10.4); Platelet Count 337 10^3/uL (130-400); Red Blood Cell Count 4.62 10^6/uL (4.70-6.10); Red Cell Dist. Width 12.7 % (11.5-14.5); White Blood Cell Count 14.4 10^3/uL (4.8-10.8)
[2024-09-16 07:35] VITALS: BP 144/75
[2024-09-16 07:53] LABS: Blood Urea Nitrogen 25 mg/dl (9-20); Calcium 9.1 mg/dl (8.4-10.2); Carbon Dioxide 31 mmol/L (22-30); Chloride 102 mmol/L (98-107); Estimated Creatinine Clearance 54 ml/min; Glucose 207 mg/dl (70-99); Potassium 4.1 mmol/L (3.5-5.1); Sodium 136 mmol/L (135-145); eGFR > 60.00
[2024-09-16] MEDS: ULTRAM 50 MG PO (08:28)
[2024-09-16] MEDS: LIDOCAINE 4% PATCH 1 PATCH TOPICAL (08:29)
[2024-09-16] MEDS: TOPROL XL 25 MG PO (08:29)
[2024-09-16] MEDS: COLACE 100 MG PO (08:30)
[2024-09-16] MEDS: NORVASC 5 MG PO (08:30)
[2024-09-16] MEDS: LASIX 40 MG PO (08:30)
[2024-09-16] MEDS: ASPIR LOW (ENTERIC COATED) 81 MG PO (08:30)
[2024-09-16] MEDS: PROTONIX 40 MG PO (08:30)
--- NOTE | 2024-09-16 09:37 | W.PN.ID1 ---
Date of Service
Date of Service: September 16, 2024
Today's Communication
can transition cefazolin to cephalexin 1000mg po q8h x 14 more days.
Repeat blood cx's 2 weeks after completion of abx.
Assessment / Plan
Sustained Klebsiella Bacteremia (7 sets of blood cx's) of unclear etiology
. Onset after FELISHA (09/05) to follow-up Watchman device
Left shoulder pain post FELISHA procedure
. MRI Tear of the superior and posterior glenoid labrum and tendinosis
Aspiration Pneumonia
Leukocytosis -resolved
CKD
Watchman implant 06/12 - denies any other hardware
No prior colonoscopy - reports he's had serial FIT testing
Recommendations:
-Ucx neg
- CT L shoulder - suspected contusion of the L shoulder
- CT chest with mild pneumonia 09/07 - unlikely to be the cause of sustained bacteremia
- TTE nonrevealing
- Left pectoralis muscle collection felt to be lipoma
- 09/14 IR attempted to aspirate left SCJ with only minimal return of blood-tinged fluid, less than 1 mL. This was admixed with 2 mL preservative-free saline and sent for microbiology. Cx neg to date.
- CT a/p with po and IV contrast: no acute pathology
- Bacteremia has cleared from 09/12/24.
- can transition cefazolin to cephalexin 1000mg po q8h x 14 more days.
Repeat blood cx's 2 weeks after completion of abx.
����������������������������������������������������������
Chief Complaint
-: Bacteremia
Subjective / Review of Systems
No new complaints. Feels well.
Vital Signs / Physical Exam
Vital Signs
Vital Signs
Temp Pulse Resp BP Pulse Ox
98.1 F 69 16 144/75 94
09/16/24 07:35 09/16/24 08:29 09/16/24 07:35 09/16/24 08:29 09/16/24 08:40
Physical Exam
Constitutional: No Acute Distress and Comfortable
Eyes: No Conjunctival Hemorrhage and Sclera Anicteric
Cardiovascular: Regular Rate and S1/S2
Pulmonary: Clear
Gastrointestinal: Soft, Non Tender and Non Distended
Genito-Urinary: Negative CVA Tenderness
Neurological: AO x 3
Objective Data
Lab Data
Lab Results
09/16/24 06:20
09/16/24 06:20
Estimated Creat Clear 54 ml/min 09/16/24 06:20
Lactic Acid Cancelled 09/07/24 11:15
Most recent labs reviewed.
Micro Results:
09/08/24 09:43 Blood Culture - Final
Blood/Venous Klebsiella oxytoca
Gram Stain - Final
09/08/24 09:04 Blood Culture - Final
Blood/Venous Klebsiella oxytoca
Gram Stain - Final
09/14/24 08:09 Blood Culture - Preliminary
Blood/Venous No Growth in 48 hours- Final report to follow
09/14/24 18:28 Body Fluid Culture - Pending
Joint Fluid Gram Stain - Preliminary
09/12/24 10:12 Blood Culture - Preliminary
Blood/Venous No Growth in 72 hours- Final report to follow
09/10/24 09:59 Blood Culture - Final
Blood/Venous No Growth - Final Report
09/14/24 09:15 Blood Culture - Preliminary
Blood/Venous No Growth in 24 hours- Final report to follow
09/12/24 09:38 Blood Culture - Preliminary
Blood/Venous No Growth in 72 hours- Final report to follow
09/10/24 10:37 Blood Culture - Preliminary
Blood/Venous Klebsiella oxytoca
Gram Stain - Preliminary
09/09/24 11:40 Blood Culture - Preliminary
Blood/Venous Klebsiella oxytoca
Gram Stain - Preliminary
09/09/24 10:36 Blood Culture - Preliminary
Blood/Venous Klebsiella oxytoca
Gram Stain - Preliminary
09/09/24 14:26 Urine Culture - Final
Urine NO GROWTH
09/07/24 07:08 Blood Culture - Final
Blood/Venous Klebsiella oxytoca
Gram Stain - Final
09/07/24 07:24 Blood Culture - Final
Blood/Venous Klebsiella oxytoca
Gram Stain - Final
Imaging:
09/15/24 CT a/p: Mild left lower lobe consolidation probably atelectasis. Tiny left pleural effusion. Mild lingular and bilateral lower lobe atelectasis versus scarring. Bilateral simple renal cysts. Grossly stable. Moderate fecal matter throughout
the colon.
Diverticulosis. No evidence of acute diverticulitis. Stable large right inguinal hernia containing a portion of the right ureter. No hydronephrosis.
09/13/2024 MRI left upper extremity: At the superficial margin of the left pectoralis major muscle there is a 1.4 x 0.5 cm ovoid rim-enhancing collection. On the current study it is incompletely included in the [id number]. No MRI evidence for
osteomyelitis or septic arthritis. A tear of the superior and posterior glenoid labrum with a 1.4 x 0.7 cm posterior paralabral cyst. Moderate supraspinatus and infraspinatus tendinosis noted. Moderate acromioclavicular osteoarthrosis. Please
see full dictation for additional detail.
09/10/2024 CT upper extremity: No osseous fracture. No shoulder dislocation or separation. Minor degenerative changes, including subtle calcific tendinosis of the peripheral/insertional supraspinatus tendon. As far as visualized, no peripherally
enhancing mass or collection to suggest abscess. No radiographic evidence to suggest osteomyelitis. Progressive fusiform thickening of the left pectoralis major muscle especially medially, with associated mild soft tissue stranding of the
subcutaneous fat. This could suggest soft tissue injury, such as muscle strain or contusion in the proper clinical setting.
--- NOTE | 2024-09-16 10:23 | W.PN.HOSP.TC ---
Today's Communication/Plan
-
Discharge home today
Assessment / Plan
Assessment / Plan
Impression:
78-year-old male past medical history of A-fib status post Watchman device underwent FELISHA last week presenting with fever chills and left shoulder pain.��Found to have aspiration pneumonia and also with gram-negative bacteremia.��On IV
antibiotics.��ID following.��Since still persistent bacteremia.
left shoulder CT scan with IV contrast showed:
No osseous fracture. No shoulder dislocation or separation.
Minor degenerative changes, including subtle calcific tendinosis of the peripheral/insertional supraspinatus tendon.
As far as visualized, no peripherally enhancing mass or collection to suggest abscess. No radiographic evidence to suggest osteomyelitis.
Progressive fusiform thickening of the left pectoralis major muscle especially medially, with associated mild soft tissue stranding of the subcutaneous fat. This could suggest soft tissue injury, such as muscle strain or contusion in the proper
clinical setting
Continue to have positive blood culture till 09/10
Repeat blood culture afterward with no growth.
MRI left shoulder:
1. 1.4 x 0.5 cm ovoid rim-enhancing collection at the superficial margin of the left pectoralis major muscle. This is incompletely included in the [id number] on this exam, but could represent a small abscess given the clinical history.
2. No MRI evidence for osteomyelitis or septic arthritis.
3. Tear of the superior and posterior glenoid labrum with a 1.4 x 0.7 cm posterior paralabral cyst.
4. Moderate supraspinatus and infraspinatus tendinosis.
5. Tiny intrasubstance tear of the supraspinatus tendon insertion.
6. Moderate acromioclavicular osteoarthrosis. Bone marrow edema in the distal clavicle may be degenerative or secondary to distal clavicular osteolysis
Discussed with orthopedic recommended IR consult.
Discussed with IR recommended chest wall ultrasound which shows
1.8 cm circumscribed oval-shaped mass in the left anterior chest wall. Diagnostic possibilities are (1) a lipoma, (2) other benign soft tissue tumor, or (3) less likely an abscess.
Patient underwent L sternoclavicular joint aspirated under US guidance. Minimal fluid return.
Infectious disease commending CT abdomen/pelvis which came back shows no acute finding.
Infectious disease commending discharge the patient on cephalexin 1000 mg every 8 hours for 14 days.
Repeat blood culture 2 weeks after completion of end of antibiotics.
She will be discharged home today with home health nurse.
Assessment/plan:
Severe sepsis with acute organ dysfunction/Klebsiella bacteremia/left pectoralis major muscle.
Source of infection is aspiration pneumonia/with Klebsiella bacteremia.
Acute organ dysfunction in form of acute hypoxic respiratory failure.
Patient meets sepsis criteria on admission
Heart rate 91-94 on day of admission
WBCs 16.4 on day of
Respiratory rate up to 28 dated
No documented fever.
Lactic acid 1.9
Source of infection is aspiration pneumonia
IV fluid
Patient initially started on Unasyn, infectious disease switched antibiotic to cefazolin.
Blood culture 09/07 2/2 bottles Klebsiella oxytoca.
Blood culture 09/08 2/2 bottles positive.
Blood culture 09/09 2/2 bottles positive.
Blood culture 09/10 1/2 bottles positive.
Blood culture 09/12, 09/13 NGTD
Appreciate infectious disease input.
WBCs improved
CT left shoulder shows no evidence of abscess or osteomyelitis.
TTE shows no evidence of vegetations
MRI left shoulder:
1. 1.4 x 0.5 cm ovoid rim-enhancing collection at the superficial margin of the left pectoralis major muscle. This is incompletely included in the [id number]-ro-[id number] on this exam, but could represent a small abscess given the clinical history.
2. No MRI evidence for osteomyelitis or septic arthritis.
3. Tear of the superior and posterior glenoid labrum with a 1.4 x 0.7 cm posterior paralabral cyst.
4. Moderate supraspinatus and infraspinatus tendinosis.
5. Tiny intrasubstance tear of the supraspinatus tendon insertion.
6. Moderate acromioclavicular osteoarthrosis. Bone marrow edema in the distal clavicle may be degenerative or secondary to distal clavicular osteolysis.
Discussed with orthopedic recommended IR consult.
Discussed with IR recommended chest wall ultrasound which shows
1.8 cm circumscribed oval-shaped mass in the left anterior chest wall. Diagnostic possibilities are (1) a lipoma, (2) other benign soft tissue tumor, or (3) less likely an abscess.
Patient underwent L sternoclavicular joint aspirated under US guidance. Minimal fluid return.
09/15
Discussed with infectious disease.
Plan to obtain CT abdomen pelvis.
09/16
Discharge home on cephalexin for 14 days
Acute hypoxic respiratory insufficiency secondary to aspiration pneumonia
Mild bilateral upper lobe emphysema
Wean oxygen as tolerated
Continue antibiotic
Sputum sample if able to provide sample
Speech therapy evaluation ---> passed swallow eval
Incentive spirometry.
Left shoulder pain secondary to positional and osteoarthritis/left pectoralis major muscle.
Left upper chest wall pain
Left pectoralis major muscle strain/contusion
left shoulder CT scan with IV contrast showed:
No osseous fracture. No shoulder dislocation or separation.
Minor degenerative changes, including subtle calcific tendinosis of the peripheral/insertional supraspinatus tendon.
As far as visualized, no peripherally enhancing mass or collection to suggest abscess. No radiographic evidence to suggest osteomyelitis.
Progressive fusiform thickening of the left pectoralis major muscle especially medially, with associated mild soft tissue stranding of the subcutaneous fat. This could suggest soft tissue injury, such as muscle strain or contusion in the proper
clinical setting.
MRI left shoulder:
1. 1.4 x 0.5 cm ovoid rim-enhancing collection at the superficial margin of the left pectoralis major muscle. This is incompletely included in the [id number] on this exam, but could represent a small abscess given the clinical history.
2. No MRI evidence for osteomyelitis or septic arthritis.
3. Tear of the superior and posterior glenoid labrum with a 1.4 x 0.7 cm posterior paralabral cyst.
4. Moderate supraspinatus and infraspinatus tendinosis.
5. Tiny intrasubstance tear of the supraspinatus tendon insertion.
6. Moderate acromioclavicular osteoarthrosis. Bone marrow edema in the distal clavicle may be degenerative or secondary to distal clavicular osteolysis.
Discussed with orthopedic recommended IR consult.
Discussed with IR recommended chest wall ultrasound which shows
1.8 cm circumscribed oval-shaped mass in the left anterior chest wall. Diagnostic possibilities are (1) a lipoma, (2) other benign soft tissue tumor, or (3) less likely an abscess.
Patient underwent L sternoclavicular joint aspirated under US guidance. Minimal fluid return.d
Elevated troponin likely secondary to recent Watchman device and FELISHA
Troponin down trended.
Currently without any chest pain. Did not have chest pain at home
CKD stage III
Monitor creatinine. Currently at baseline.
Monitor creatinine and patient did receive IV contrast on admission. Hold lisinopril for additional 24 hours
Persistent atrial fibrillation status post Watchman device
Continue with metoprolol
Not on anticoagulation post Watchman device
Coronary artery disease
Chronic HFpEF
Continue with aspirin, beta-conchis, statin
Restart Lasix
Primary hypertension
Continue with Norvasc, and metoprolol
Restart Lasix. Blood pressure controlled.
Hyperlipidemia
Continue with statin
Osteoarthritis
Chronic opiate usage on daily basis
Tylenol as needed
Continue tramadol home regimen
Bowel regimen if needed
Hypokalemia
Replete as needed
CODE STATUS: Full code
DVT prophylaxis: Heparin
Diet: Cardiac diet.
Total time spent on today's encounter was 65 minutes which included time spent in counseling the patient/family regarding diagnosis and treatment plan as listed above, goals of care, and symptom management. Case was discussed with nursing staff,
specialists, and care coordinators/case management. All labs and imaging personally reviewed by me. Remainder the time spent in detailed review of previous records, lab data, imaging, and other medical provider documentation.
Anticipated Discharge: Today
Subjective/Interval History
-
Date of Service: September 16, 2024
Patient seen and examined at bedside, denies any chest pain or shortness of breath, no abdominal pain, no nausea, no vomiting, no diarrhea or constipation.
Improved shoulder pain.
Objective Data
-
Labs:
Laboratory Results
09/16/24
06:20
WBC 14.4 H
Hgb 14.5
Hct 42.1
Plt Count 337 D
Sodium 136
Potassium 4.1
Chloride 102
Carbon Dioxide 31 H
BUN 25 H
Creatinine 1.2
Glucose 207 H
Calcium 9.1
Vital Signs:
Vital Signs
Temp Pulse Resp BP Pulse Ox
98.1 F 69 16 144/75 94
09/16/24 07:35 09/16/24 08:29 09/16/24 07:35 09/16/24 08:29 09/16/24 08:40
I&O
09/15/24 09/16/24 09/17/24
06:59 06:59 06:59
Intake Total 1939
Balance 1939
Physical Exam
-
General: Well Developed, Well Nourished, No Apparent Distress and Comfortable
HEENT: Normocephalic, Atraumatic, Moist Mucous Membranes, No Ptosis, PERRLA and Nose Appears Normal
Respiratory: Rales, Rhonchi and Non Labored Respirations
Cardiac: Regular Rhythm and S1/S2
Breast: Deferred by me
GI: Soft, Nontender, Nondistended and Normal Bowel Sounds
Genito-urinary: No Costovertebral Tender
Musculoskeletal: No Clubbing, No Cyanosis, No Edema and Other (Left shoulder limitation of movement, tender left shoulder and left upper chest wall.)
Skin: Warm
Neuro: Awake, Alert, Oriented, AO x 3 and No Motor Deficits
Psych: Calm
Data Reviewed
-
Diagnostic Radiology: Image personally visualized and interpreted and Report Reviewed by me
CT Scan: Image personally visualized and interpreted and Report Reviewed by me
Ultrasound: Image personally visualized and interpreted and Report Reviewed by me
MRI: Image personally visualized and interpreted and Report Reviewed by me
Medical Tests (Nuc Med, Echo etc): Image personally visualized and interpreted and Report Reviewed by me
Labs: Labs Reviewed by me
Old Records: Reviewed
--- NOTE | 2024-09-16 10:25 | W.DCSUMMARY ---
Discharge Summary
Discharge Data
Date of Admission: 09/07/24
Date of Discharge: 09/16/24
-
Pending Results: No
Hospital Course
Hospital course
78-year-old male past medical history of A-fib status post Watchman device underwent FELISHA last week presenting with fever chills and left shoulder pain.��Found to have aspiration pneumonia and also with gram-negative bacteremia.��On IV
antibiotics.��ID following.��Since still persistent bacteremia.
left shoulder CT scan with IV contrast showed:
No osseous fracture. No shoulder dislocation or separation.
Minor degenerative changes, including subtle calcific tendinosis of the peripheral/insertional supraspinatus tendon.
As far as visualized, no peripherally enhancing mass or collection to suggest abscess. No radiographic evidence to suggest osteomyelitis.
Progressive fusiform thickening of the left pectoralis major muscle especially medially, with associated mild soft tissue stranding of the subcutaneous fat. This could suggest soft tissue injury, such as muscle strain or contusion in the proper
clinical setting
Continue to have positive blood culture till 09/10
Repeat blood culture afterward with no growth.
MRI left shoulder:
1. 1.4 x 0.5 cm ovoid rim-enhancing collection at the superficial margin of the left pectoralis major muscle. This is incompletely included in the [id number] on this exam, but could represent a small abscess given the clinical history.
2. No MRI evidence for osteomyelitis or septic arthritis.
3. Tear of the superior and posterior glenoid labrum with a 1.4 x 0.7 cm posterior paralabral cyst.
4. Moderate supraspinatus and infraspinatus tendinosis.
5. Tiny intrasubstance tear of the supraspinatus tendon insertion.
6. Moderate acromioclavicular osteoarthrosis. Bone marrow edema in the distal clavicle may be degenerative or secondary to distal clavicular osteolysis
Discussed with orthopedic recommended IR consult.
Discussed with IR recommended chest wall ultrasound which shows
1.8 cm circumscribed oval-shaped mass in the left anterior chest wall. Diagnostic possibilities are (1) a lipoma, (2) other benign soft tissue tumor, or (3) less likely an abscess.
Patient underwent L sternoclavicular joint aspirated under US guidance. Minimal fluid return.
Infectious disease commending CT abdomen/pelvis which came back shows no acute finding.
Infectious disease commending discharge the patient on cephalexin 1000 mg every 8 hours for 14 days.
Repeat blood culture 2 weeks after completion of end of antibiotics.
She will be discharged home today with home health nurse.
During hospitalization patient was treated from the following
Severe sepsis with acute organ dysfunction/Klebsiella bacteremia/left pectoralis major muscle.
Source of infection is aspiration pneumonia/with Klebsiella bacteremia.
Acute organ dysfunction in form of acute hypoxic respiratory failure.
Patient meets sepsis criteria on admission
Heart rate 91-94 on day of admission
WBCs 16.4 on day of
Respiratory rate up to 28 dated
No documented fever.
Lactic acid 1.9
Source of infection is aspiration pneumonia
IV fluid
Patient initially started on Unasyn, infectious disease switched antibiotic to cefazolin.
Blood culture 09/07 2/2 bottles Klebsiella oxytoca.
Blood culture 09/08 2/2 bottles positive.
Blood culture 09/09 2/2 bottles positive.
Blood culture 09/10 1/2 bottles positive.
Blood culture 09/12, 09/13 NGTD
Appreciate infectious disease input.
WBCs improved
CT left shoulder shows no evidence of abscess or osteomyelitis.
TTE shows no evidence of vegetations
MRI left shoulder:
1. 1.4 x 0.5 cm ovoid rim-enhancing collection at the superficial margin of the left pectoralis major muscle. This is incompletely included in the [id number] on this exam, but could represent a small abscess given the clinical history.
2. No MRI evidence for osteomyelitis or septic arthritis.
3. Tear of the superior and posterior glenoid labrum with a 1.4 x 0.7 cm posterior paralabral cyst.
4. Moderate supraspinatus and infraspinatus tendinosis.
5. Tiny intrasubstance tear of the supraspinatus tendon insertion.
6. Moderate acromioclavicular osteoarthrosis. Bone marrow edema in the distal clavicle may be degenerative or secondary to distal clavicular osteolysis.
Discussed with orthopedic recommended IR consult.
Discussed with IR recommended chest wall ultrasound which shows
1.8 cm circumscribed oval-shaped mass in the left anterior chest wall. Diagnostic possibilities are (1) a lipoma, (2) other benign soft tissue tumor, or (3) less likely an abscess.
Patient underwent L sternoclavicular joint aspirated under US guidance. Minimal fluid return.
09/15
Discussed with infectious disease.
Plan to obtain CT abdomen pelvis.
09/16
Discharge home on cephalexin for 14 days
Acute hypoxic respiratory insufficiency secondary to aspiration pneumonia
Mild bilateral upper lobe emphysema
Wean oxygen as tolerated
Continue antibiotic
Sputum sample if able to provide sample
Speech therapy evaluation ---> passed swallow eval
Incentive spirometry.
Left shoulder pain secondary to positional and osteoarthritis/left pectoralis major muscle.
Left upper chest wall pain
Left pectoralis major muscle strain/contusion
left shoulder CT scan with IV contrast showed:
No osseous fracture. No shoulder dislocation or separation.
Minor degenerative changes, including subtle calcific tendinosis of the peripheral/insertional supraspinatus tendon.
As far as visualized, no peripherally enhancing mass or collection to suggest abscess. No radiographic evidence to suggest osteomyelitis.
Progressive fusiform thickening of the left pectoralis major muscle especially medially, with associated mild soft tissue stranding of the subcutaneous fat. This could suggest soft tissue injury, such as muscle strain or contusion in the proper
clinical setting.
MRI left shoulder:
1. 1.4 x 0.5 cm ovoid rim-enhancing collection at the superficial margin of the left pectoralis major muscle. This is incompletely included in the [id number]-[id number] on this exam, but could represent a small abscess given the clinical history.
2. No MRI evidence for osteomyelitis or septic arthritis.
3. Tear of the superior and posterior glenoid labrum with a 1.4 x 0.7 cm posterior paralabral cyst.
4. Moderate supraspinatus and infraspinatus tendinosis.
5. Tiny intrasubstance tear of the supraspinatus tendon insertion.
6. Moderate acromioclavicular osteoarthrosis. Bone marrow edema in the distal clavicle may be degenerative or secondary to distal clavicular osteolysis.
Discussed with orthopedic recommended IR consult.
Discussed with IR recommended chest wall ultrasound which shows
1.8 cm circumscribed oval-shaped mass in the left anterior chest wall. Diagnostic possibilities are (1) a lipoma, (2) other benign soft tissue tumor, or (3) less likely an abscess.
Patient underwent L sternoclavicular joint aspirated under US guidance. Minimal fluid return.d
Elevated troponin likely secondary to recent Watchman device and FELISHA
Troponin down trended.
Currently without any chest pain. Did not have chest pain at home
CKD stage III
Monitor creatinine. Currently at baseline.
Monitor creatinine and patient did receive IV contrast on admission. Hold lisinopril for additional 24 hours
Persistent atrial fibrillation status post Watchman device
Continue with metoprolol
Not on anticoagulation post Watchman device
Coronary artery disease
Chronic HFpEF
Continue with aspirin, beta-conchis, statin
Restart Lasix
Primary hypertension
Continue with Norvasc, and metoprolol
Restart Lasix. Blood pressure controlled.
Hyperlipidemia
Continue with statin
Osteoarthritis
Chronic opiate usage on daily basis
Tylenol as needed
Continue tramadol home regimen
Bowel regimen if needed
Hypokalemia
Replete as needed
CODE STATUS: Full code
DVT prophylaxis: Heparin
Diet: Cardiac diet.
Total time spent on today's encounter was 40 minutes which included time spent in counseling the patient/family regarding diagnosis and treatment plan as listed above, goals of care, and symptom management. Case was discussed with nursing staff,
specialists, and care coordinators/case management. All labs and imaging personally reviewed by me. Remainder the time spent in detailed review of previous records, lab data, imaging, and other medical provider documentation.
Anticipated Discharge: Today
Discharge Plan
-
Patient Disposition: Home with Home Care
Discharge Diagnosis/Procedures: Aspiration pneumonia.
Positive blood culture.
Atrial fibrillation
Hypertension
Coronary artery disease
Diet: Low Cholesterol
Activity: With assistance and As tolerated
Other Services: PT and OT
Referrals:
Yvon Feng MD [Family Provider, [facility]]
Prescriptions:
New
cyclobenzaprine 10 mg Tablet
10 mg PO Q8HPRN PRN (Reason: muscle spasm) Qty: 20 0RF
lidocaine 4 % Adhesive Patch,Medicated
1 patch topical DAILY Qty: 30 0RF
oxycodone 5 mg Tablet
5 mg PO Q4HPRN PRN (Reason: severe pain) 5 Days Qty: 15 0RF
acetaminophen 325 mg Tablet
650 mg PO Q6HPRN PRN (Reason: mild pain/ fever>100.5F) Qty: 0 0RF
cephalexin 500 mg tablet
1,000 mg PO Q8H 14 Days Qty: 84 0RF
(DME) blood culture
See Rx Instructions .Route .MEDSUPPLY Qty: 1 0RF
Rx Instructions:
to be done one week after completion of Antibiotics.
Continued
simvastatin 5 mg Tablet
5 mg PO HS
tramadol 50 mg Tablet
50 mg PO TID
furosemide 40 mg Tablet
40 mg PO DAILY Qty: 30 0RF
omeprazole 20 mg Capsule,Delayed Release(Dr/Ec)
20 mg PO DAILY
benazepril 20 mg tablet
20 mg PO DAILY
amlodipine 5 mg Tablet
5 mg PO DAILY
metoprolol succinate 25 mg tablet extended release 24 hr
25 mg PO DAILY
aspirin 81 mg Tablet,Delayed Release (Dr/Ec)
81 mg PO DAILY
Discharge Orders:
Discharge Patient (As Directed); Ordered 09/16/24
Ordered By: Santiago Vidales
Discharge Date and Time
Discharge Date/Time: 09/16/24 10:19
Print Language: SERBIAN
== END 2024-09-16 10:19 | disposition home health service (06) | DRG 871 ==
LOC: 2 NORTH 11:08
PROVIDERS: Physician Assistant; Radiology Vascular & Interventional Radiology; ADMITTING PHYSICIAN Hospitalist; ATTENDING PHYSICIAN General Practice; CONSULT PHYSICIAN Student in an Organized Health Care Education/Training Program; EMERGENCY PHYSICIAN Student in an Organized Health Care Education/Training Program; FAMILY PHYSICIAN Family Medicine
PROC: 0J9F3ZZ Drainage of Left Upper Arm Subcutaneous Tissue and Fascia, Percutaneous Approach (ICD-10-PCS; 2024-09-15)
DX: A41.59 Other Gram-negative sepsis (principal); J18.9 Pneumonia, unspecified organism; J69.0 Pneumonitis due to inhalation of food and vomit; J96.01 Acute respiratory failure with hypoxia; I48.19 Other persistent atrial fibrillation; I13.0 Hypertensive heart and chronic kidney disease with heart failure and stage 1 through stage 4 chronic kidney disease, or unspecified chronic kidney disease; I50.32 Chronic diastolic (congestive) heart failure; F11.20 Opioid dependence, uncomplicated; R65.20 Severe sepsis without septic shock; M19.012 Primary osteoarthritis, left shoulder; B96.1 Klebsiella pneumoniae [K. pneumoniae] as the cause of diseases classified elsewhere; S40.012A Contusion of left shoulder, initial encounter; E78.5 Hyperlipidemia, unspecified; E87.6 Hypokalemia; I25.10 Atherosclerotic heart disease of native coronary artery without angina pectoris; N18.30 Chronic kidney disease, stage 3 unspecified; E11.22 Type 2 diabetes mellitus with diabetic chronic kidney disease; Z95.818 Presence of other cardiac implants and grafts; Z79.82 Long term (current) use of aspirin; E66.9 Obesity, unspecified; Z68.34 Body mass index [BMI] 34.0-34.9, adult; E87.5 Hyperkalemia; G25.81 Restless legs syndrome; G89.4 Chronic pain syndrome; J43.9 Emphysema, unspecified; K21.9 Gastro-esophageal reflux disease without esophagitis; Z79.01 Long term (current) use of anticoagulants; Z79.899 Other long term (current) drug therapy; Z87.891 Personal history of nicotine dependence
CPT/HCPCS: 20604; 71046; 71260; 73030; 73201; 73223; 74177; 76604; 77002; 80048; 81003; 81015; 83605; 84484; 85025; 85027; 87015; 87040; 87070; 87077; 87086; 87186; 87205; 92526; 92610; 93005; 93306; 96374; 97116; 97163; 97530; 99285; A9575; Q9950; Q9967